=== PATIENT | female | born 1950 | race Caucasian/White ===

== ENCOUNTER 2023-12-14 12:51 | Inpatient (IN) | payer MEDICARE, SELFPAY ==
[2023-12-14] VITALS (15 sets, daily range): BP systolic 122–181; BP diastolic 54–99
[2023-12-14 08:58] LABS: Glucose - Point of Care 313 mg/dl (70-99)
--- NOTE | 2023-12-14 08:59 | ED.CVA ---
History of Present Illness
General
Chief Complaint: CVA/TIA Symptoms
Source: patient and other (Partner)
Time Seen by Provider: 12/14/23 08:49
Onset of Stroke Symptoms
Onset of symptoms known: No
Time pt last seen normal is known: Yes
Date last time pt seen normal: 12/13/23
Travel History
Have you had any contact with someone who has COVID-19?: No
Do you have any symptoms of coronavirus? Fever > 100 degrees, chills, cough, shortness of breath, sore throat, loss of taste or smell, muscle aches, or headache?: No
History of Present Illness
History of Present Illness:
73-year-old female with history of diabetes who presents with flaccid right upper extremity and right lower extremity. She does report difficulty with her speech. Patient went to bed around 10 PM and felt normal. She did get up in the middle
night a few times to go to the bathroom. Partner and patient states that she was able to go to the bathroom at 4 AM and walked okay. When she got up at 7 AM to go to the bathroom she did not. Partner admits that she does not really see medical
care. She has not seen a doctor in many years. She has been taking metformin but has not checked her sugars and does not get lab work. He is unaware of any other medical conditions but admits she has not had other preventive care. No chest pain.
No headache.
Past History
Past History
ED Past Medical History: NIDDM
Phy Exam
Physical Exam
Physical Exam:
CONSTITUTIONAL Patient alert and oriented to person, place and time. Vital signs reviewed.
HEAD atraumatic, normocephalic.
EYES eyelids normal to inspection, Pupils equally round and reactive to light, Extraocular muscles intact, Conjunctiva normal, Sclera normal.
NECK normal range of motion, Trachea midline, no jugular venous distention.
RESPIRATORY CHEST No respiratory distress noted, Chest expansion equal, Bilateral breath sounds clear.
CARDIOVASCULAR regular rate and rhythm, Heart sounds normal.
UPPER EXTREMITY no cyanosis, no edema.
LOWER EXTREMITY l, no cyanosis, no edema.
NEURO slurred speech, flaccid right upper extremity, flaccid right lower extremity, right facial droop.
SKIN skin warm, dry, and normal in color.
PSYCHIATRIC patient oriented to person place and time, Normal affect.
Course
Orders/Labs/Results
Orders:
Orders
12/14/23 08:48
Electrocardiogram (*1) Urgent
Reason for Study: Chest Pain
Cardiac Monitoring- Treatment ONCE
EKG- Treatment ONCE
IV Insert/Care/Rem.- Treatment PRN
12/14/23 08:58
CT Head/Neck Ang STROKE ALERT Urgent
Comment:
Reason For Exam: R sided paralysis
12/14/23 08:59
CT Head W/o Cont STROKE ALERT Urgent
Comment:
Reason For Exam: R side paralysis
12/14/23 09:21
Comprehensive Metabolic Panel Urgent
Prothrombin Time Urgent
12/14/23 09:23
Complete Blood Count/With Diff Urgent
Glycohemoglobin (HgbA1c) Urgent
Troponin I Urgent
12/14/23 09:34
MR Brain Without Contrast Urgent
Comment:
Reason For Exam: Right hemiplegia, ? left pontine or subcort vs MCA
Recent pill cam endoscopy?: No
12/14/23 09:35
Aspirin 300 mg RECTAL NOW STA
12/14/23 09:45
Aspirin 300 mg .ROUTE .STK-MED ONE
12/14/23 09:50
Speech Therapy Eval & Treat Urgent
12/14/23 Lunch
IDDSI 4 - Pureed
At Your Request: Limited, Event Planning Intern Required
Does patient need a safe tray?: No
Reason for opting out of Delivery Driver order writing: Provider Decision
12/14/23 10:23
Occupational Therapy Consult [Ot Eval And Treat] Routine
Physical Therapy Consult [Pt Eval And Treat] Routine
Activity Level: Out of Bed- Chair
12/14/23 10:24
NIH Stroke Scale As Directed
Directions: Per protocol
Comment: Please until order to stop
Neurological Checks As Directed
Frequency: Per unit guidelines
12/14/23 12:29
Admit/Transfer Patient As Directed
Co-Sign Provider:
Level of Care: Inpatient admission
Assign to:: IMU- Intermediate Care
Physician / Group: Stanislaw
Diagnosis: Acute stroke
Reason for Hospitalization: see progress note
Expected length of stay greater than two midnights?: Yes
ELOS- Estimated Length of Stay in days: 4
I certify the patient meets the requirements for IP care: Yes
12/14/23 12:30
Code Status As Directed
Resuscitation Status: Full Code
12/14/23 14:01
Acetaminophen [Tylenol/Feverall] 650 mg RECTAL Q4HPRN PRN
Acetaminophen [Tylenol] 650 mg PO Q4HPRN PRN
Dextrose 50%-Water [Dextrose 50% Syringe] 12.5 grams IV [id number] PRN
Glucagon [GlucaGen] 1 mg IM PRN PRN
12/14/23 14:01
Case Management Consult ONCE
Case Management Consult: Discharge Planning
Comment: stroke/tia
DIETARY CONSULT Routine
Reason for Consult: stroke/TIA
NEUROLOGY CONSULT Urgent
Consulting Provider: Daniel Riley
Was physician already notified: Yes
Reason for consult: stroke
Pharmacist Urgent
Activity As Directed
Activity Level: With Assistance
As Tolerated
Bedside Glucose Monitoring As Directed
Frequency: AC&HS
Comment: Change to q6h if pt on TPN, tube feeding or not eating
NIH Stroke Scale As Directed
Directions: Per protocol
Comment: every shift and with any change in condition or mental status
Neurological Checks As Directed
Frequency: q4h
Additional Instructions:: q4h x 24h upon admission to the floor, then qshift & with any change in condition
and mental status
Patient Education As Directed
Type: Stroke education packet
Comment: provide to patient and family
Pneumatic Compression Sleeves As Directed
Type: Knee high
Vital Signs As Directed
Frequency: Per unit guidelines
DX Deep Vein Thrombosis Video Routine
12/14/23 16:30
Insulin Aspart Corrective Mod [Novolog Flexpen-Moderate Resistance] See Protocol SC AC
12/15/23
Echo 2D MMode Color/Doppler Routine
Reason for Study: Thrombotic source for stroke-like sxs
12/15/23 05:43
Cardiovascular Evaluation IN AM
12/15/23 08:00
Aspirin 300 mg RECTAL DAILY
Aspirin Low Dose EC [Aspir Low (Enteric Coated)] 81 mg PO DAILY
12/15/23 18:00
Atorvastatin [Lipitor] 40 mg PO QPM
Abnormal Lab Results
12/14/23 12/14/23 12/14/23
08:47 09:21 09:23
MCV 72.7 L fL
(81.0-99.0)
MCH 23.1 L pg
(27.0-31.0)
MCHC 31.8 L g/dL
(33.0-37.0)
RDW 14.6 H %
(11.5-14.5)
Plt Count 521 H 10^3/uL
(130-400)
MPV 10.5 H fL
(7.4-10.4)
Absolute Monos (auto) 0.8 H 10^3/uL
(0.1-0.6)
Sodium 134 L mmol/L
(135-145)
Creatinine 0.4 L mg/dL
(0.6-1.0)
Glucose 321 H mg/dl
(70-99)
Hemoglobin A1c 12.9 H %
(4.0-5.6)
POC Glucose 313 H mg/dl
(70-99)
12/14/23 09:23
12/14/23 09:21
Vital Signs
Initial and Last Documented VS:
Initial Vital Signs
BP
181/88
12/14/23 08:46
Last Documented Vital Signs
Temp Pulse Resp BP Pulse Ox
99.9 F 95 23 120/99 96
12/15/23 15:13 12/15/23 14:00 12/15/23 14:00 12/15/23 12:00 12/15/23 14:00
MDM/Problems Addressed
MDM/Problems Addressed:
Acute CVA, hyperglycemia, uncontrolled hypertension
Acute Exacerbation and/or Progression of Chronic Illness: DM
*Radiology
Radiology exam reviewed: radiology read reviewed
*Pulse Oximetry
Patient hypoxic: no
*EKG
Interpreted by ED Provider?: Yes
Interpretation: abnormal
Rate: normal
Rhythm: sinus
[place]: normal axis
QRS Pattern: right bundle branch block
Ischemia: no ischemia
*Homeworker Interpretation
Rate: normal
Interpretation: normal
Rhythm: sinus
*Critical Care Note
Total Time (30-74mins, 75-104mins- exclusive of procedures): 40 minutes
Data Reviewed
Prescriptions/Medications Considered But Not Given:
Consider tPA but outside window for tPA
Patient Management
Discussion with other providers: Hospitalist and Fourdrinier Machine Operator (Case discussed with neurology. Patient was seen by neurology. tPA not recommended admit)
ED Attending Note
-
Portions of this chart may have been created with voice recognition software.� Occasional wrong word or��sound alike� substitutions may have occurred due to the inherent limitations of voice recognition software.
Discharge Plan
Departure
Patient Disposition: Admit
Date of Disposition: 12/14/23
Time of Disposition: 10:00
Admit to: Telemetry
Presentation/result/management discussed w/ accepting MD/DO: Hospitalist
Discharge Problem:
Acute cerebrovascular accident (CVA), Acute hyperglycemia, Uncontrolled hypertension
Interventions
Interventions:
*Risk Screen - Suicide Last Done: 12/14/23 09:17
*General Assessment Last Done: 12/14/23 09:16
*Neglect/Abuse Screening Last Done: 12/14/23 09:17
ED- Fall Risk Assessment Last Done: 12/14/23 09:17
*ED COVID-19 Vaccine History Last Done: 12/14/23 09:16
*Nursing Disposition Last Done: 12/14/23 14:00
ED- Pulmonary Assessment Last Done: 12/14/23 09:28
ED- Neurological Assessment Last Done: 12/14/23 12:58
ED- Cardiac Assessment Last Done: 12/14/23 09:24
ED Swallowing Screen Last Done: 12/14/23 09:49
Discharge Date and Time
Discharge Date/Time: 12/14/23 14:00
--- NOTE | 2023-12-14 09:00 | CON.NEURO4 ---
Addendum entered and electronically signed by Daniel Riley MD 12/15/23 07:24:
NIH stroke scale of 14 on admission
Original Note:
Consultation - Neurology 4
-
CONSULTING PHYSICIAN: Edvin Riley
REFERRING PHYSICIAN: ER
DICTATED BY: Edvin Riley
DATE/TIME OF REQUEST: 12/14/23
DATE/TIME OF CONSULTATION: 12/14/23
Reason for Consultation: Stroke alert, right sided weakness
History of Present Illness:
Patient is a 73 year old right handed woman with history of diabetes mellitus presenting to hospital as stroke alert due to right sided face, arm, and leg hemiplegia. Her last known well was at approximately 4 AM when she got up and walked
normally to urinate. She went to bed last night normal. No recent illnesses or head or neck trauma, takes Metformin for diabetes mellitus, no history of stroke or TIA previously, not on chronic antiplatelets or anticoagulation. No headache
currently.
Past Medical History: Diabetes mellitus
Surgical History: None
Family History: Reviewed and non-contributory
Social History: Lives with her partner, 2 children, retired, no tobacco or cigarettes
Allergies: No known drug allergies
Home Medications: Metformin
Review of Symptoms:
Patient denies any fever, headache, chest pain, shortness of breath, GI or symptoms.
Physical Exam:
Elderly woman, no signs of head or neck trauma, eyes clear, oropharnyx dry, no neck masses, no meningismus, heart rate regular no murmur appreciated, breathing unlabored, abdomen soft non tender, no lower extremity edema seen, no rash or joint
deformity
Neurologic Examination:
Mental Status: Awake and alert, obeys commands consistently, naming, repetition of complex phrases is intact with no evidence for aphasia, no overt hemineglect,
CN: Significant dysarthria present, significant right facial droop present, pupils 3mm equal round and reactive to light bilaterally, visual ac intact to confrontation bilaterally, resting gaze is midine with no gaze preference seen, extra
ocular movements are full
Motor: Right arm and leg flaccid with no movement/hemiplegia 0/5 movement, drops to the table when held in the air, left arm and leg with no drift
Sensory: Decreased to sensation on the right arm and leg
Reflexes: Absent on the right side, 1+ left biceps tricepa patella and achilles
Coordination: No ataxia on left arm and leg, limited due to weakness on the right arm and leg
Gait: Unable to assess
Neuro Imaging:
CT head non contrast with mild hypoattenuation at left insular ribbon, ASPECTS of 9, no chronic infarcts seen, no hemorrhage, no masses or edema, no ventriculomegaly
CTA head and neck no large vessel occlusion seen in territories bilaterally, no carotid stenosis or dissection seen, vertebral arteries and basilar artery patent, no aneurysms seen
Impressions
1. Most likely a left-sided subcortical ischemic stroke in the lucy, thalamus, or basal ganglia producing right side motor/sensory lacunar syndrome with right sided facial weakness, dysarthria/dysphagia and right arm and leg hemiplegia. Most
likely due to small vessel disease with diabetes, possibly undiagnosed hypertension and hyperlipidemia
2. Hyperglycemia
3. Diabetes mellitus type 2, not on on insulin
Patient has the following risk factors for their symptoms:Diabetes, age
IV Tenecteplase/IAT candidacy: Patient with last known normal at 4 AM this morning she woke up to urinate and was able to walk normally for this, greater than 4.5 hours since last known well so is not candidate for thrombolytics/TNK, no large
vessel occlusion on CTA head and neck not an IAT candidate
Recommendations:
1. Permissive hypertension goal less than 220/120 until tomorrow morning at 8 AM, then goal normotension
2. Neurologic checks and NIH scales
3. Goal normoglycemia treat significant hyperglycemia present on admission
4. Cardiac telemetry and check TTE
5. Check MRI of the brain without contrast
6. Aspirin 300 mg daily rectally for now, depending on infarct size on MRI may add clopidogrel
7. Start Atorvastatin 40 mg daily if able to take PO
8. Speech, physical, occupational therapies
9. Stroke education materials
10. Aspiration precautions
11. DVT prophylaxis with IPC's and subcutaneous heparin is appropriate
Total time = 90 minutes
Will follow
Discussed patient care with: Patient and her spouse, ER
--- NOTE | 2023-12-14 09:23 | EDRN ---
Dr. Riley w/ pt at 8:[address] scan and now w/ pt again.
[2023-12-14 09:26] LABS: % Basophils 0.5 % (0-2); % Eosinophils 1.4 % (0-6); % Immature Granulocytes 0.3 % (0-0.5); % Lymphocytes 26.3 % (20.5-51.1); % Monocytes 8.5 % (1.7-9.3); Absolute Basophils 0.1 10^3/uL (0-0.2); Absolute Eosinophils 0.1 10^3/uL (0-0.7); Absolute Lymphocytes 2.4 10^3/uL (1.2-3.4); Absolute Monocytes 0.8 10^3/uL (0.1-0.6); Absolute Neutrophils 5.8 10^3/uL (1.4-6.5); Hematocrit 38.7 % (37.0-47.0); Hemoglobin 12.3 g/dL (12.0-16.0); Mean Corp Hgb Conc. 31.8 g/dL (33.0-37.0); Mean Corpuscular Hgb 23.1 pg (27.0-31.0); Mean Corpuscular Volume 72.7 fL (81.0-99.0); Mean Platelet Volume 10.5 fL (7.4-10.4); Nucleated Red Blood Cells % 0 %; Platelet Count 521 10^3/uL (130-400); Red Blood Cell Count 5.32 10^6/uL (4.20-5.40); Red Cell Dist. Width 14.6 % (11.5-14.5); White Blood Cell Count 9.3 10^3/uL (4.8-10.8)
[2023-12-14 09:38] LABS: INR 1.02; PT 13.2 Sec (11.4-14.6)
--- NOTE | 2023-12-14 09:42 | EDRN ---
Dr. Riley speaking w/ pt and life partner. Explaining MRI to pt and partner.
[2023-12-14] MEDS: ASPIRIN 300 MG RECTAL (09:46)
[2023-12-14 09:52] LABS: ALT (SGPT) 22 U/L (0-35); AST (SGOT) 21 U/L (14-36); Albumin 4.6 g/dl (3.5-5.0); Alkaline Phosphatase 85 U/L (38-126); Blood Urea Nitrogen 11 mg/dl (7-17); Carbon Dioxide 22 mmol/L (22-30); Chloride 100 mmol/L (98-107); Estimated Creatinine Clearance 91 ml/min; Glucose 321 mg/dl (70-99); Potassium 4.3 mmol/L (3.5-5.1); Sodium 134 mmol/L (135-145); Total Bilirubin 0.8 mg/dl (0.2-1.3); Total Protein 7.4 g/dl (6.3-8.2); eGFR > 60.00
[2023-12-14 09:55] LABS: Troponin I < 0.012 ng/ml
--- NOTE | 2023-12-14 10:25 | EDRN ---
Speech therapist in to see pt. Speech therapist stated pt needs stage 5 pureed foods r/t pocketing food in R cheek though does well w/ small sips through a straw.
--- NOTE | 2023-12-14 10:50 | PTOTSP ---
Speech Therapy
Presentation: Patient's expressive output was limited (less than 1 utterance at a time) likley related to possible expressive aphasia and dysarthria (imprecise consonant production, low volume/ tone) during informal conversation with UNIONMELT OPERATOR and
significant other. Right sided weakness/ droop noted.
Swallowing Function: UNIONMELT OPERATOR trialed thins via straw (small, single), puree, softened solids, and regular consistency solids in which patient did not exhibit any overt clinical s/sx of aspiration. Patient did demonstrate right sided oral weakness which
was evidenced by droop, minimal anterior leakage of thin liquids x1, and pocketing of softer solids and regular consistency solids. Given the above information, presentation, and stroke workup, recommend trial of IDDSI level 4 (puree) solids and
thin liquids (via straw, small single sips) with full assistance and supervision and consideration of VSE to r/o silent aspiration.
Recommendations:
1) Trial of IDDSI level 4 (puree) solids and thin liquids (SMALL, SINGLE) sips
2) Strict aspiration precautions
3) Medications as tolerated
4) FULL assistance and supervision with PO
Plan: UNIONMELT OPERATOR will continue to follow; pending hospitalization.
--- NOTE | 2023-12-14 12:06 | PHANOTE ---
Addendum entered by Garett Fontenot 12/14/23 13:17:
12/14/2023, med rec tech, life partner brought pt.'s meds. to hospital allowing me to confirm them.
Original Note:
12/14/2023, med rec tech, spoke to pt.'s life partner to obtain pt.'s med. history; pt. gets her meds. filled in [place]; life partner states that he will bring pt.'s meds. to ; could not confirm with pharmacy fill data or ECW.
--- NOTE | 2023-12-14 12:08 | EDRN ---
Pt's spouse went home to get blister packs of medications.
--- NOTE | 2023-12-14 12:31 | EDRN ---
Dr. Dover in room w/ pt.
--- NOTE | 2023-12-14 13:01 | HPS.HSE ---
Family Physician
-
Family Physician: Bryan Beverly
Chief Complaint
-
Right sided weakness
History of Present Illness
Patient with a history of diabetes on oral hypoglycemic agents and most of her care is in [facility]. She has been here in for 30 years but she goes back and forth and she has doctors there and medical care there. She has not seen a physician here
lately. Has not seen any specialist.She gets her medications from [facility] as well.
She lives with her life partner of 30 years.
No prior history of stroke. She apparently went to bed around 10 PM and felt okay. He got up in the middle of the night to go to the bathroom that was around 4 AM. She got up at 7 AM to go to the bathroom and she can go.
She noted to have right-sided facial droop, right arm and right leg weakness.
Stroke alert was called. Was seen by neurology felt not a candidate for tPA. CT head angiogram showed no evidence of large vessel occlusion.
Denies any headache.
Because of facial weakness she has got some slurred speech but does not seems to be aphasic.
Son arrived at bedside who was able to help me with the past medical history.
Medical History
Past Medical History
Past Medical History: Reports NIDDM; Denies Asthma, CAD, CVA, HTN or Hypercholesterolemia
Past Surgical History: Reports None
Social History
Tobacco: Non-smoker
Alcohol: None
Drug: None
Living: With Family
Employment: Retired
Family History
Family History: Not pertinent
Allergies / Home Medications
Allergies reflects when Allergies were last updated in [facility].
Home Medications with original date entered in [facility]
Allergy/Medication List:
Allergies
Allergy/AdvReac Type Severity Reaction Status Date / Time
No Known Allergies Allergy Unverified 12/14/23 08:47
Home Medications
Lercan 10 mg PO DAILY 12/14/23
esomeprazole magnesium 40 mg capsule,delayed release 40 mg PO DAILY 12/14/23
melatonin 1 gummy PO HSPRN PRN sleep 12/14/23
sitagliptin phosphate 50 mg-metformin 1,000 mg tablet 1 tab PO BID 12/14/23
Review of Systems
-
Unable to obtain full review of systems at this time due to: Other (Difficult because of his slurring of speech because of right facial weakness.)
Physical Exam
Vital Signs
Vital Signs
Temp Pulse Resp BP Pulse Ox
98.3 F 74 19 167/80 94
12/14/23 08:49 12/14/23 12:00 12/14/23 12:00 12/14/23 12:00 12/14/23 12:00
Physical Exam
General: No Apparent Distress
HEENT: Moist mucous membranes
Respiratory: Clear
Cardiac: S1/S2 and Regular Rhythm; No Murmur
GI: Soft, Non Tender, Non Distended and Normal Bowel Sounds
Musculoskeletal: No Edema
Neuro: AO x 3, Slurred Speech and Facial Droop (Right side); No No Motor Deficits (Dense right hemiplegia-strength 1 out of 5 currently both upper and lower extremity. Right facial palsy as well noted.) or Tremors
Psych: Calm
Laboratory Results
-
12/14/23 09:23
12/14/23 09:21
Laboratory Results
PT 13.2 Sec (11.4-14.6) 12/14/23 09:21
INR 1.02 12/14/23 09:21
Total Bilirubin 0.8 mg/dl (0.2-1.3) 12/14/23 09:21
AST 21 U/L (14-36) 12/14/23 09:21
ALT 22 U/L (0-35) 12/14/23 09:21
Alkaline Phosphatase 85 U/L (38-126) 12/14/23 09:21
Troponin I < 0.012 ng/ml 12/14/23 09:23
Data Reviewed
-
CT Scan: Report Reviewed by me (CT angiogram of the head and neck)
MRI: Report Reviewed by me (MRI of the brain)
Lab Data: Labs Reviewed by me
Impression/Plan
-
Acute stroke-patient presented with right face, arm and leg weakness. Out of tPA window. No large vessel occlusion noted. MRI of the brain confirms 3 cm nonhemorrhagic subacute infarct involving the posterior aspect of the lentiform nucleus,
posterior limb of the internal capsule, posterior body of the caudate and tail of the caudate on the left.
Admit to IMU to closely monitor hemodynamics.
Follow stroke protocol.
Permissive hypertension for 24 hours treat only more than 220/120.
Hold antihypertensives.
Aspirin daily. Plavix per neurology.
Follow on telemetry.
Check an echocardiogram.
check lipid panel but initiate on statins for now.
PT OT and speech eval
Diabetes mellitus-check hemoglobin A1c. Start on sliding scale insulin. Hold oral hypoglycemic agents.
Full code
--- NOTE | 2023-12-14 15:04 | PTCARENOTE ---
Rec'd pt from ED, S/P CVA with right side flaccid, right side facial droop. Pt NIHSS 14, unchanged from Ed. Pt with some returning sensation to right side. Family at bedside. Pt with red, large excoriated area to left groin, present on admission.
reports feeling fatigued but no pain. no appetite at this time. Inc of urine. vital sgns stable. Pt and family oriented to unit protocols and procedures.
[2023-12-14 17:20] LABS: Glucose - Point of Care 215 mg/dl (70-99)
[2023-12-14] MEDS: NOVOLOG FLEXPEN-MODERATE RESISTANCE 3 UNITS SC (17:42)
[2023-12-14 21:28] LABS: Glucose - Point of Care 244 mg/dl (70-99)
[2023-12-14] MEDS: MELATONIN 3 MG PO (23:42)
[2023-12-15] VITALS (14 sets, daily range): BP systolic 120–184; BP diastolic 76–128; PULSE 86; O2SAT 95
--- NOTE | 2023-12-15 06:08 | PTCARENOTE ---
no acute events overnight- NIH remains 13- right arm and leg flaccid- decreased sensation to both but patient reports it is getting better. vitals stable, q2t. family at bedside, staying the night. neuro checks completed [id number] per protocol. PW
intact- full bed bath given. pt given PRN melatonin for sleep with positive results. care ongoing.
[2023-12-15 06:27] LABS: HDL Cholesterol 39 mg/dl; LDL Cholesterol, Calculated 146 mg/dl; Total Cholesterol 239 mg/dl (50-199); Triglyceride 274 mg/dl (10-149); Very Low Density Lipoprotein 54 mg/dl (0-30)
--- NOTE | 2023-12-15 07:21 | W.PN.NEURO.1 ---
Today's Communication / Plan
-
-Goal normotension
-Goal normoglycemia, HbA1c pending
-Speech therapy input appreciated, modified diet, aspiration precautions
-Aspirin 81 mg monotherapy, no DAPT given high NIH scale and no intracranial atherosclerosis
-Discussed stroke prognosis and expectations for recovery, secondary stroke prevention, importance of medications and control of diabetes
-Atorvastatin 40 mg daily
-Transthoracic echocardiogram and cardiac telemetry
-PT/OT evaluations
-Eventual PM&R evaluation
Will follow
Neuro Assessment/Plan
Assessment
73 year old woman with diabetes, GERD, obesity presenting to hospital with acute onset of right face, arm and leg severe weakness and hyperglycemia.
Was not candidate for TNK/thrombolytics with outside the 4.5 hour window
No large vessel occlusion on CTA of the head and neck
MRI shows moderate sized ischemic infarction on the right basal ganglia, internal capsule, right sided white matter/palm radiata, no hemorhrages, no other areas of infarction
LDL 146
Blood glucose 313 on admission, HbA1c pending
CTA head and neck with no significant intracranial or cervical artey stenosis
Highest suspicion for etiology is small vessel disease given diabetes, hyperlipidemia, obesity and subcortical infarction with lacunar syndrome.
Cardioembolic mechanism still possible but felt less likely
Subjective/Objective
Subjective Data
Date of Service: December 15, 2023
No acute events, seen by speech therapy, had brain MRI, she is showing a little bit of wiggling the foot and toes on the right, denies any headache
Objective Data
Vital Signs
Temp Pulse Resp BP Pulse Ox
98.3 F 71 17 149/76 94
12/15/23 03:10 12/15/23 06:00 12/15/23 06:00 12/15/23 06:00 12/15/23 06:00
Lab Results
12/14/23 09:23
12/14/23 09:21
PT 13.2 Sec (11.4-14.6) 12/14/23 09:21
INR 1.02 12/14/23 09:21
Sodium 134 mmol/L (135-145) L 12/14/23 09:21
Potassium 4.3 mmol/L (3.5-5.1) 12/14/23 09:21
BUN 11 mg/dl (7-17) 12/14/23 09:21
Glucose 321 mg/dl (70-99) H 12/14/23 09:21
Calcium 10.0 mg/dl (8.4-10.2) 12/14/23 09:21
LDL Cholesterol, Calc 146 mg/dl 12/15/23 05:43
Patient Allergies
No Known Allergies Allergy (Unverified 12/14/23 08:47)
LDL Level: >70, statin ordered
Review of Systems
-
History Source: Patient
All other systems: Reviewed and negative
Constitutional: No Symptoms
EENT: No Symptoms Reported
Respiratory: No Symptoms
Cardiac: No Symptoms
Abdomen/GI: No Symptoms
Genitourinary: No Symptoms
Musculoskeletal: No Symptoms
Skin: No Symptoms
Neuro: Weakness; Negative Headache
Endocrine: No Symptoms
Hematologic / Lymphatic: No Symptoms
Allergy / Immunology: No Symptoms
Physical Exam
-
General: No Apparent Distress and Obese
Eyes: No Ptosis
HEENT: Atraumatic and Moist Mucous Membranes
Neck: Full Range of Motion
Respiratory: No Dyspnea; Negative Wheezes or Rales
Cardiac: No Murmur and S1/S2
GI: Soft and Non-tender
Skin: Warm and Dry
Extremities: No Cyanosis and No Edema
Psych: Negative Agitated
Extended Neurological Exam
Attention Span & Concentration: Awake, Alert, Interactive and Other (Awake, conversational, some psychomotor slowing)
Memory: Able to Recall
Tremor: Hand Tremor Absent
Involuntary Movement: None
Speech: Dysarthric and Other (Naming repetition comprehension intact); Negative Expressive Aphasia or Receptive Aphasia
Cranial Nerve II: Left Eye: Pupillary Reactivity Unremarkable, Pupillary Size Unremarkable and Visual Rosen Intact
Cranial Nerve II: Right Eye: Pupillary Reactivity Unremarkable, Pupillary Size Unremarkable and Visual Rosen Intact
Cranial Nerves III, IV, : Extraocular Movement: Extraocular Movement Full in all Directions
Cranial Nerve VII: Facial Symmetry: Other (Right facial weakness)
Muscle Strength, Overall: Other (Hypotonic right arm which is 0/5, hypotonic right leg which shows 1/5 movements of right toes, left arm and leg full strength)
Touch Sensation: Other (Intact to light touch on arms and legs bilaterally today)
Babinski Sign: Present on Right
Gait & Station: Unable to Assess
Data Reviewed
-
CT-A: Report Reviewed and Image Reviewed
CT Head: Report Reviewed and Image Reviewed
MRI Head: Report Reviewed and Image Reviewed
Echocardiogram: Ordered and Pending
Labs: Report Reviewed
Lipid Profile: Report Reviewed
HgbA1C: Pending
[2023-12-15 07:44] LABS: Glucose - Point of Care 258 mg/dl (70-99)
[2023-12-15] MEDS: NOVOLOG FLEXPEN-MODERATE RESISTANCE 5 UNITS SC ×2 (08:10→12:45)
[2023-12-15] MEDS: NON-FORMULARY ITEM 10 MG PO (08:11)
[2023-12-15] MEDS: PROTONIX 40 MG PO (08:11)
[2023-12-15] MEDS: ASPIR LOW (ENTERIC COATED) 81 MG PO (08:11)
--- NOTE | 2023-12-15 09:41 | W.PN.HOSP.TC ---
Today's Communication/Plan
-
Continue with current treatments
Continue PT OT eval
Consult cattle tester
Follow blood pressure readings and consider transfer out of IMU
Assessment / Plan
Assessment / Plan
Acute stroke-patient presented with right face, arm and leg weakness. Out of tPA window. No large vessel occlusion noted. MRI of the brain confirms 3 cm nonhemorrhagic subacute infarct involving the posterior aspect of the lentiform nucleus,
posterior limb of the internal capsule, posterior body of the caudate and tail of the caudate on the left.
ASA tx ;no Plavix indicated per neuro
Statins initiated.
Continue antihypertensive Friday optimize blood pressure as needed
Await hemoglobin A1c.
Follow on telemetry.
Check an echocardiogram.
Lipid panel noted.
PT OT and speech eval
Consult cattle tester.
Diabetes mellitus-check hemoglobin A1c. Continue on sliding scale insulin. Hold oral hypoglycemic agents.
Full code
Transfer to telemetry later today depending on blood pressure readings
Anticipated Discharge: > 48 hours
Subjective/Interval History
-
Date of Service: December 15, 2023
Remains weak on the right side. Not much improvement yet. No headache.
Objective Data
-
Vital Signs:
Vital Signs
Temp Pulse Resp BP Pulse Ox
97.8 F 80 16 162/95 95
12/15/23 07:13 12/15/23 08:00 12/15/23 08:00 12/15/23 08:00 12/15/23 08:22
I&O
12/14/23 12/15/23 12/16/23
06:59 06:59 06:59
Output Total 450 / 450
Balance -450 / -450
Review of Systems
-
Respiratory: Denies Trouble Breathing
Cardiac: Denies Chest Pain or Palpitations
Abdomen/GI: Denies Nausea or Vomiting
Neuro: Denies Dizzy
Physical Exam
-
General: No Apparent Distress
HEENT: Moist Mucous Membranes
Respiratory: Clear to Auscultation
Cardiac: Regular Rhythm and S1/S2
GI: Soft
Neuro: AO x 3 and Facial Droop (rt facial droop); Negative No Motor Deficits (rt hemiplegia as yesterday), Tremors or Slurred Speech
Psych: Calm
Data Reviewed
-
Labs: Labs Reviewed by me
[2023-12-15 09:52] LABS: Glycohemoglobin (HgbA1c) 12.9 % (4.0-5.6)
[2023-12-15 12:42] LABS: Glucose - Point of Care 297 mg/dl (70-99)
--- NOTE | 2023-12-15 13:12 | CM ---
Addendum entered by Miladys Li RN 12/15/23 13:37:
Clarification: the patient resides with her SO Marissa.
Original Note:
Patient with Dx Acute stroke. Room air. Dysphagia diet. PT & OT recommend acute rehab. Physiatry Consult pending.
Met with patient, SO Marissa & son Eduar;
the patient resides in a 2 story house with 5 ESDRAS, patient was using bedroom/bathroom with bathtub on second floor.
There is a bedroom/bathroom with standing shower on first floor.
The patient was independent in ADLs and ambulation without using an assistive device.
She was active and driving.
The patient has no DME, prior VN or SNF.
PCP - Bryan Beverly
Pharmacy - [facility]
Discussed acute rehab - Marissa & Eduar may be interested in [facility] or [facility] in [place]. They were made aware that refrigerator mover will see her.
Spoke with [facility] Liaison; Dr Lloyd will see the patient. She currently does not have an available bed.
Referrals placed in [facility] for [place] & [place].
Plan follow up after seen by physiatry.
--- NOTE | 2023-12-15 13:48 | PTCARENOTE ---
Pt presents as assessed. Aox3, occasional slurred speech. NIH of 15- see neuro flowsheet. Neuro checks done Q4 hours per orders. NSR on tele monitor. Pt tearful at times, emotional support provided. Family at bedside; updated and educated on plan of
care. Ringing appropriately, call alonso within reach.
--- NOTE | 2023-12-15 14:28 | PTOTSP ---
Dysphagia Therapy
Patient presents with signs concerning for at least mild oral dysphagia. No significant overt signs or complaints of pharyngeal dysphagia and no overt s/s of aspiration observed at this time.
Recommend:
1. IDDSI Level 6 (soft and bite sized), IDDSI Level 0 (thin liquids)
2. Strategies: upright to 90 degrees, small single sips/bites, slow rate, alternate solids and liquids to assist with oral clearance, check for pocketing
3. Continued dysphagia therapy at the acute care level and/after D/C. Video swallow study would be required to r/o unilateral pharyngeal weakness and/or silent aspiration s/p stroke.
4. Continued speech/language therapy at the acute care level and after D/C.
[2023-12-15 18:10] LABS: Glucose - Point of Care 242 mg/dl (70-99)
[2023-12-15] MEDS: NOVOLOG FLEXPEN-MODERATE RESISTANCE 3 UNITS SC (18:43)
[2023-12-15] MEDS: LIPITOR 40 MG PO (18:44)
[2023-12-15 22:00] LABS: Glucose - Point of Care 299 mg/dl (70-99)
[2023-12-16] VITALS (12 sets, daily range): BP systolic 103–154; BP diastolic 83–105; PULSE 99; O2SAT 93
--- NOTE | 2023-12-16 06:41 | PTCARENOTE ---
no acute events overnight, family remains at bedside throughout the night. pt reports sensation to right side is back to normal.
--- NOTE | 2023-12-16 07:24 | W.PN.NEURO.1 ---
Today's Communication / Plan
-
-Goal normotension
-Goal normoglycemia high HbA1c
-Speech therapy input appreciated, modified diet, aspiration precautions
-Aspirin 81 mg monotherapy, no DAPT given high NIH scale and no intracranial atherosclerosis
-Atorvastatin 40 mg daily
-PT/OT evaluations
-Eventual PM&R evaluation
Neuro Assessment/Plan
Assessment
73 year old woman with diabetes, GERD, obesity presenting to hospital with acute onset of right face, arm and leg severe weakness and hyperglycemia.
Was not candidate for TNK/thrombolytics with outside the 4.5 hour window
No large vessel occlusion on CTA of the head and neck
MRI shows moderate sized ischemic infarction on the right basal ganglia, internal capsule, right sided white matter/palm radiata, no hemorhrages, no other areas of infarction
LDL 146
Blood glucose 313 on admission, HbA1c pending
CTA head and neck with no significant intracranial or cervical artey stenosis
Highest suspicion for etiology is small vessel disease given diabetes, hyperlipidemia, obesity and subcortical infarction with lacunar syndrome.
Cardioembolic mechanism still possible but felt less likely
Plan
-Goal normotension
-Goal normoglycemia high HbA1c
-Speech therapy input appreciated, modified diet, aspiration precautions
-Aspirin 81 mg monotherapy, no DAPT given high NIH scale and no intracranial atherosclerosis
-Atorvastatin 40 mg daily
-PT/OT evaluations
-Eventual PM&R evaluation
Subjective/Objective
Subjective Data
Date of Service: December 16, 2023
Objective Data
Vital Signs
Temp Pulse Resp BP Pulse Ox
37.1 C 87 20 146/93 94
12/16/23 03:11 12/16/23 06:00 12/16/23 06:00 12/16/23 06:00 12/16/23 06:00
Lab Results
12/14/23 09:23
12/14/23 09:21
PT 13.2 Sec (11.4-14.6) 12/14/23 09:21
INR 1.02 12/14/23 09:21
Sodium 134 mmol/L (135-145) L 12/14/23 09:21
Potassium 4.3 mmol/L (3.5-5.1) 12/14/23 09:21
BUN 11 mg/dl (7-17) 12/14/23 09:21
Glucose 321 mg/dl (70-99) H 12/14/23 09:21
Calcium 10.0 mg/dl (8.4-10.2) 12/14/23 09:21
LDL Cholesterol, Calc 146 mg/dl 12/15/23 05:43
Patient Allergies
No Known Allergies Allergy (Unverified 12/14/23 08:47)
Data Reviewed
-
MRI Head: Report Reviewed
Labs: Report Reviewed
Lipid Profile: Report Reviewed
HgbA1C: Report Reviewed
Reviewed with: Physician
Old Records: Summarized
Past History
Past History
ED Past Medical History: CVA () and NIDDM
Family History
Family History: Other (reviewed and non-contributory)
Medications
-
Medications:
Generic Name Dose Route Start Last Admin
Trade Name Freq PRN Reason Stop Dose Admin
Acetaminophen 650 mg 12/14/23 14:01
Acetaminophen 650 Mg Rectal Suppository RECTAL 01/11/24 14:00
Q4HPRN PRN
DRISCOLL, mild pain, or temp >100.4F
Acetaminophen 650 mg 12/14/23 14:01
Acetaminophen 325 Mg Tablet PO 01/11/24 14:00
Q4HPRN PRN
DRISCOLL, mild pain, or temp >100.4F
Aspirin 81 mg 12/15/23 08:00 12/15/23 08:11
Aspirin 81 Mg (Enteric Coated) Tablet PO 01/12/24 07:59 81 mg
DAILY TRINY Administration
Atorvastatin Calcium 40 mg 12/15/23 18:00 12/15/23 18:44
Atorvastatin (Lipitor) 20 Mg Tablet PO 01/12/24 17:59 40 mg
QPM TRINY Administration
Dextrose 12.5 grams 12/14/23 14:01
Dextrose 50% (0.5 Grams/Ml) 50 Ml Syringe IV 01/11/24 14:00
[id number] PRN
hypoglycemia
Protocol
Glucagon 1 mg 12/14/23 14:01
Glucagon 1 Mg Vial IM 01/11/24 14:00
PRN PRN
hypoglycemia
Protocol
Insulin Aspart 0 units 12/14/23 16:30 12/15/23 18:43
Insulin Aspart Moderate Resistance 300 Units/3 Ml Pen.Injctr SC 01/11/24 16:29 3 units
AC TRINY Administration
Protocol
Melatonin 3 mg 12/14/23 17:06 12/14/23 23:42
Melatonin 3 Mg Tablet PO 01/11/24 17:05 3 mg
HSPRN PRN Administration
sleep
Lercanidipine [ 0 mg 12/15/23 08:00 12/15/23 08:11
Lercan] 10 Mg, 1 PO 01/12/24 07:59 10 mg
Tablet Po Daily DAILY TRINY Administration
Pantoprazole Sodium 40 mg 12/15/23 08:00 12/15/23 08:11
Pantoprazole 40 Mg Delayed Release Tablet PO 01/12/24 07:59 40 mg
DAILY TRINY Administration
[2023-12-16] MEDS: ASPIR LOW (ENTERIC COATED) 81 MG PO (08:45)
[2023-12-16] MEDS: PROTONIX 40 MG PO (08:45)
[2023-12-16] MEDS: NON-FORMULARY ITEM 1 MG PO (08:46)
--- NOTE | 2023-12-16 09:19 | CON.MD ---
Consultation - Medical
-
Referring Provider: Dr. Josemanuel Dover
Chief Complaint: Stroke
History of Present Illness: 73-year-old right-handed female with PMH (as below) presented to [facility] on 12/14/[facility]23 with right sided weakness when she awoke. CT head with mild hypoattenuation in the left insular ribbon, CT a head of neck
with no large vessel occlusion. Echocardiogram with EF 55-60%. No PFO. MRI noting right basal ganglia, internal capsule, and right-sided white matter/palm radiata infarction. Per neuro felt to be small vessel disease with diabetes, HLD,
obesity, and subcortical infarct with lacunar syndrome, although cardioembolic source cannot be ruled out. Started on aspirin and statin with blood pressure and diabetes control. Noted with at least oral dysphagia and placed on a soft and
bite-size diet with thin liquids per speech.
Past Medical History: Diabetes mellitus, GERD, obesity
Procedure History: None
Family History: Reviewed and noncontributory
Social History:
Functional Level Premorbidly: Independent with all activities
Functional Level Currently:�� Dependent for bed mobility. Min assist eating, mod assist grooming, dependent for toileting and lower extremity self-care.
Tobacco: Denies
Alcohol: Denies
Drug use: Denies
Lives with: Partner of 30 years Felix
24-hour assistance available: Yes
Number of floors: 2
# steps to enter: 5
# steps to second floor: Full flight
Potential First floor set up: Yes, bedroom with standing shower on first floor.
Driving: Yes
Occupation: Retired
Allergies:
Allergy/AdvReac Type Severity Reaction Status Date / Time
No Known Allergies Allergy Unverified 12/14/23 08:47
Review of Systems:
Constitutional: (x) abNormal _fatigue
Eye: (x) Normal _
Ear/Nose/Throat: (x) Normal _
Respiratory: (x) Normal _
Cardiovascular: (x) Normal _
Gastrointestinal: (x) Normal _
Genitourinary: (x) Normal _
Musculoskeletal: (x) Normal _
Integumentary: (x) Normal _
Neurologic: (x) abNormal _stroke with right-sided weakness and difficulty speaking/swallowing
Psychiatric: (x) Normal _
Endocrine: (x) Normal _
Hematologic/Lymphatic: (x) Normal _
Allergic/Immunologic: (x) Normal _
Medications:
Active Current Visit Medication List
Category Date Time Status
Acetaminophen [Tylenol/Feverall] Med 12/14/23 14:01 Active
650 mg RECTAL Q4HPRN PRN
Acetaminophen [Tylenol] Med 12/14/23 14:01 Active
650 mg PO Q4HPRN PRN
Aspirin Low Dose EC [Aspir Low (Enteric Coated)] Med 12/15/23 08:00 Active
81 mg PO DAILY
Atorvastatin [Lipitor] Med 12/15/23 18:00 Active
40 mg PO QPM
Dextrose 50%-Water [Dextrose 50% Syringe] Med 12/14/23 14:01 Active
12.5 grams IV [id number] PRN
Glucagon [GlucaGen] Med 12/14/23 14:01 Active
1 mg IM PRN PRN
Insulin Aspart Corrective Mod [Novolog Flexpen-Moderate Med 12/14/23 16:30 Active
Resistance]
See Protocol SC AC
Lercan Med 12/15/23 08:00 Active
See Dose Instructions PO DAILY
Melatonin Med 12/14/23 17:06 Active
3 mg PO HSPRN PRN
Pantoprazole [Protonix] Med 12/15/23 08:00 Active
40 mg PO DAILY
Vitals:
Temp Pulse Resp BP Pulse Ox
98.8 F 87 20 146/93 94
12/16/23 07:17 12/16/23 06:00 12/16/23 06:00 12/16/23 06:00 12/16/23 06:00
Height 5 ft 5 in
Actual Weight 82.2 kg
Body Mass Index (BMI) 0.0
Physical Exam:
General Appearance/Observation: Well-developed, well-nourished female in no apparent distress.
Pain/Comfort Assessment: Denies
Mood/Affect: Appropriate
Integumentary/Operative Site:
�� Pressure Ulcer Evaluation: absent over heels.
Eyes: Conjunctiva/Lids: normal ��� Pupils: pupils equal round and reactive to light and Accommodation
Ears/Nose/Throat: oral mucosa moist,� throat clear.������������ Lips/Teeth/Gums: normal
Neck: No muscle spasm or tenderness
Cardiovascular: Heart: regular, no murmur
Pulses: dorsalis pedis 2+ bilaterally
Respiratory: Respiratory Effort/Chest Expansion: normal ������ Auscultation: Clear to auscultation bilaterally
Gastrointestinal: abdomen not tender, no distension, normal abdominal bowel sounds
Genitourinary: No Turcios
Extremities: Edema: None Cyanosis: None Trophic changes: None
Neurology Exam:
Orientation: Alert, Oriented to self, Time using information board, Place
Memory: Intact for recent medical concerns
Repetition: Impaired with aphasia
Comprehension: Intact
Two step command: Intact
Naming: Impaired with aphasia
Cranial Nerves:
�� CNII: Pupillary light reflex: Intact��� Visual Field: Intact
�� CN III, IV, : Extraocular muscles: Intact
�� CN V: Facial Sensation at Forehead: Intact, Maxilla: Intact, Mandible: Intact
�� CN VII: Facial movement: Right facial weakness
�� CN VIII: Hearing: Normal
�� CN IX/X: Speech & swallow: Dysphagia, aphasia, dysarthria, Position of Uvula: Midline
�� CN XI: Shoulder shrug: Decreased on right
�� CN XII: Tongue protrusion: Midline
Sensory:
�� Light touch: Intact in bilateral upper and lower extremities, no extinction to double simultaneous stimulation
�
Reflexes:
�� Biceps: 2+ bilaterally
�� Brachioradialis: 2+ bilaterally
�� Triceps: 2+ bilaterally
�� Patellar: 2+ bilaterally
�� Achilles: 2+ bilaterally
�� Babinski: Down going left, upgoing right
�� Clonus: None
�� Je: Negative bilaterally
Cerebellar: Dysmetria/Ataxia: None on left, right too weak to test
Musculoskeletal:Motor: (Manual muscle scale 0-5)
Muscle SA EF WE EE FF FA HF KE DF EHL PF
Right� 0 0 0 0 0 0 0 0 1 1 1
Left 5 5 5 5 5 5 4 5 5 5 5
Tone: Normal in all extremities
Range of Motion: Passively within normal limits in all extremities
Lab Results
Laboratory Data
12/14/23 09:23
12/14/23 09:21
PT 13.2 Sec (11.4-14.6) 12/14/23 09:21
INR 1.02 12/14/23 09:21
Total Bilirubin 0.8 mg/dl (0.2-1.3) 12/14/23 09:21
AST 21 U/L (14-36) 12/14/23 09:21
ALT 22 U/L (0-35) 12/14/23 09:21
Alkaline Phosphatase 85 U/L (38-126) 12/14/23 09:21
Total Protein 7.4 g/dl (6.3-8.2) 12/14/23 09:21
Albumin 4.6 g/dl (3.5-5.0) 12/14/23 09:21
Diagnostic Results: as per HPI
Assessment
73 y/o R-handed F PMH (Diabetes mellitus, GERD, obesity) with 12/14/2023 right dominant hemiparesis, aphasia, dysarthria, aphasia from right basal ganglia, internal capsule, and right-sided white matter/palm radiata infarction with ADL, ambulatory,
speech, and swallow dysfunction.
Plan
PM&R PT/OT to increase independence with ADLs, improve balance, coordination, endurance, strength, mobility, community reintegration, decreased burden of care on others and family education.
CVA: Secondary prophylaxis with aspirin, statin, and blood pressure control (SBP less than 180 and diastolic less than 100 to participate with therapy for ischemic stroke). Continue to monitor neurologic status.
Right dominant hemiparesis: High risk for falls and sliding out of chair/bed. Safety reinforced.
- Avoid using affected arm to help lift or pull patient as this will cause trauma to the shoulder.
- Suggest right multi Podus boot to protect heel and prevent plantarflexion contracture.
Dysphagia: speech, oral care protocol, aspiration precautions.� Advance to soft and bite sized with thin liquid diet as tolerated.
Dysarthria: speech
Aphasia: speech
HTN: Lercanidipine
HLD: Statin
Uncontrolled DM II: Accu-Cheks, insulin sliding scale, metformin, aspart, lantus.
FEN: See dysphagia
Psych: Psychology consult.� Monitor mood, adjust medications as needed.
Skin: monitor for pressure sores/rashes/lesions.
Pain: acetaminophen as needed.
Bowel: Colace and Senna, PRN bisacodyl.
Bladder: Time void, PVRs, PRN straight cath.
GERD: Pantoprazole
DVT Prophylaxis: Mechanical and Lovenox with significant right hemiparesis.
Pulmonary: Incentive spirometry
Obesity: Continue to ip counsel patient about diet adjustments to control obesity. Body habitus and increased force to move body and extremities causes further difficulty with functional tasks.
Safety: Continue to reinforce assistance with all transfers.
Code Status:� Full code
Dispo (date/plan/equipment needs): Home with family care.
Functional and Medical Goals: Modified Independent with ADL�s, ambulation, transfers
Discharge Destination: Acute inpatient rehabilitation
A total of 65 minutes were spent with the patient preparing for the evaluation, obtaining history, performing examination and evaluation, counseling, data review, case management, care coordination, psychiatric orderly, and EMR documentation.
Summary of recommendations:
Discharge Destination: Acute inpatient rehabilitation
Right dominant hemiparesis: High risk for falls and sliding out of chair/bed. Safety reinforced.
- Avoid using affected arm to help lift or pull patient as this will cause trauma to the shoulder.
- Suggest right multi Podus boot to protect heel and prevent plantarflexion contracture.
Dysphagia: speech, oral care protocol, aspiration precautions.� Advance to soft and bite sized with thin liquid diet as tolerated.
Dysarthria: speech
Aphasia: speech
DVT Prophylaxis: Mechanical and Lovenox with significant right hemiparesis.
Thank you for allowing me to care for your patient. Please contact me with any questions or concerns.
--- NOTE | 2023-12-16 09:31 | W.PN.HOSP.TC ---
Today's Communication/Plan
-
Diabetic nurse educator for insulin management
Await electronics hardware design engineer input
DC planning
Assessment / Plan
Assessment / Plan
Acute stroke-patient presented with right face, arm and leg weakness. Out of tPA window. No large vessel occlusion noted. MRI of the brain confirms 3 cm nonhemorrhagic subacute infarct involving the posterior aspect of the lentiform nucleus,
posterior limb of the internal capsule, posterior body of the caudate and tail of the caudate on the left.
ASA tx ;no Plavix indicated per neuro
Statins initiated.
Continue antihypertensive Friday optimize blood pressure as needed
Optimize glycemic control. Elevated hemoglobin A1c noted.
Follow on telemetry.
Transthoracic echocardiogram with normal LV function and no significant valve abnormalities. No evidence of cardiac emboli
Lipid panel noted. Continue with statins
Continue PT OT and speech eval
Consulted electronics hardware design engineer.
Diabetes mellitus- hemoglobin A1c 12.9. Patient would need to go once Lantus and nutritional insulin. This was discussed with patient and the family who are in agreement. Consult diabetes nurse practitioner for insulin management.. Continue on
sliding scale insulin. Hold oral hypoglycemic agents.
Full code
Transfer to telemetry later today depending on blood pressure readings
Patient since admission had a deficit of right-sided motor weakness and facial weakness. Speech was a bit slurred from right facial weakness but no aphasia.
She is alert and oriented. No confusions noted. No delirium noted. No encephalopathy.
Patient seems to have an understanding that she had a stroke and she needs to modify her risk factors.
She also has understanding that she needs to go to rehab to get better.
I feel that she is in sound mind to make her medical decisions and also her personal decisions. In ED she told me that his son Eduar who was at bedside in ED and also her partner Marissa to be jointly making the decisions for her and no one else.
She again today said same thing while her son Eduar and her partner Marissa are present at bedside.
Anticipated Discharge: 24 - 48 hours
Subjective/Interval History
-
Date of Service: December 16, 2023
Remains weak on the right side.
No overnight new symptoms or issues.
Objective Data
-
Vital Signs:
Vital Signs
Temp Pulse Resp BP Pulse Ox
98.8 F 87 20 146/93 94
12/16/23 07:17 12/16/23 06:00 12/16/23 06:00 12/16/23 06:00 12/16/23 06:00
I&O
12/15/23 12/16/23 12/17/23
06:59 06:59 06:59
Output Total 450 / 450 950 / 950
Balance -450 / -450 -950 / -950
Review of Systems
-
Respiratory: Denies Trouble Breathing
Cardiac: Denies Chest Pain
Abdomen/GI: Denies Nausea or Vomiting
Neuro: Denies Dizzy or Headache
Physical Exam
-
General: No Apparent Distress
HEENT: Moist Mucous Membranes
Respiratory: Clear to Auscultation
Cardiac: Regular Rhythm (No events on the color television console monitor so far pertaining to arrhythmias) and S1/S2
GI: Soft
Neuro: Awake, Alert, AO x 3 and Facial Droop (Right side); Negative No Motor Deficits (Right hemiparesis as before) or Slurred Speech
Psych: Calm; Negative Confused or Agitated
Data Reviewed
-
Labs: Labs Reviewed by me
[2023-12-16 09:54] LABS: Glucose - Point of Care 259 mg/dl (70-99)
[2023-12-16] MEDS: NOVOLOG FLEXPEN-MODERATE RESISTANCE 5 UNITS SC (09:57)
--- NOTE | 2023-12-16 11:28 | PN.DE.MGMTRT ---
Insulin Management
- -
12/16/2023 Diabetes Management Consult
Patient admitted with R sided weakness, acute stroke. She has not seen a doctor in 6 years. Her A1C is 12.9%, cr .4, eGFR >60. Prior to admission was taking sitagliptin/metformin BID but not with meals. She was in [facility] 6 years ago and
had extremely high glucose and her brother and etffgi-bj-txy, who are physicians started the metformin, Januvia and since then she has received the medications from [facility]. She never followed up with a doctor here in the [place].
Has a glucose monitor from [facility].
Patient is alert and awake but son and SO have asked most of the questions and are participating in the conversation regarding diabetes management.
Will start lantus 15 units @ HS tonight, check 3AM glucose. Will start ac novolog 4 units and change moderate corrective to low corrective with Januvia 100 mg daily and metformin 1000 BID.
Due to lack of insurance discussed [employer] [facility] glucose monitor and insulin. Will assess daily for needed insulin changes.
Diabetes History
- -
Type of Diabetes: 2 requiring insulin
Pre-Admission Diabetes Regimen
Lab Results
Hemoglobin A1c Cancelled 12/15/23 06:00
Insulin Pump Settings
IP Diabetes Regimen
12/15/23 12/15/23 12/15/23
12:18 17:57 21:48
POC Glucose 297 H 242 H 299 H
12/16/23
09:43
POC Glucose 259 H
Patient Education
[2023-12-16 12:04] LABS: Glucose - Point of Care 347 mg/dl (70-99)
[2023-12-16] MEDS: JANUVIA 100 MG PO (12:17)
[2023-12-16] MEDS: NOVOLOG FLEXPEN 4 UNITS SC ×2 (12:18→16:59)
[2023-12-16] MEDS: NOVOLOG FLEXPEN-MODERATE RESISTANCE SC (12:19)
[2023-12-16] MEDS: NOVOLOG FLEXPEN-LOW RESISTANCE 5 UNITS SC (12:20)
--- NOTE | 2023-12-16 13:06 | CM ---
Patient with Dx Acute stroke. Room air. Dysphagia diet. PT & OT recommend acute rehab. Physiatry Consult pending. Patient transferred from IMU today to .
Spoke with [facility]; they are unable to accept the patient as the patient only has Medicare Part A.
Met with patient, SO Geff & son Eduar with [facility] present; [facility] can accept the patient tomorrow and patient/family agrees. Patient/family aware that [facility] has declined her.
Extensive conversations with son Eduar in an effort to be helpful regarding her insurance. Son made aware that patient would need Medicare Part B to pay for outpatient services, and Medicare Part D for medications, and guided him to Medicare web
site for further information or to sign up for additional benefits. Son discovered on the web site that patient would be penalized with an additional fee for late enrollment in Medicare Part B. Informed him that alternative options to straight
Medicare would be calling a managed care insurance to enroll, calling [facility] or an life insurance actuary. Son asked if he added Medicare B & D if benefits could be made retroactive and told him it could not.
Spoke with [facility] (ph [phone]); they are able to accept the patient tomorrow. She is aware that the patient has Medicare A only at this time - she will meet with the son again on to help him re; insurance questions and
concerns. The phone for report [phone], fax [phone].
Plan [facility] tomorrow by ambulance.
--- NOTE | 2023-12-16 14:16 | PTCARENOTE ---
Rcvd pt from IMU via transport. The pt is here with an acute CVA. Pt is a+ox3 and in no distress. Pt is on tele (nsr) purewick that came with pt was removed due to skin breakdown. Cream applied and verbal order for Desenex placed. Assessment done
of this pt. [facility] is (12) for me. Q2 turns. Aspiration precautions, sign at [facility], pt has attends on and open to air. pt is laying in POC in her hospital bed.
[2023-12-16 16:33] LABS: Glucose - Point of Care 267 mg/dl (70-99)
[2023-12-16] MEDS: NOVOLOG FLEXPEN-LOW RESISTANCE 3 UNITS SC (17:00)
--- NOTE | 2023-12-16 17:00 | PTCARENOTE ---
patient was received in bed - awake, alert and verbally responsive. patient can understand when being spoken too and can make her needs known. patient did not have any behavioral/verbal indicators of discomfort or pain. patient's neurological score
is 12. patient continues to have facial droop, right sided weakness to upper/lower extremities and slurred speech. aspiration precautions maintained and family was reminded of the importance. patient had a good appetite for dinner requiring
assistance. fluids encouraged throughout this nurse's shift. patient remains was kept clean, dry and comfortable during this shift. patient's significant remained at bedside. patient's bed is in the lowest position possible with call alonso, telephone
and television remote within reach
[2023-12-16] MEDS: GLUCOPHAGE 1000 MG PO (17:01)
[2023-12-16] MEDS: LIPITOR 40 MG PO (17:02)
[2023-12-16 21:26] LABS: Glucose - Point of Care 291 mg/dl (70-99)
[2023-12-16] MEDS: LANTUS 0.149999999999999994 UNITS SC (21:27)
[2023-12-17 00:22] VITALS: BP 147/89
[2023-12-17 03:55] VITALS: BP 147/77
--- NOTE | 2023-12-17 05:13 | DOWNTIME ---
There was a [employer] Client Mathematical Engineering Technician Downtime on 12/17/2023 from 0100 to 12/17/2023 at 0439. Downtime documentation of patient's care, including medication administrations, has been reconciled in the electronic record per guidelines. Refer to the
patient's paper chart under the miscellaneous tab to see printed paper medication records and downtime forms.
[2023-12-17 07:00] VITALS: BP 155/84
[2023-12-17 07:02] LABS: Glucose - Point of Care 286 mg/dl (70-99)
--- NOTE | 2023-12-17 08:10 | PN.DE.MGMTRT ---
Insulin Management
- -
12/17/2023 Diabetes Management Consult
Patient admitted with R sided weakness, acute stroke. She has not seen a doctor in 6 years. Her A1C is 12.9%, cr .4, eGFR >60. Prior to admission was taking sitagliptin/metformin BID but not with meals. She was in [facility] 6 years ago and
had extremely high glucose and her brother and estujd-kq-bxq, who are physicians started the metformin, Januvia and since then she has received the medications from [facility]. She never followed up with a doctor [place] in the [place].
Has a glucose monitor from [facility].
Patient is awake and alert, speech slurred, s/o at bedside. Receptive to discussion regarding increased insulin doses.
Lantus 15 units @ HS started last night, 3AM glucose not recorded. Fasting glucose this AM 286. Will increase lantus to 22 units @ hs. AC novolog 4units started with lunch yesterday, pre meal glucose remains > 200 requiring up to 5 additional
units of corrective insulin. Will increase AC novolog to 8 units with low corrective, Januvia 100 mg daily and metformin 1000 BID.
Family in the process of applying for insurance, due to lack of insurance discussed [employer] [facility] glucose monitor and insulin. Patient for transfer to [facility].
Diabetes History
- -
Type of Diabetes: 2 requiring insulin
Pre-Admission Diabetes Regimen
Lab Results
Hemoglobin A1c Cancelled 12/15/23 06:00
Insulin Pump Settings
IP Diabetes Regimen
12/16/23 12/16/23 12/16/23
09:43 11:54 16:31
POC Glucose 259 H 347 H 267 H
12/16/23 12/17/23
21:25 07:01
POC Glucose 291 H 286 H
Meal type: Lunch
Amount consumed: 100%
Patient Education
[2023-12-17] MEDS: NOVOLOG FLEXPEN-LOW RESISTANCE 3 UNITS SC (08:46)
[2023-12-17] MEDS: JANUVIA 100 MG PO (08:47)
[2023-12-17] MEDS: GLUCOPHAGE 1000 MG PO (08:47)
[2023-12-17] MEDS: PROTONIX 40 MG PO (08:47)
[2023-12-17] MEDS: ASPIR LOW (ENTERIC COATED) 81 MG PO (08:47)
[2023-12-17] MEDS: NON-FORMULARY ITEM 10 MG PO (08:49)
[2023-12-17] MEDS: NOVOLOG FLEXPEN 4 UNITS SC (08:55)
--- NOTE | 2023-12-17 10:27 | W.PN.HOSP.TC ---
Today's Communication/Plan
-
dc
Assessment / Plan
Assessment / Plan
Acute stroke-patient presented with right face, arm and leg weakness. Out of tPA window. No large vessel occlusion noted. MRI of the brain confirms 3 cm nonhemorrhagic subacute infarct involving the posterior aspect of the lentiform nucleus,
posterior limb of the internal capsule, posterior body of the caudate and tail of the caudate on the left.
ASA tx ;no Plavix indicated per neuro
Statins initiated.
Continue antihypertensive Friday optimize blood pressure as needed - add low dose lisinopril
Optimize glycemic control. Elevated hemoglobin A1c noted.
Follow on telemetry.
Transthoracic echocardiogram with normal LV function and no significant valve abnormalities. No evidence of cardiac emboli
Lipid panel noted. Continue with statins
Continue PT OT and speech eval
Diabetes mellitus- hemoglobin A1c 12.9.
#Lantus and nutritional insulin. Also initiated back on oral hypoglycemic agents. Increase the dose of insulin today and continue to optimize dose as needed.
Patient agreeable to continue with insulin going forward.
Hypertension-patient on calcium channel vani. Add low-dose lisinopril
Medically stable for discharge to acute rehab
More than 30 minutes spent in discharge including
Final examination of the patient
Summarizing hospital stay
Instructions for continuing care to all relevant caregivers
Preparation of discharge records, prescriptions, and referral forms
Total time spent (in minutes): 35
DW CM
Full code
Anticipated Discharge: Today
Subjective/Interval History
-
Date of Service: December 17, 2023
No new symptoms
Remains weak in right side
Speech is ok but at times word finding difficutly per her partner at bedside
Objective Data
-
Vital Signs:
Vital Signs
Temp Pulse Resp BP Pulse Ox
98.2 F 90 18 155/84 94
12/17/23 07:00 12/17/23 07:00 12/17/23 07:00 12/17/23 07:00 12/17/23 07:00
I&O
12/16/23 12/17/23 12/18/23
06:59 06:59 06:59
Intake Total 240 / 240
Output Total 950 / 950
Balance -950 / -950 240 / 240
Review of Systems
-
Respiratory: Denies Trouble Breathing
Cardiac: Denies Chest Pain
Abdomen/GI: Denies Nausea or Vomiting
Neuro: Denies Headache
Physical Exam
-
General: No Apparent Distress
HEENT: Moist Mucous Membranes
Respiratory: Clear to Auscultation
Cardiac: Regular Rhythm and S1/S2
GI: Soft
Neuro: AO x 3 and Slurred Speech; Negative No Motor Deficits (right hemiplegia as before ) or Facial Droop
Psych: Calm
--- NOTE | 2023-12-17 10:35 | W.DS.TRANS ---
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
-
Discharge Instructions:
Discharge Diagnosis/Procedures Acute stroke
Diet Low Cholesterol
Activity As tolerated
Driving Restrictions No driving
Bathing Restrictions None
Other Services PT,OT
Instructions:
Stand-Alone Forms:
Changes to Home Medications: Yes
Discharge Medications:
DC Medications w/original date entered in [facility]
Lercan 10 mg PO DAILY Blood Pressure 12/14/23
esomeprazole magnesium 40 mg capsule,delayed release 40 mg PO DAILY Gastrointestinal Issue 12/14/23
melatonin 1 gummy PO HSPRN PRN sleep 12/14/23
sitagliptin phosphate 50 mg-metformin 1,000 mg tablet 1 tab PO BID Diabetes 12/14/23
Insulin Glargine Lantus [Lantus] 22 units As Directed mls/hr SC HS 12/17/23
aspirin 81 mg tablet,delayed release 81 mg PO DAILY #1 tab 12/17/23
atorvastatin 20 mg tablet 40 mg (2 x 20 mg) PO QPM #1 tab 12/17/23
insulin aspart U-100 100 unit/mL (3 mL) subcutaneous pen 8 unit (0.08 mL) SC AC #15 mL 12/17/23
lisinopril 5 mg tablet 5 mg PO DAILY #1 tab 12/17/23
Home Medication Changes
New medication-lisinopril, Lipitor, aspirin, Lantus, NovoLog with meals
Pending Results: No
[2023-12-17 11:00] VITALS: BP 148/84
[2023-12-17 11:17] LABS: Glucose - Point of Care 323 mg/dl (70-99)
[2023-12-17] MEDS: ZESTRIL 5 MG PO (11:24)
[2023-12-17] MEDS: NOVOLOG FLEXPEN 8 UNITS SC (11:26)
[2023-12-17] MEDS: NOVOLOG FLEXPEN-LOW RESISTANCE 4 UNITS SC (11:27)
--- NOTE | 2023-12-17 12:28 | CM ---
met with patient and her intermediate card tender partner scar who is poa.call from [facility].bed available today.checked with attending who confirmed patient ready for dc to rehab.scar singed medicare letter.asked nurse judith gay to call report to
[phone].fax number is [phone].also faxed requested clinicals to [facility].asked for transport to be set up between 1 and 2 pm if possible.Plan:discharge to [facility].
== END 2023-12-17 13:52 | DRG 65 ==
LOC: 4 EAST ACU 12:51
PROVIDERS: ADMITTING PHYSICIAN Internal Medicine; CONSULT PHYSICIAN Physical Medicine & Rehabilitation; CONSULT PHYSICIAN Student in an Organized Health Care Education/Training Program; EMERGENCY PHYSICIAN Emergency Medicine; FAMILY PHYSICIAN Family Medicine
DX: I63.9 Cerebral infarction, unspecified (principal); G81.91 Hemiplegia, unspecified affecting right dominant side; Z79.82 Long term (current) use of aspirin; E11.65 Type 2 diabetes mellitus with hyperglycemia; G46.7 Other lacunar syndromes; I10 Essential (primary) hypertension; E66.9 Obesity, unspecified; Z68.30 Body mass index [BMI] 30.0-30.9, adult
CPT/HCPCS: 51798; 70450; 70496; 70498; 70551; 80053; 80061; 82962; 83036; 84484; 85025; 85610; 92523; 92526; 93005; 93306; 97110; 97112; 97163; 97167; 97530; 99291; Q9967

== ENCOUNTER → 2024-01-12 11:38 | Outpatient (REF) | payer OTHER, MEDICARE, SELFPAY ==
[2024-01-12 12:25] LABS: % Basophils 0.8 % (0-2); % Eosinophils 6.2 % (0-6); % Immature Granulocytes 0.4 % (0-0.5); % Lymphocytes 21.2 % (20.5-51.1); % Monocytes 6.2 % (1.7-9.3); % Neutrophils 65.2 % (42.2-75.2); Absolute Basophils 0.1 10^3/uL (0-0.2); Absolute Eosinophils 0.6 10^3/uL (0-0.7); Absolute Lymphocytes 2.2 10^3/uL (1.2-3.4); Absolute Monocytes 0.6 10^3/uL (0.1-0.6); Absolute Neutrophils 6.8 10^3/uL (1.4-6.5); Hemoglobin 9.8 g/dL (12.0-16.0); Mean Corp Hgb Conc. 29.7 g/dL (33.0-37.0); Mean Corpuscular Hgb 23.1 pg (27.0-31.0); Mean Corpuscular Volume 77.8 fL (81.0-99.0); Mean Platelet Volume 10.9 fL (7.4-10.4); Nucleated Red Blood Cells % 0 %; Platelet Count 365 10^3/uL (130-400); Red Blood Cell Count 4.24 10^6/uL (4.20-5.40); Red Cell Dist. Width 18.1 % (11.5-14.5); White Blood Cell Count 10.4 10^3/uL (4.8-10.8)
[2024-01-12 12:49] LABS: ALT (SGPT) 18 U/L (0-35); AST (SGOT) 23 U/L (14-36); Albumin 3.4 g/dl (3.5-5.0); Alkaline Phosphatase 63 U/L (38-126); Blood Urea Nitrogen 22 mg/dl (7-17); Calcium 9.5 mg/dl (8.4-10.2); Carbon Dioxide 20 mmol/L (22-30); Chloride 107 mmol/L (98-107); Glucose 142 mg/dl (70-99); HDL Cholesterol 39 mg/dl; LDL Cholesterol, Calculated 7 mg/dl; Potassium 4.2 mmol/L (3.5-5.1); Sodium 139 mmol/L (135-145); Total Bilirubin 0.3 mg/dl (0.2-1.3); Total Cholesterol 80 mg/dl (50-199); Total Protein 5.8 g/dl (6.3-8.2); Triglyceride 173 mg/dl (10-149); Very Low Density Lipoprotein 34 mg/dl (0-30); eGFR > 60.00
[2024-01-12 13:24] LABS: Free T4 1.04 ng/dl (0.78-2.19)
[2024-01-12 13:38] LABS: TSH 3.77 uIU/ml (0.47-4.68)
[2024-01-12 13:57] LABS: Vitamin B12 250 pg/ml (239-931)
== END ==
LOC: OLABN 11:38
PROVIDERS: ATTENDING PHYSICIAN Student in an Organized Health Care Education/Training Program
DX: R53.83 Other fatigue (principal); E11.40 Type 2 diabetes mellitus with diabetic neuropathy, unspecified; I10 Essential (primary) hypertension; Z79.899 Other long term (current) drug therapy
CPT/HCPCS: 36415; 80053; 80061; 82607; 84439; 84443; 85025

== ENCOUNTER 2024-02-04 13:13 | Emergency (ER) | payer MEDICARE, SELFPAY ==
[2024-02-04 13:17] VITALS: BP 123/76
[2024-02-04 13:36] LABS: % Basophils 0.3 % (0-2); % Immature Granulocytes 0.7 % (0-0.5); % Lymphocytes 18.6 % (20.5-51.1); % Monocytes 6.4 % (1.7-9.3); Absolute Eosinophils 0.2 10^3/uL (0-0.7); Absolute Immature Granulocytes 0.1 10^3/uL (0-0.05); Absolute Lymphocytes 1.4 10^3/uL (1.2-3.4); Absolute Monocytes 0.5 10^3/uL (0.1-0.6); Absolute Neutrophils 5.5 10^3/uL (1.4-6.5); Hematocrit 27.7 % (37.0-47.0); Hemoglobin 8.8 g/dL (12.0-16.0); Mean Corp Hgb Conc. 31.8 g/dL (33.0-37.0); Mean Corpuscular Hgb 23.3 pg (27.0-31.0); Mean Corpuscular Volume 73.5 fL (81.0-99.0); Mean Platelet Volume 9.6 fL (7.4-10.4); Nucleated Red Blood Cells % 0 %; Platelet Count 485 10^3/uL (130-400); Red Blood Cell Count 3.77 10^6/uL (4.20-5.40); Red Cell Dist. Width 17.9 % (11.5-14.5); White Blood Cell Count 7.7 10^3/uL (4.8-10.8)
--- NOTE | 2024-02-04 14:01 | ED.GENMED ---
History of Present Illness
General
Chief Complaint: Breathing Problem
Source: patient
Exam Limitations: none
Time Seen by Provider: 02/04/24 13:36
Nursing documentation reviewed up to this point in time: agreed with
Travel History
Have you had any contact with someone who has COVID-19?: No
Do you have any symptoms of coronavirus? Fever > 100 degrees, chills, cough, shortness of breath, sore throat, loss of taste or smell, muscle aches, or headache?: Yes
Symptoms:: cough
History of Present Illness
History of Present Illness:
Patient with history of recent CVA with speech impairment and residual right-sided deficit, and recently treated for pneumonia, presents to ED from [facility] secondary to witnessed syncopal episode after showering this afternoon. Per patient and
son, patient who currently requires oxygen secondary to recently treated pneumonia, had been taken off oxygen when she went to shower. When she returned from shower, back in her room, that is when she was noted to 'pass out' for brief period with
low pulse ox. Patient was placed back on oxygen and 911 was called. At the time of evaluation ED, patient is alert, awake, and oriented, and is without any complaints. Per son, patient has had '2 best days' since recent CVA and pneumonia.
Patient has been feeling weak with decreased appetite since CVA. Denies chest pain. Denies chest palpitations. Denies nausea, vomiting, or diarrhea. Denies headache. Denies dizziness.
Past History
Past History
ED Past Medical History: CVA () and NIDDM
Family History
Family History: Other (reviewed and non-contributory)
Review of Systems
Review of Systems
Allergies reviewed?: Yes
All Other Systems: ROS reviewed and negative except as documented in HPI and ROS
Constitutional: Reports no symptoms
EENT: Reports no symptoms
Respiratory: Reports no symptoms
Cardiac: Reports syncope
ABD/GI: Reports no symptoms
: Reports no symptoms
Musculoskeletal: Reports no symptoms
Skin: Reports no symptoms
Neurological: Reports no symptoms
Phy Exam
Physical Exam
Physical Exam:
Physical Exam
General: no apparent distress, not acutely ill. afebrile
Head: nc/at. eomi
Neck: supple. no meningeal signs.
Heart: s1/s2 regular rate and rhythm, no murmur. equal radial pulses.
Lungs: no acute respiratory distress. clear bilaterally
Abdomen: normal bowel sounds. not tender.
Neuro: alert and oriented. mildly slurred speech. RUE-flaccid, RLE: 2/5 motor strength.
Skin: no rash
Psychiatric: well kept. interactive and cooperative
Extremities: no edema. no calf tenderness.
Scores
Heart Failure Risk
Heart Failure Risk Score: Not Applicable
Course
Orders/Labs/Results
Orders:
Orders
02/04/24 13:24
Electrocardiogram (*1) Urgent
Reason for Study: Shortness of Breath
02/04/24 13:25
EKG- Treatment ONCE
02/04/24 13:29
BNP [NT-proBNP] Urgent
Basic Metabolic Panel Urgent
Complete Blood Count/With Diff Urgent
Troponin I Urgent
02/04/24 13:38
CR Chest - 2 Views Urgent
Comment:
Reason For Exam: sob/hypoxia
02/04/24 14:05
Potassium Chloride [KCl] 20 meq PO NOW STA
02/04/24 14:06
0.9% Sodium Chloride 250 ml [Nss] 250 ml IV BOLUS
02/04/24 14:32
D-Dimer Urgent
Abnormal Lab Results
02/04/24 02/04/24
13:29 14:32
RBC 3.77 L 10^6/uL
(4.20-5.40)
Hgb 8.8 L g/dL
(12.0-16.0)
Hct 27.7 L %
(37.0-47.0)
MCV 73.5 L fL
(81.0-99.0)
MCH 23.3 L pg
(27.0-31.0)
MCHC 31.8 L g/dL
(33.0-37.0)
RDW 17.9 H %
(11.5-14.5)
Plt Count 485 H 10^3/uL
(130-400)
Abs Immat Gran (auto) 0.1 H 10^3/uL
(0-0.05)
Immature Gran % 0.7 H %
(0-0.5)
Lymphocytes % 18.6 L %
(20.5-51.1)
D-Dimer 0.67 H ug/mlFEU
(0.00-0.50)
Potassium 3.0 L mmol/L
(3.5-5.1)
Creatinine 0.4 L mg/dL
(0.6-1.0)
Glucose 133 H mg/dl
(70-99)
02/04/24 13:29
02/04/24 13:29
Vital Signs
Initial and Last Documented VS:
Initial Vital Signs
Temp Pulse Resp BP Pulse Ox
98.3 F 100 25 123/76 90
02/04/24 13:17 02/04/24 13:17 02/04/24 13:17 02/04/24 13:17 02/04/24 13:17
Last Documented Vital Signs
Temp Pulse Resp BP Pulse Ox
98.1 F 89 19 109/68 94
02/04/24 16:29 02/04/24 16:29 02/04/24 16:29 02/04/24 16:29 02/04/24 16:29
MDM/Problems Addressed
MDM/Problems Addressed:
Patient with an unremarkable workup in ED, including blood work, chest x-ray, as well as D-dimer. Patient remains hemodynamically stable and requiring baseline 2 L of oxygen via nasal cannula. Patient's presenting symptoms and noted hypoxia
prehospital, likely secondary to patient having taken off oxygen for the purpose of taking shower. Brief syncopal episode, without any confusion, likely multifactorial, include deconditioning as well as likely vagal episode. Otherwise, patient is
able to be discharged back to [facility] for continual care.
*Critical Care Note
Total Time (30-74mins, 75-104mins- exclusive of procedures): Not Applicable
ED Attending Note
-
Portions of this chart may have been created with voice recognition software.� Occasional wrong word or��sound alike� substitutions may have occurred due to the inherent limitations of voice recognition software.
Discharge Plan
Departure
Patient Disposition: Detention/SNF
Date of Disposition: 02/04/24
Time of Disposition: 16:11
Discharge Problem:
Syncope, Hypoxia
Instructions: Fainting, Adult ED
Prescriptions:
No Action
Lercan
10 mg PO DAILY
esomeprazole magnesium 40 mg Capsule,Delayed Release(Dr/Ec)
40 mg PO DAILY
sitagliptin phos-metformin 50-1,000 mg Tablet
1 tab PO BID
melatonin
1 gummy PO HSPRN PRN (Reason: sleep)
lisinopril 5 mg Tablet
5 mg PO DAILY Qty: 1 0RF
insulin aspart U-100 100 unit/mL (3 mL) Insulin Pen
8 unit SC AC Qty: 15 0RF
atorvastatin 20 mg Tablet
40 mg PO QPM Qty: 1 0RF
aspirin 81 mg Tablet,Delayed Release (Dr/Ec)
81 mg PO DAILY Qty: 1 0RF
Insulin Glargine Lantus [Lantus] 22 UNITS
Subcutaneous Insulin Syringe [Syringe-Insulin] 0 UNIT
As Directed mls/hr SC HS
Ordered By: Josemanuel Dover MD
Last Taken: Unknown
Referrals:
Dylan Quinn DO [Family Provider] -
Activity Restrictions/Additional Instructions:
As discussed, you are being discharged back to [facility] for continual care.
Interventions
Interventions:
*Risk Screen - Suicide Last Done: 02/04/24 13:17
*General Assessment Last Done: 02/04/24 13:17
*Neglect/Abuse Screening Last Done: 02/04/24 13:17
*Nursing Disposition Last Done: 02/04/24 19:12
ED- Cardiac Assessment Last Done: 02/04/24 15:27
ED- Pulmonary Assessment Last Done: 02/04/24 15:27
Discharge Date and Time
Print Language: JAPANESE
[2024-02-04 14:02] LABS: Blood Urea Nitrogen 15 mg/dl (7-17); Calcium 8.6 mg/dl (8.4-10.2); Carbon Dioxide 23 mmol/L (22-30); Chloride 103 mmol/L (98-107); Glucose 133 mg/dl (70-99); Sodium 139 mmol/L (135-145); eGFR > 60.00
[2024-02-04 14:06] LABS: NT-proBNP 118 pg/ml; Troponin I < 0.012 ng/ml
[2024-02-04] MEDS: KCL 20 MEQ PO (14:39)
[2024-02-04] MEDS: NSS 250 IV (14:40)
[2024-02-04 15:35] LABS: D-Dimer 0.67 ug/mlFEU (0.00-0.50)
[2024-02-04 16:29] VITALS: BP 109/68
== END 2024-02-04 19:30 ==
LOC: EMR 13:13
PROVIDERS: Student in an Organized Health Care Education/Training Program; EMERGENCY PHYSICIAN Emergency Medicine; FAMILY PHYSICIAN Student in an Organized Health Care Education/Training Program
DX: R55 Syncope and collapse (principal); R09.02 Hypoxemia; I69.328 Other speech and language deficits following cerebral infarction; I69.351 Hemiplegia and hemiparesis following cerebral infarction affecting right dominant side; E11.9 Type 2 diabetes mellitus without complications; Z99.81 Dependence on supplemental oxygen; Z87.01 Personal history of pneumonia (recurrent); Z79.82 Long term (current) use of aspirin; Z79.84 Long term (current) use of oral hypoglycemic drugs
CPT/HCPCS: 99284; 96360; 71046; 80048; 83880; 84484; 85025; 85379; 93005

== ENCOUNTER → 2024-02-17 10:14 | Outpatient (REF) | payer OTHER, SELFPAY ==
[2024-02-17 11:54] LABS: Glycohemoglobin (HgbA1c) 7.6 % (4.0-5.6)
== END ==
LOC: OLABN 10:14
PROVIDERS: ATTENDING PHYSICIAN Student in an Organized Health Care Education/Training Program
DX: E11.65 Type 2 diabetes mellitus with hyperglycemia (principal)
CPT/HCPCS: 36415; 83036

== ENCOUNTER → 2024-03-26 09:18 | Outpatient (REF) | payer OTHER, SELFPAY ==
[2024-03-26 10:21] LABS: ALT (SGPT) 12 U/L (0-35); AST (SGOT) 17 U/L (14-36); Albumin 3.5 g/dl (3.5-5.0); Alkaline Phosphatase 63 U/L (38-126); Blood Urea Nitrogen 16 mg/dl (7-17); Calcium 9.1 mg/dl (8.4-10.2); Carbon Dioxide 24 mmol/L (22-30); Chloride 106 mmol/L (98-107); Glucose 108 mg/dl (70-99); Magnesium 2.1 mg/dl (1.6-2.3); Potassium 4.1 mmol/L (3.5-5.1); Sodium 140 mmol/L (135-145); Total Bilirubin 0.3 mg/dl (0.2-1.3); Total Protein 5.7 g/dl (6.3-8.2); eGFR > 60.00
[2024-03-26 10:31] LABS: % Basophils 0.7 % (0-2); % Eosinophils 2.9 % (0-6); % Immature Granulocytes 0.4 % (0-0.5); % Lymphocytes 22.3 % (20.5-51.1); % Monocytes 7.4 % (1.7-9.3); % Neutrophils 66.1 % (42.2-75.2); Absolute Basophils 0.1 10^3/uL (0-0.2); Absolute Eosinophils 0.3 10^3/uL (0-0.7); Absolute Lymphocytes 2.1 10^3/uL (1.2-3.4); Absolute Monocytes 0.7 10^3/uL (0.1-0.6); Absolute Neutrophils 5.9 10^3/uL (1.4-6.5); Hematocrit 22.5 % (37.0-47.0); Hemoglobin 6.8 g/dL (12.0-16.0); Mean Corp Hgb Conc. 30.2 g/dL (33.0-37.0); Mean Corpuscular Hgb 21.8 pg (27.0-31.0); Mean Corpuscular Volume 72.1 fL (81.0-99.0); Nucleated Red Blood Cells % 0 %; Platelet Count 534 10^3/uL (130-400); Red Blood Cell Count 3.12 10^6/uL (4.20-5.40); Red Cell Dist. Width 16.2 % (11.5-14.5); White Blood Cell Count 8.8 10^3/uL (4.8-10.8)
[2024-03-26 13:25] LABS: Vitamin B12 247 pg/ml (239-931)
== END ==
LOC: OLABN 09:18
PROVIDERS: ATTENDING PHYSICIAN Student in an Organized Health Care Education/Training Program
DX: I10 Essential (primary) hypertension (principal); G47.10 Hypersomnia, unspecified; E53.8 Deficiency of other specified B group vitamins
CPT/HCPCS: 80053; 82607; 83735; 85025

== ENCOUNTER 2024-03-26 11:41 | Emergency (ER) | payer MEDICARE, SELFPAY ==
[2024-03-26] VITALS (15 sets, daily range): BP systolic 116–134; BP diastolic 58–82; BMI 28.8
[2024-03-26 12:25] LABS: ALT (SGPT) 13 U/L (0-35); AST (SGOT) 23 U/L (14-36); Alkaline Phosphatase 68 U/L (38-126); Blood Urea Nitrogen 15 mg/dl (7-17); Calcium 9.3 mg/dl (8.4-10.2); Carbon Dioxide 26 mmol/L (22-30); Chloride 105 mmol/L (98-107); Estimated Creatinine Clearance 86 ml/min; Glucose 98 mg/dl (70-99); Potassium 4.2 mmol/L (3.5-5.1); Sodium 139 mmol/L (135-145); Total Bilirubin 0.5 mg/dl (0.2-1.3); Total Protein 6.3 g/dl (6.3-8.2); eGFR > 60.00
[2024-03-26 12:41] LABS: Troponin I < 0.012 ng/ml
--- NOTE | 2024-03-26 12:49 | ED.GENMED ---
History of Present Illness
General
Chief Complaint: Fainting/Passed Out
Time Seen by Provider: 03/26/24 12:03
History of Present Illness
History of Present Illness:
73-year-old female with history of hyperlipidemia, hypertension, diabetes, recent CVA with right-sided weakness presenting to the emergency department with concern of anemia. Patient had recent hospital admission for stroke with subsequent
right-sided upper and lower extremity weakness. She is currently in rehab for her weakness. She has been having physical therapy. Yesterday at physical therapy, at the end of her treatment she became diaphoretic and felt like she was going to
pass out. She had laboratory analysis checked and was called today that her hemoglobin was 6.8. She denies any history of blood transfusions in the past. She denies seeing any blood in her stool. She reports that she presently feels okay without
any chest pain or difficulty breathing. She denies any fever or recent illness. Patient's partner at bedside notes that few months ago she was having some episodes of coffee-ground emesis. Denies any present dizziness or lightheadedness. Denies
additional acute medical complaints.
Past History
Past History
ED Past Medical History: CVA () and NIDDM
Family History
Family History: Other (reviewed and non-contributory)
Phy Exam
Physical Exam
Physical Exam:
General: Well-appearing, no clinical signs of dehydration, nontoxic and in no acute distress
HEENT: protecting airway
Neck: appears supple
CV: Normal heart rate, regular rhythm, no evidence of cyanosis
Resp: No accessory muscle use, no increased work of breathing, lungs clear to auscultation bilaterally
Abd: Soft and non-distended, no tenderness to palpation, normal bowel sounds
Extremities: No deformities, no swelling, no erythema, pulses and sensation intact
Neuro: Paralysis of right upper extremity, no movement against gravity of the right lower extremity, reported as chronic
: deferred
Rectal: Hemoccult positive brown stool
Psych: Normal affect
Skin: Intact
Course
Orders/Labs/Results
Orders:
Orders
03/26/24 11:43
EKG [Electrocardiogram (*1)] Urgent
Reason for Study: Syncope
03/26/24 11:44
EKG- Treatment ONCE
03/26/24 11:56
Type+Screen Urgent
Comprehensive Metabolic Panel Urgent
Troponin I Urgent
03/26/24 12:40
Complete Blood Count/With Diff Routine
03/26/24 14:48
* Blood Bank Products Urgent
Blood Bank Products: *Packed RBC Leuko(PRBC's)
Quantity: 1
Transfuse Today: Yes
Reason: Anemia
Abnormal Lab Results
03/26/24 03/26/24
11:56 12:40
RBC 3.26 L 10^6/uL
(4.20-5.40)
Hgb 7.3 L g/dL
(12.0-16.0)
Hct 23.6 L %
(37.0-47.0)
MCV 72.4 L fL
(81.0-99.0)
MCH 22.4 L pg
(27.0-31.0)
MCHC 30.9 L g/dL
(33.0-37.0)
RDW 16.2 H %
(11.5-14.5)
Plt Count 514 H 10^3/uL
(130-400)
Absolute Monos (auto) 0.8 H 10^3/uL
(0.1-0.6)
Creatinine 0.5 L mg/dL
(0.6-1.0)
Crossmatch IS Only See Detail
03/26/24 12:40
03/26/24 11:56
Vital Signs
Initial and Last Documented VS:
Initial Vital Signs
Temp Pulse Resp BP Pulse Ox
98.3 F 76 19 118/82 95
03/26/24 11:45 03/26/24 11:45 03/26/24 11:45 03/26/24 11:45 03/26/24 11:45
Last Documented Vital Signs
Temp Pulse Resp BP Pulse Ox
98.3 F 88 21 118/58 92
03/26/24 11:45 03/26/24 15:00 03/26/24 15:00 03/26/24 15:00 03/26/24 15:00
MDM/Problems Addressed
MDM/Problems Addressed:
73-year-old female with history of recent CVA, hyperlipidemia, hypertension, diabetes presenting for near syncopal episode and concern of anemia. Vital signs on arrival are normal.
On physical exam, patient resting comfortably, no acute distress or discomfort. Concern for symptomatic anemia, patient reportedly had her hemoglobin checked today, 6.8. Notes that yesterday she became diaphoretic during physical therapy, felt
like she was going to pass out. Likely from volume depletion. Benign cardiac and pulmonary exam. However on rectal exam, Hemoccult positive brown stool. Concern for GI bleed. Patient however is hemodynamically stable. Will repeat laboratory
analysis to assess transfusion needs. EKG obtained, nonischemic without change from prior.
15:00 -patient hemoglobin is 7.3. Continue suspect component of symptomatic anemia. Extensive conversation had with patient and family at bedside, recommending transfusion and observation admission for GI consultation given Hemoccult positive and
near syncopal episode yesterday. Patient adamantly refusing transfusion and admission. Explained that patient's blood counts will likely continue to drop and symptoms will persist, or worsen, resulting in a syncopal episode or emergent need for
transfusion. After family had discussion with patient, patient would now like to proceed with transfusion, however again does not want to stay in the hospital. Will transfuse and observe with plan for discharge back to rehab facility with
outpatient GI follow-up. Family aware of plan. Patient consented
*EKG
Interpreted by ED Provider?: Yes
EKG Intrepretation Date: 03/26/24
EKG Intrepretation Time: 12:56
Interpretation: normal
Comparison EKG: no changes (02/04/24)
Heart Rate: 77
Rate: normal
[place]: normal axis
Interval: normal interval
QRS Pattern: right bundle branch block
Ischemia: no ischemia
*Critical Care Note
Total Time (30-74mins, 75-104mins- exclusive of procedures): Not Applicable
ED Attending Note
-
Portions of this chart may have been created with voice recognition software.� Occasional wrong word or��sound alike� substitutions may have occurred due to the inherent limitations of voice recognition software.
Discharge Plan
Departure
Prescriptions:
No Action
Lercan
10 mg PO DAILY
esomeprazole magnesium 40 mg Capsule,Delayed Release(Dr/Ec)
40 mg PO DAILY
sitagliptin phos-metformin 50-1,000 mg Tablet
1 tab PO BID
melatonin
1 gummy PO HSPRN PRN (Reason: sleep)
lisinopril 5 mg Tablet
5 mg PO DAILY Qty: 1 0RF
insulin aspart U-100 100 unit/mL (3 mL) Insulin Pen
8 unit SC AC Qty: 15 0RF
atorvastatin 20 mg Tablet
40 mg PO QPM Qty: 1 0RF
aspirin 81 mg Tablet,Delayed Release (Dr/Ec)
81 mg PO DAILY Qty: 1 0RF
Insulin Glargine Lantus [Lantus] 22 UNITS
Subcutaneous Insulin Syringe [Syringe-Insulin] 0 UNIT
As Directed mls/hr SC HS
Ordered By: Josemanuel Dover MD
Last Taken: Unknown
Referrals:
Bryan Beverly MD [Family Provider] -
Interventions
Interventions:
*Risk Screen - Suicide Last Done: 03/26/24 11:45
*General Assessment Last Done: 03/26/24 11:45
*Neglect/Abuse Screening Last Done: 03/26/24 11:45
ED- Fall Risk Assessment Last Done: 03/26/24 11:45
*ED COVID-19 Vaccine History Last Done: 03/26/24 11:45
ED- Cardiac Assessment Last Done: 03/26/24 11:45
ED- Neurological Assessment Last Done: 03/26/24 11:45
Discharge Date and Time
Print Language: [place]
[2024-03-26 12:55] LABS: % Basophils 0.7 % (0-2); % Eosinophils 3.4 % (0-6); % Immature Granulocytes 0.3 % (0-0.5); % Lymphocytes 23.5 % (20.5-51.1); % Monocytes 8.6 % (1.7-9.3); % Neutrophils 63.5 % (42.2-75.2); Absolute Basophils 0.1 10^3/uL (0-0.2); Absolute Eosinophils 0.3 10^3/uL (0-0.7); Absolute Lymphocytes 2.2 10^3/uL (1.2-3.4); Absolute Monocytes 0.8 10^3/uL (0.1-0.6); Absolute Neutrophils 5.9 10^3/uL (1.4-6.5); Hematocrit 23.6 % (37.0-47.0); Hemoglobin 7.3 g/dL (12.0-16.0); Mean Corp Hgb Conc. 30.9 g/dL (33.0-37.0); Mean Corpuscular Hgb 22.4 pg (27.0-31.0); Mean Corpuscular Volume 72.4 fL (81.0-99.0); Mean Platelet Volume 9.5 fL (7.4-10.4); Nucleated Red Blood Cells % 0 %; Platelet Count 514 10^3/uL (130-400); Red Blood Cell Count 3.26 10^6/uL (4.20-5.40); Red Cell Dist. Width 16.2 % (11.5-14.5); White Blood Cell Count 9.2 10^3/uL (4.8-10.8)
== END 2024-03-26 19:04 | disposition home or self-care (01) ==
LOC: EMR 11:41
PROVIDERS: EMERGENCY PHYSICIAN Student in an Organized Health Care Education/Training Program; FAMILY PHYSICIAN Family Medicine
DX: D64.9 Anemia, unspecified (principal); K92.2 Gastrointestinal hemorrhage, unspecified; E78.5 Hyperlipidemia, unspecified; I10 Essential (primary) hypertension; E11.9 Type 2 diabetes mellitus without complications
CPT/HCPCS: 99285; 36430; 80053; 84484; 85025; 86850; 86900; 86901; 86920; 93005; P9016

== ENCOUNTER → 2024-04-02 13:11 | Outpatient (REF) | payer OTHER, MEDICARE, SELFPAY ==
[2024-04-02 13:37] LABS: Hematocrit 25.6 % (37.0-47.0); Hemoglobin 8.2 g/dL (12.0-16.0); Mean Corpuscular Hgb 24.1 pg (27.0-31.0); Mean Corpuscular Volume 75.3 fL (81.0-99.0); Mean Platelet Volume 10.6 fL (7.4-10.4); Platelet Count 472 10^3/uL (130-400); Red Cell Dist. Width 17.9 % (11.5-14.5)
[2024-04-02 14:08] LABS: Blood Urea Nitrogen 11 mg/dl (7-17); Carbon Dioxide 25 mmol/L (22-30); Chloride 106 mmol/L (98-107); Glucose 113 mg/dl (70-99); Potassium 3.2 mmol/L (3.5-5.1); Sodium 138 mmol/L (135-145); eGFR > 60.00
== END ==
LOC: OLABN 13:11
PROVIDERS: ATTENDING PHYSICIAN Student in an Organized Health Care Education/Training Program
DX: D64.9 Anemia, unspecified (principal)
CPT/HCPCS: 36415; 80048; 85027

== ENCOUNTER 2024-04-04 23:04 | Inpatient (IN) | payer MEDICARE, SELFPAY ==
[2024-04-04 20:36] VITALS: BP 141/86
[2024-04-04] MEDS: ZOFRAN 4 MG IV (21:08)
[2024-04-04] MEDS: PROTONIX IV 40 MG IV (21:08)
[2024-04-04 21:10] LABS: % Basophils 0.2 % (0-2); % Eosinophils 0.7 % (0-6); % Immature Granulocytes 0.3 % (0-0.5); % Lymphocytes 9.4 % (20.5-51.1); % Monocytes 5.8 % (1.7-9.3); % Neutrophils 83.6 % (42.2-75.2); Absolute Eosinophils 0.1 10^3/uL (0-0.7); Absolute Immature Granulocytes 0.1 10^3/uL (0-0.05); Absolute Lymphocytes 1.5 10^3/uL (1.2-3.4); Absolute Monocytes 0.9 10^3/uL (0.1-0.6); Absolute Neutrophils 13.5 10^3/uL (1.4-6.5); Hematocrit 28.7 % (37.0-47.0); Mean Corp Hgb Conc. 31.4 g/dL (33.0-37.0); Mean Corpuscular Hgb 23.6 pg (27.0-31.0); Mean Corpuscular Volume 75.1 fL (81.0-99.0); Mean Platelet Volume 9.8 fL (7.4-10.4); Nucleated Red Blood Cells % 0 %; Platelet Count 554 10^3/uL (130-400); Red Blood Cell Count 3.82 10^6/uL (4.20-5.40); Red Cell Dist. Width 18.3 % (11.5-14.5); White Blood Cell Count 16.1 10^3/uL (4.8-10.8)
--- NOTE | 2024-04-04 21:18 | ED.GENMED ---
History of Present Illness
General
Chief Complaint: Vomiting Blood
Source: patient, records and family
Exam Limitations: none
Time Seen by Provider: 04/04/24 20:39
Nursing documentation reviewed up to this point in time: agreed with
History of Present Illness
History of Present Illness:
73-year-old female from [facility] presents with coffee-ground emesis started this afternoon seen in the ER recently with anemia recommended admission she preferred to go home was treated with a blood transfusion discharged home she is on
aspirin she had a stroke with right-sided weakness denies any NSAID use, no anticoagulant use apparently she is diabetic, never had an ulcer or an upper endoscopy by report patient also tells me she has had low back pain since she had her stroke
again not using any NSAIDs for the
Past History
Past History
ED Past Medical History: CVA () and NIDDM
Social History
Tobacco: Non-smoker
Alcohol: None
Drug: None
Personal:
Living: intermediate
Employment: Not employed
Family History
Family History: Other (reviewed and non-contributory)
Review of Systems
Review of Systems
All Other Systems: Not applicable
Constitutional: Reports fatigue; Denies fever
EENT: Reports no symptoms
Respiratory: Reports no symptoms
Cardiac: Denies chest pain
ABD/GI: Reports nausea and vomiting (Black material); Denies abdominal pain or diarrhea
: Reports no symptoms
Musculoskeletal: Reports back pain (Which she has had since the stroke)
Neurological: Reports dizzy and weakness
Phy Exam
Physical Exam
Physical Exam:
Physical Exam
General: Pale ill-appearing female
Neck: Dry black vomitus around her mouth and short
Heart: Tachycardic
Lungs: No wheezing
Abdomen: Nontender
Neuro: alert and oriented. Right-sided weakness
Skin: no rash
Psychiatric: cooperative
Extremities: no edema
Course
Orders/Labs/Results
Orders:
Orders
04/04/24 20:58
Cardiac Monitoring- Treatment ONCE
IV Insert/Care/Rem.- Treatment PRN
O2 Therapy [RESP] Urgent
Titrate/Wean O2 to maintain O2 sat greater than (%): 93
Special Instructions: MAINTAIN CONTINOUS O2 SATS > OR = 93%
Pulse Ox/spot Check [RESP] Urgent
Quantity: 1
Special Instructions: ON ROOM AIR
04/04/24 21:01
Ondansetron Injectable [Zofran] 4 mg .ROUTE .STK-MED ONE
Pantoprazole [Protonix IV] 40 mg .ROUTE .STK-MED ONE
04/04/24 21:06
Type+Screen Urgent
Complete Blood Count/With Diff Urgent
Comprehensive Metabolic Panel Urgent
PTT Urgent
Prothrombin Time Urgent
04/04/24 21:07
Ondansetron Injectable [Zofran] 4 mg IV NOW STA
04/04/24 21:08
Pantoprazole [Protonix IV] 40 mg IV NOW STA
04/04/24 21:10
0.9% Sodium Chloride 1000 ml [Nss] 1,000 ml IV BOLUS
04/04/24 21:11
Electrocardiogram (*1) Urgent
Reason for Study: Abdominal Pain
EKG- Treatment ONCE
CR Chest Portable - 1 View Urgent
Comment:
Reason For Exam: gi
Reason Study Needs to be Portable: Patient Unstable
04/04/24 21:15
Pantoprazole 80 mg/100 ml Nss [Protonix] 80 mg in 100 ml IV Q10H
Abnormal Lab Results
04/04/24
21:06
WBC 16.1 H 10^3/uL
(4.8-10.8)
RBC 3.82 L 10^6/uL
(4.20-5.40)
Hgb 9.0 L g/dL
(12.0-16.0)
Hct 28.7 L %
(37.0-47.0)
MCV 75.1 L fL
(81.0-99.0)
MCH 23.6 L pg
(27.0-31.0)
MCHC 31.4 L g/dL
(33.0-37.0)
RDW 18.3 H %
(11.5-14.5)
Plt Count 554 H 10^3/uL
(130-400)
Abs Immat Gran (auto) 0.1 H 10^3/uL
(0-0.05)
Absolute Neuts (auto) 13.5 H 10^3/uL
(1.4-6.5)
Absolute Monos (auto) 0.9 H 10^3/uL
(0.1-0.6)
Neutrophils % 83.6 H %
(42.2-75.2)
Lymphocytes % 9.4 L %
(20.5-51.1)
Creatinine 0.4 L mg/dL
(0.6-1.0)
Glucose 128 H mg/dl
(70-99)
Total Protein 6.1 L g/dl
(6.3-8.2)
04/04/24 21:06
04/04/24 21:06
Vital Signs
Initial and Last Documented VS:
Initial Vital Signs
Temp Pulse Resp BP Pulse Ox
97.9 F 104 20 141/86 92
04/04/24 20:36 04/04/24 20:36 04/04/24 20:36 04/04/24 20:36 04/04/24 20:36
Last Documented Vital Signs
Temp Pulse Resp BP Pulse Ox
97.9 F 104 20 135/89 93
04/04/24 20:36 04/04/24 21:42 04/04/24 21:42 04/04/24 21:42 04/04/24 21:42
MDM/Problems Addressed
Differential Diagnosis Includes:
Gastritis duodenitis anemia electrolyte abnormality
MDM/Problems Addressed:
Cough urinalysis
Chronic conditions affecting care: Neurological disorder
Acute Exacerbation and/or Progression of Chronic Illness: Neurological disorder
*Radiology
Radiology exam reviewed: preliminary read by ED provider
*Pulse Oximetry
Patient hypoxic: no
*EKG
Interpreted by ED Provider?: Yes
Interpretation: abnormal
Comparison EKG: no comparison EKG present
Heart Rate: 114
Rate: tachycardiac
Rhythm: sinus
Ischemia: non-specific ST changes
*Contracts Advisor Interpretation
Rate: tachycardiac
Interpretation: abnormal
Heart Rate: 115
Rhythm: sinus
*Critical Care Note
Total Time (30-74mins, 75-104mins- exclusive of procedures): 30
Update Note
Update Note:
Update labs are noted although she did get a unit of blood recently, will start on saline PPI Arnold keep n.p.o. chest x-ray positive consent for transfusion on the chart patient and sons updated she will stay in the hospital today
ED Attending Note
-
Portions of this chart may have been created with voice recognition software.� Occasional wrong word or��sound alike� substitutions may have occurred due to the inherent limitations of voice recognition software.
Discharge Plan
Departure
Patient Disposition: Admit
Date of Disposition: 04/04/24
Time of Disposition: 21:51
Admit to: IMU
Presentation/result/management discussed w/ accepting MD/DO: Hospitalist
Patient with high blood pressure during this ER visit?: No
Condition: Fair
Discharge Problem:
Coffee ground vomiting
Prescriptions:
No Action
melatonin 3 mg Tablet
3 mg PO HS Qty: 0
lisinopril 5 mg Tablet
5 mg PO DAILY Qty: 1 0RF
atorvastatin 20 mg Tablet
40 mg PO QPM Qty: 1 0RF
amantadine HCl 100 mg Tablet
100 mg PO DAILY
methocarbamol 500 mg Tablet
500 mg PO Q8H
metformin 500 mg Tablet
1,000 mg PO BID
acetaminophen [Tylenol] 325 mg Tablet
975 mg PO TID
acetaminophen [Tylenol] 325 mg Tablet
650 mg PO Q4HPRN PRN (Reason: MILD PAIN)
lidocaine 4 % Adhesive Patch,Medicated
1 patch TOPICAL DAILY
sucralfate [Carafate] 1 gram Tablet
1 g PO TID
dextromethorphan-guaifenesin [Tussin DM] 10-100 mg/5 mL Liquid
10 ml PO Q6HPRN PRN (Reason: COUGH)
ondansetron HCl [Zofran] 4 mg Tablet
4 mg PO Q6HPRN PRN (Reason: NAUSEA)
aspirin 81 mg Tablet,Delayed Release (Dr/Ec)
81 mg PO DAILY
tramadol 50 mg Tablet
50 mg PO Q6HPRN PRN (Reason: MODERATE PAIN)
magnesium hydroxide [Milk of Magnesia] 400 mg/5 mL Suspension
2,400 mg PO HSPRN PRN (Reason: CONSTIPATION)
amlodipine [Norvasc] 10 mg Tablet
10 mg PO DAILY
bisacodyl [Dulcolax (bisacodyl)] 10 mg Suppository
10 mg ID [id number] PRN (Reason: IF NO BM AFTR MOM)
pantoprazole [Protonix] 40 mg Tablet,Delayed Release (Dr/Ec)
40 mg PO DAILY
calcium carbonate [Tums] 200 mg calcium (500 mg) Tablet,Chewable
400 mg PO Q8HPRN PRN (Reason: GERD)
mirtazapine 15 mg Tablet
15 mg PO HS
Chloraseptic Lozenge
1 jeny MUCOUS MEMBRANE Q6HPRN PRN (Reason: DRY THROAT)
saxagliptin [Onglyza] 5 mg Tablet
5 mg PO DAILY
magnesium oxide 400 mg magnesium Tablet
400 mg PO TID
Referrals:
UNKNOWN - PT DOES,NOT KNOW [Family Provider] -
Discharge Date and Time
Print Language: [place]
[2024-04-04 21:22] LABS: INR 1.06; PT 13.6 Sec (11.4-14.6)
[2024-04-04 21:23] LABS: APTT 25.2 Sec (23.4-35.0)
[2024-04-04 21:31] LABS: ALT (SGPT) 14 U/L (0-35); AST (SGOT) 19 U/L (14-36); Albumin 3.7 g/dl (3.5-5.0); Alkaline Phosphatase 86 U/L (38-126); Blood Urea Nitrogen 17 mg/dl (7-17); Calcium 9.9 mg/dl (8.4-10.2); Carbon Dioxide 28 mmol/L (22-30); Chloride 101 mmol/L (98-107); Glucose 128 mg/dl (70-99); Sodium 138 mmol/L (135-145); Total Bilirubin 0.4 mg/dl (0.2-1.3); Total Protein 6.1 g/dl (6.3-8.2); eGFR > 60.00
[2024-04-04 21:42] VITALS: BP 135/89
[2024-04-04] MEDS: NSS 1000 IV (22:09)
[2024-04-04] MEDS: PROTONIX 100 IV (22:10)
[2024-04-04 22:21] VITALS: BP 117/73
--- NOTE | 2024-04-04 22:53 | HPS.HSE ---
Addendum entered and electronically signed by Isabella Chawla DO 04/04/24 23:32:
The patient is seen and examined, and I have reviewed the patient with Debby. I agree with her history and physical, assessment and plan of care as per below. Additions include that the patient has had low back pain since recent stroke, family is
pursuing work-up for low back pain (CT spine has been obtained OP per family), and we discussed OP f/u with ortho spine possibly. She takes daily aspirin, last dose yesterday
VSS/AF at this time, pt is hemodynamically stable
PE- CV RRR no m/r/g, Lung CTA b/l, Abd soft, nt/nd
#Likely Upper GI bleed, plan as per below
Original Note:
Family Physician
-
Family Physician: NOT KNOW UNKNOWN - PT DOES
Chief Complaint
-
Coffee-Ground Emesis
History of Present Illness
Patient is a 73 y/o female past medical history of stroke in December 2023 with residual right hemiparesis, hypertension, hyperlipidemia and diabetes mellitus who presents with coffee-ground emesis. Patient was seen here at [facility]
Emergency Department of March 26 for low hemoglobin. History revealed patient had experienced some coffee ground emesis, and she was found to have heme-positive stool. Patient did receive a blood transfusion, but refused admission to the hospital
at that time. Today patient had several episodes of coffee-ground emesis and she returned to the emergency department for evaluation. Patient is maintained on low dose aspirin following her stroke in November, but denies any anticoagulants or NSAIDs.
She denies prior history of peptic ulcer disease. She reports prior endoscopy (unclear if upper or lower) about 30 years ago.
Medical History
Past Medical History
Past Medical History: Reports Other
Additional Past Medical History:
Ischemic Stroke with residual Right Hemiparesis
Essential Hypertension
Hyperlipidemia
Diabetes Mellitus, Type II
Depression
Past Surgical History: Reports None
Social History
Tobacco: Non-smoker
Living: Residential
Family History
Family History: Not pertinent
Allergies / Home Medications
Allergies reflects when Allergies were last updated in [employer].
Home Medications with original date entered in [employer]
Allergy/Medication List:
Allergies
Allergy/AdvReac Type Severity Reaction Status Date / Time
cortisone Allergy Unknown Verified 04/04/24 20:34
Home Medications
melatonin 3 mg tablet 3 mg PO HS ##0 12/14/23
atorvastatin 20 mg tablet 40 mg (2 x 20 mg) PO QPM #1 tab 12/17/23
lisinopril 5 mg tablet 5 mg PO DAILY #1 tab 12/17/23
acetaminophen 325 mg tablet (Tylenol) 650 mg PO Q4HPRN PRN MILD PAIN/FEVER 03/26/24
acetaminophen 325 mg tablet (Tylenol) 975 mg PO TID 03/26/24
amantadine HCl 100 mg tablet 100 mg PO DAILY 03/26/24
amlodipine 10 mg tablet (Norvasc) 10 mg PO DAILY 03/26/24
aspirin 81 mg tablet,delayed release 81 mg PO DAILY 03/26/24
bisacodyl 10 mg rectal suppository (Dulcolax (bisacodyl)) 10 mg WA [id number] PRN IF NO BM AFTR MOM 03/26/24
calcium carbonate (Tums) 400 mg PO Q8HPRN PRN GERD 03/26/24
dextromethorphan-guaifenesin 10 mg-100 mg/5 mL oral liquid (Tussin DM) 10 ml PO Q6HPRN PRN COUGH 03/26/24
lidocaine 4 % topical patch 1 patch topical DAILY RIGHT SHOULDER 03/26/24
magnesium hydroxide 400 mg/5 mL oral suspension (Milk of Magnesia) 2,400 mg PO HSPRN PRN CONSTIPATION 03/26/24
magnesium oxide 400 mg PO TID 03/26/24
metformin 500 mg tablet 1,000 mg PO BID 03/26/24
methocarbamol 500 mg tablet 500 mg PO Q8H 03/26/24
mirtazapine 15 mg tablet 15 mg PO HS 03/26/24
ondansetron HCl 4 mg tablet 4 mg PO Q6HPRN PRN NAUSEA 03/26/24
pantoprazole 40 mg tablet,delayed release (Protonix) 40 mg PO DAILY 03/26/24
phenol-phenolate sodium lozenges 1 jeny mucous membrane Q6HPRN PRN DRY THROAT 03/26/24
saxagliptin 5 mg tablet (Onglyza) 5 mg PO DAILY 03/26/24
sucralfate 1 gram tablet (Carafate) 1 g PO TID 03/26/24
tramadol 50 mg tablet 50 mg PO Q6HPRN PRN MODERATE PAIN 03/26/24
ascorbic acid (vitamin C) 500 mg tablet (Vitamin C) 500 mg PO BID 04/04/24
ferrous sulfate 325 mg (65 mg iron) tablet 325 mg PO BID 04/04/24
lidocaine 4 % topical patch 1 patch topical DAILY 04/04/24
Review of Systems
-
A 12 point ROS was completed and negative except as noted: Yes
Constitutional: Denies Fever or Chills
Respiratory: Denies Cough or Trouble Breathing
Cardiac: Denies Chest Pain or Palpitations
Abdomen/GI: Denies Abdominal Pain
Physical Exam
Vital Signs
Vital Signs
Temp Pulse Resp BP Pulse Ox
97.9 F 98 20 117/73 94
04/04/24 20:36 04/04/24 22:21 04/04/24 22:21 04/04/24 22:21 04/04/24 22:21
Physical Exam
General: Comfortable, Conversant and Other (Appears quite pale)
HEENT: Anicteric and Moist mucous membranes
Respiratory: Clear and Non Labored Respirations
Cardiac: S1/S2 and Regular Rhythm
GI: Soft, Non Tender and Non Distended
Musculoskeletal: No Clubbing, No Cyanosis, No Edema and Other (Right Upper Ext in Sling)
Skin: Warm and Dry
Neuro: Awake, Alert and Other (Chronic Right Hemiparesis)
Psych: Calm
Laboratory Results
-
04/04/24 21:06
04/04/24 21:06
Laboratory Results
PT 13.6 Sec (11.4-14.6) 04/04/24 21:06
INR 1.06 04/04/24 21:06
APTT 25.2 Sec (23.4-35.0) 04/04/24 21:06
Total Bilirubin 0.4 mg/dl (0.2-1.3) 04/04/24 21:06
AST 19 U/L (14-36) 04/04/24 21:06
ALT 14 U/L (0-35) 04/04/24 21:06
Alkaline Phosphatase 86 U/L (38-126) 04/04/24 21:06
Data Reviewed
-
Lab Data: Labs Reviewed by me
Old Records: Reviewed
Impression/Plan
-
GI Bleed, likely upper in nature
-Consult GI
-Continue Protonix Drip
-Allow clears then NPO after midnight for possible EGD in AM
-Hold aspirin
Acute Blood Loss Anemia
-Blood consent obtained in ED and scanned into chart
-Continue to trend hemoglobin
-Transfuse for Hgb less than 7
Ischemia Stroke with residual Right Hemiparesis
-Hold aspirin
-Continue amantadine and methocarbamol
Essential Hypertension
-Continue amlodipine and lisinopril with hold parameters
Hyperlipidemia
-Continue atorvastatin
Diabetes Mellitus, Type II
-Hold oral meds
-Monitor sugars and continue coverage insulin
Depression
-Continue mirtazapine
DVT proph: SCDs
Code Status: DNR
[2024-04-05] VITALS (7 sets, daily range): BP systolic 115–134; BP diastolic 64–75; BMI 27.6; BMI 27.5
[2024-04-05 00:22] LABS: Ferritin 6.8 ng/ml (11.1-264.0)
[2024-04-05 00:43] LABS: Glucose - Point of Care 118 mg/dl (70-99)
[2024-04-05] MEDS: ROBITUSSIN 100 MG PO (00:51)
[2024-04-05 00:54] LABS: Folate 16.7 ng/ml (2.76-20); Vitamin B12 285 pg/ml (239-931)
[2024-04-05 01:15] LABS: Iron 173 ug/dl (37-170)
[2024-04-05 01:24] LABS: Percent Saturation 45 % (20-50); Total Iron Binding Capacity 378 ug/dl (265-497)
[2024-04-05] MEDS: NSS 1000 IV ×2 (02:20→16:25)
[2024-04-05 04:18] LABS: Hematocrit 24.6 % (37.0-47.0); Hemoglobin 7.7 g/dL (12.0-16.0); Mean Corp Hgb Conc. 31.3 g/dL (33.0-37.0); Mean Corpuscular Hgb 23.4 pg (27.0-31.0); Mean Corpuscular Volume 74.8 fL (81.0-99.0); Mean Platelet Volume 9.7 fL (7.4-10.4); Platelet Count 461 10^3/uL (130-400); Red Blood Cell Count 3.29 10^6/uL (4.20-5.40); Red Cell Dist. Width 18.3 % (11.5-14.5); White Blood Cell Count 11.1 10^3/uL (4.8-10.8)
[2024-04-05 04:46] LABS: Blood Urea Nitrogen 16 mg/dl (7-17); Carbon Dioxide 30 mmol/L (22-30); Chloride 104 mmol/L (98-107); Estimated Creatinine Clearance 84 ml/min; Glucose 101 mg/dl (70-99); Potassium 4.2 mmol/L (3.5-5.1); Sodium 139 mmol/L (135-145); eGFR > 60.00
[2024-04-05 07:34] LABS: Hematocrit 27.3 % (37.0-47.0); Hemoglobin 8.7 g/dL (12.0-16.0)
[2024-04-05] MEDS: LIDOCAINE 4% PATCH 1 PATCH TOPICAL ×2 (08:04→08:05)
[2024-04-05] MEDS: NORVASC 10 MG PO (08:05)
[2024-04-05] MEDS: ZESTRIL 5 MG PO (08:05)
[2024-04-05] MEDS: SYMMETREL 100 MG PO (08:05)
[2024-04-05 08:12] LABS: Glucose - Point of Care 119 mg/dl (70-99)
--- NOTE | 2024-04-05 08:17 | CON.GI ---
Addendum entered and electronically signed by Manasa Sage MD 04/05/24 15:59:
I saw and examined the patient.
The STOVE FITTER or PA's note was reviewed and I agree with the note.
Comment: This is a 73-year-old female past medical history of stroke in December 2023 only on aspirin 81, other medical history as below presenting with anemia and coffee-ground emesis. She states she has had episodes of coffee-ground about 3 times.
She also has some alternating diarrhea and constipation which is her baseline. She does not even remember when her last bowel movement was. She does not know the color of her stool as she typically has her bowel movement in her diaper. She also
has chronic lower abdominal pain. Her is at the bedside with her.
Genet has seen the patient and ordered a obstructive series which showed some dilated loops of bowel. Her hemoglobin was as low as 7.7 yesterday although on repeat it went up to 8.7 without any blood products. Iron studies show ferritin of 6.8,
iron 173.
With the dilated loops of bowel and constipation and lower abdominal pain, I have low suspicion but will get a CT scan to ensure no obstruction. Sometimes this can cause a coffee-ground emesis picture as well. Pending CT scan, we will plan for
endoscopy most likely tomorrow. Risk, alternatives, benefits of endoscopy discussed with patient and at the bedside. Risks including but not limited to bleeding, infection, perforation. In the interim, she is currently on a Protonix drip
which she will continue, clear liquid diet and n.p.o. after midnight. If the endoscopy is negative, with her iron deficiency anemia she most likely would benefit from a colonoscopy.
Original Note:
Consultation
-
Date/Time Consultation Requested: 04/04/24 @ 23:45
Date/Time Consultation Performed: 04/05/24 @ 08:30
Requesting Provider: Debby Ibarra PA-C
Performing Provider: JOSEFINA Maharaj; Dr. Elana Sage
Reason for Consultation: GI Bleed
Medical History
Chief Complaint / HPI
Chief Complaint: coffee-ground emesis
History of Present Illness:
The patient is a 73-year-old female originally from [facility], with a past medical history significant for recent CVA in December 2023 with right-sided hemiparesis on aspirin, hypertension, hyperlipidemia, type 2 diabetes, depression, who presented to the
emergency room with complaints of coffee-ground emesis. We are being asked to evaluate for possible upper GI bleed. Upon review of prior records, the patient had been admitted here to [facility] in November where she was diagnosed with a
stroke, with MRI confirming a 3 cm nonhemorrhagic subacute infarct to the posterior aspect of the lentiform nucleus, posterior limb of the internal capsule, posterior body of the caudate and tail of the caudate on the left. She was deemed to not be
a tPA candidate at that time and was placed on aspirin. She was also found to have severely uncontrolled diabetes and was evaluated by the nurses educator for initiation of insulin. She was seen in the ER on 03/26 after having a near syncopal
episode at her nursing facility doing physical therapy. She had outpatient blood work done that showed a hemoglobin of 6.8 and she was sent to the emergency room for further evaluation. It was reported at that time she had been having some
intermittent episodes of coffee-ground emesis. Her stool was brown but heme positive. The patient ultimately declined admission to the hospital. Her hemoglobin was 7.3. She did agree to a blood transfusion and was discharged back to her rehab
facility from there. Today she reports she has been having intermittent episodes of vomiting with coffee-ground emesis over the past few months. She does admit to a reduced appetite and some weight loss although is not able to quantify how much.
She notes intermittent nausea that comes and goes sometimes without vomiting. She denies any other signs of bleeding such as melena or hematochezia. She denies any chest pain, shortness of breath, lightheadedness, dizziness, fevers, or chills.
She does have some intermittent gas pains in the lower abdomen but notes she has been more constipated intermittently given she has not been eating as much and therefore is not moving her bowels as frequently. She denies any dysphagia or
odynophagia. She denies any history of peptic ulcer disease. She denies use of NSAIDs or blood thinners aside from 81 mg of aspirin. She has never had an EGD. She notes having a colonoscopy about 30 years ago, but did not have polyps removed at
that time. She denies any family history of colon cancer or other GI cancers or disorders.
Routine labs in the ER showed a WBC 16.1, hemoglobin 9.0, MCV 75.1, platelets 554,000, INR 1.06, sodium 138, potassium 4.0, BUN 17, creatinine 0.4, serum iron 173, TIBC 378, iron saturation 45, ferritin 6.8, total bilirubin 0.4, AST 19, ALT 14, alk
phos 86, vitamin B12 285, folate 16.7. She was made n.p.o., placed on PPI gtt, and admitted for further evaluation by GI
Past Medical History
Past Medical History: CVA (Right-sided hemiparesis), HTN, Hypercholesterolemia, IDDM and Psychiatric (Depression)
Past Surgical History: None
Social History
Tobacco: Non-Smoker
Alcohol: None
Drug: None
Personal: Partner
Living: [facility] (Short-term rehab)
Family History
Family History: Reviewed & Not Pertinent
Allergies / Home Medications
Allergy/AdvReac Type Severity Reaction Status Date / Time
cortisone Allergy Unknown Verified 04/04/24 20:34
�Medication �Instructions �Recorded
melatonin 3 mg tablet 3 mg PO HS Sleep ##0 12/14/23
atorvastatin 20 mg tablet 40 mg (2 x 20 mg) PO QPM #1 tab 12/17/23
lisinopril 5 mg tablet 5 mg PO DAILY #1 tab 12/17/23
acetaminophen 325 mg tablet 650 mg PO Q4HPRN PRN MILD 03/26/24
(Tylenol) PAIN/FEVER
acetaminophen 325 mg tablet 975 mg PO TID Pain 03/26/24
(Tylenol)
amantadine HCl 100 mg tablet 100 mg PO DAILY Mental 03/26/24
Health/Anxiety
amlodipine 10 mg tablet (Norvasc) 10 mg PO DAILY Blood Pressure 03/26/24
aspirin 81 mg tablet,delayed 81 mg PO DAILY Blood Clot 03/26/24
release Prevention/Tx
bisacodyl 10 mg rectal suppository 10 mg AL [id number] PRN IF NO BM AFTR 03/26/24
(Dulcolax (bisacodyl)) MOM
calcium carbonate (Tums) 400 mg PO Q8HPRN PRN GERD 03/26/24
dextromethorphan-guaifenesin 10 10 ml PO Q6HPRN PRN COUGH 03/26/24
mg-100 mg/5 mL oral liquid (Tussin
DM)
lidocaine 4 % topical patch 1 patch topical DAILY RIGHT 03/26/24
SHOULDER
magnesium hydroxide 400 mg/5 mL 2,400 mg PO HSPRN PRN CONSTIPATION 03/26/24
oral suspension (Milk of Magnesia)
magnesium oxide 400 mg PO TID Electrolyte Repletion 03/26/24
metformin 500 mg tablet 1,000 mg PO BID Diabetes 03/26/24
methocarbamol 500 mg tablet 500 mg PO Q8H Muscle Spasms 03/26/24
mirtazapine 15 mg tablet 15 mg PO HS Mental Health/Anxiety 03/26/24
ondansetron HCl 4 mg tablet 4 mg PO Q6HPRN PRN NAUSEA 03/26/24
pantoprazole 40 mg tablet,delayed 40 mg PO DAILY Gastrointestinal 03/26/24
release (Protonix) Issue
phenol-phenolate sodium lozenges 1 jeny mucous membrane Q6HPRN PRN 03/26/24
DRY THROAT
saxagliptin 5 mg tablet (Onglyza) 5 mg PO DAILY Diabetes 03/26/24
sucralfate 1 gram tablet (Carafate) 1 g PO TID Gastrointestinal Issue 03/26/24
tramadol 50 mg tablet 50 mg PO Q6HPRN PRN MODERATE PAIN 03/26/24
ascorbic acid (vitamin C) 500 mg 500 mg PO BID Supplement 04/04/24
tablet (Vitamin C)
ferrous sulfate 325 mg (65 mg 325 mg PO BID Supplement 04/04/24
iron) tablet
lidocaine 4 % topical patch 1 patch topical DAILY Pain 04/04/24
Review of Systems
-
History Source: Patient
Constitutional: Reports Weight Loss
EENT: Reports No Symptoms
Respiratory: Reports No Symptoms
Cardiac: Reports Other (near syncope )
Abdomen/GI: Reports Nausea, Vomiting and Other (coffee ground emesis)
: Reports No Symptoms
Musculoskeletal: Reports Other (right sided paralysis/weakness)
Skin: Reports No Symptoms
Neurological: Reports No Symptoms
Endocrine: Reports No Symptoms
Vital Signs
Temp Pulse Resp BP Pulse Ox
98.4 F 82 18 134/73 96
04/05/24 07:00 04/05/24 07:00 04/05/24 07:00 04/05/24 07:00 04/05/24 07:00
Physical Exam
Exam
General: No Apparent Distress, Comfortable and Other (elderly, pale appearing female)
HEENT: Normocephalic, Anicteric and Atraumatic
Respiratory: Clear
Cardiac: S1/S2 and Regular Rhythm
Breast: Deferred by me
GI: Soft, Non Tender, Non Distended and Normal Bowel Sounds
Rectal: Deferred by Provider and Other (Brown Heme + per ER)
Musculoskeletal: No Edema
Skin: Warm and Dry
Neuro: Awake, Alert, Oriented and Other (right sided hemiparesis)
Psych: Calm
Results
WBC 11.1 10^3/uL (4.8-10.8) H 04/05/24 03:49
Hgb 8.7 g/dL (12.0-16.0) L 04/05/24 07:06
Hct 27.3 % (37.0-47.0) L 04/05/24 07:06
MCV 74.8 fL (81.0-99.0) L 04/05/24 03:49
Plt Count 461 10^3/uL (130-400) H 04/05/24 03:49
Absolute Neuts (auto) 13.5 10^3/uL (1.4-6.5) H 04/04/24 21:06
PT 13.6 Sec (11.4-14.6) 04/04/24 21:06
INR 1.06 04/04/24 21:06
APTT 25.2 Sec (23.4-35.0) 04/04/24 21:06
Sodium 139 mmol/L (135-145) 04/05/24 03:49
Potassium 4.2 mmol/L (3.5-5.1) 04/05/24 03:49
Chloride 104 mmol/L (98-107) 04/05/24 03:49
Carbon Dioxide 30 mmol/L (22-30) 04/05/24 03:49
BUN 16 mg/dl (7-17) 04/05/24 03:49
Creatinine 0.4 mg/dL (0.6-1.0) L 04/05/24 03:49
Calcium 9.0 mg/dl (8.4-10.2) 04/05/24 03:49
Total Bilirubin 0.4 mg/dl (0.2-1.3) 04/04/24 21:06
AST 19 U/L (14-36) 04/04/24 21:06
ALT 14 U/L (0-35) 04/04/24 21:06
Alkaline Phosphatase 86 U/L (38-126) 04/04/24 21:06
Diagnostic Image Results:
04/04/24 CXR: IMPRESSION: Pulmonary vascularity at least top normal.
Prior GI Procedures:
EGD: none
Colonoscopy: 30 years ago, no polyps per pt
Assessment / Plan
-
The patient is a 73-year-old female with a past medical history significant for recent CVA in December 2023 with right-sided hemiparesis on aspirin, hypertension, hyperlipidemia, type 2 diabetes, depression, who presented to the emergency room with
complaints of coffee-ground emesis, found to have acute on chronic microcytic anemia with a hemoglobin of 9.0 dropped to 7.7. Her anemia appears new since December but no baseline prior to this. She has had intermittent symptoms over the past several
months, with no prior w/u. She denies NSAID use or use of blood thinners. She has had loss of appetite and weight loss (she cannot quantify). She has never had an EGD in the past.
Problem list:
-coffee ground emesis
-acute on chronic microcytic anemia
-heme + brown stool
-loss of appetite/weight loss
-recent CVA December 2023 on aspirin with right hemiparesis
-DM2 on insulin, hgb A1c 7.6
-constipation
Other pertinent medical hx:
-HTN
-HLD
-depression
Recommendations:
-Etiology of coffee ground emesis possibly 2/2 UGI bleed (PUD v AVM) v erosive gastritis v gastroparesis v constipation v other
-It seems her symptoms are intermittent although her anemia is new as of December this year. Her last colonoscopy was 30 years ago. She has never had an EGD. She also had a elevated hgb A1c 12 now 7.6 in January. Iron studies are mixed with low ferritin but
high/normal serum iron and iron sat.
-Plan for EGD tomorrow for further evaluation
-Continue PPI gtt for now
-OK for CLD today (no reds)
-Will check an obstruction series given her reported constipation and intermittent lower abdominal pain. Given her recent stroke she may be constipation contributing to some of her nausea/vomiting.
-Trend H/H and transfuse to keep hgb >7
-Check hgb A1c, gastroparesis could also be a consideration
-Large bore IV's
-OK for aspirin 81mg daily from GI standpoint with recent CVA but would avoid other NSAID's
-Consider eventual colonoscopy if EGD is unrevealing given her anemia.
-Further management pending clinical course
-
-
Thank you for consultation and allowing me to participate in the patient's care. Please call the carton waxing machine operator GI physician during the after hours with any questions or concerns.
[2024-04-05] MEDS: NOVOLOG FLEXPEN-MODERATE RESISTANCE SC ×2 (10:55→18:43)
[2024-04-05] MEDS: PROTONIX 100 IV ×2 (10:55→21:17)
[2024-04-05 12:16] LABS: Glucose - Point of Care 207 mg/dl (70-99)
[2024-04-05] MEDS: NOVOLOG FLEXPEN-MODERATE RESISTANCE 3 UNITS SC (12:19)
--- NOTE | 2024-04-05 13:01 | W.PN.HOSP.TC ---
Today's Communication/Plan
-
Resume aspirin
Monitor hemoglobin
N.p.o. after midnight
Assessment / Plan
Assessment / Plan
Gen-AAOx3, NAD
HEENT-NC, AT, anicteric, clear oral mm
Neck-supple
CV-reg, no M, +S1/S2
Lungs-clear B/L
Abd-soft, NT, ND
Ext-no edema
Musculoskeletal-no cyanosis, clubbing
Skin-warm and dry
Neuro-grossly non-focal
Psych-calm, cooperative
Subacute GI bleed -upper versus lower etiology. Hemodynamically stable. Monitor hemoglobin. Plan for EGD tomorrow as per gastroenterology. Clear liquid diet today, n.p.o. after midnight.
Significant other at the bedside, he mentioned that he did see melena last week.
Acute blood loss anemia -due to GI bleed. Hemoglobin relatively stable, 8.7 today. Last transfused on March 26 for hemoglobin of 7.3.
History of stroke with right hemiparesis -resume aspirin.
Essential hypertension -stable.
Hyperlipidemia -on atorvastatin.
DM2 with hyperglycemia -check hemoglobin A1c. She is on saxagliptin, metformin at home. Hold oral agents. Currently on aspart moderate resistance scale.
Depression
DNR
Anticipated Discharge: 24 - 48 hours
Subjective/Interval History
-
Date of Service: April 05, 2024
Patient seen and examined. Complaining of feeling hungry.
Objective Data
-
Labs:
Laboratory Results
04/05/24 04/05/24 04/05/24
03:49 03:49 03:49
WBC 11.1 H
Hgb Cancelled 7.7 L
Hct Cancelled 24.6 L
Plt Count 461 H
Sodium 139
Potassium 4.2
Chloride 104
Carbon Dioxide 30
BUN 16
Creatinine 0.4 L
Glucose 101 H
Calcium 9.0
04/05/24
07:06
WBC
Hgb 8.7 L
Hct 27.3 L
Plt Count
Sodium
Potassium
Chloride
Carbon Dioxide
BUN
Creatinine
Glucose
Calcium
Vital Signs:
Vital Signs
Temp Pulse Resp BP Pulse Ox
97.7 F 94 18 128/64 95
04/05/24 11:00 04/05/24 11:00 04/05/24 11:00 04/05/24 11:00 04/05/24 11:00
Review of Systems
-
History Source: Patient
All other systems: Reviewed and negative
[2024-04-05] MEDS: ASPIR LOW (ENTERIC COATED) 81 MG PO (14:22)
--- NOTE | 2024-04-05 15:29 | CM ---
CM met with pt and SO/Felix
Pt typically resides with her SO of 32 years in a 2[facility] and is independent at baseline
Pt is a ST rehab resident at [facility] where she has been for the past few months
Pt is a bed-hold and plans to return on dc
Call with [facility]- accepted back for re-admission
Pt has no Part B plan for admissions but is well resourced financially
Return SNF referral sent via [facility]
Discharge Disposition- return to [facility] for ST rehab
[2024-04-05] MEDS: LIPITOR 40 MG PO (17:31)
[2024-04-05 18:18] LABS: Glucose - Point of Care 129 mg/dl (70-99)
[2024-04-05 21:41] LABS: Glucose - Point of Care 133 mg/dl (70-99)
[2024-04-05] MEDS: REMERON 15 MG PO (22:04)
[2024-04-05] MEDS: MELATONIN 3 MG PO (22:04)
[2024-04-06] VITALS (10 sets, daily range): BP systolic 124–152; BP diastolic 69–83; BMI 27.4
[2024-04-06] MEDS: NSS 1000 IV ×2 (04:59→21:36)
[2024-04-06] MEDS: OMNIPAQUE 50 ML PO (06:03)
[2024-04-06 06:17] LABS: Glucose - Point of Care 130 mg/dl (70-99)
[2024-04-06] MEDS: PROTONIX IV (06:21)
[2024-04-06 07:20] LABS: % Basophils 0.5 % (0-2); % Eosinophils 3.2 % (0-6); % Immature Granulocytes 0.5 % (0-0.5); % Lymphocytes 13.2 % (20.5-51.1); % Monocytes 6.9 % (1.7-9.3); % Neutrophils 75.7 % (42.2-75.2); Absolute Basophils 0.1 10^3/uL (0-0.2); Absolute Eosinophils 0.3 10^3/uL (0-0.7); Absolute Immature Granulocytes 0.1 10^3/uL (0-0.05); Absolute Lymphocytes 1.4 10^3/uL (1.2-3.4); Absolute Monocytes 0.7 10^3/uL (0.1-0.6); Absolute Neutrophils 8.2 10^3/uL (1.4-6.5); Hematocrit 24.9 % (37.0-47.0); Hemoglobin 8.1 g/dL (12.0-16.0); Mean Corp Hgb Conc. 32.5 g/dL (33.0-37.0); Mean Corpuscular Hgb 23.3 pg (27.0-31.0); Mean Corpuscular Volume 71.6 fL (81.0-99.0); Mean Platelet Volume 9.7 fL (7.4-10.4); Nucleated Red Blood Cells % 0 %; Platelet Count 509 10^3/uL (130-400); Red Blood Cell Count 3.48 10^6/uL (4.20-5.40); Red Cell Dist. Width 18.5 % (11.5-14.5); White Blood Cell Count 10.8 10^3/uL (4.8-10.8)
[2024-04-06] MEDS: ZESTRIL 5 MG PO (09:12)
[2024-04-06] MEDS: ASPIR LOW (ENTERIC COATED) 81 MG PO (09:12)
[2024-04-06] MEDS: VITAMIN B-12 1000 MCG PO (09:12)
[2024-04-06] MEDS: NORVASC 10 MG PO (09:12)
[2024-04-06] MEDS: PROTONIX 100 IV (09:12)
[2024-04-06] MEDS: LIDOCAINE 4% PATCH 1 PATCH TOPICAL ×2 (09:12)
[2024-04-06] MEDS: SYMMETREL PO (09:47)
[2024-04-06 12:01] LABS: Glucose - Point of Care 117 mg/dl (70-99)
--- NOTE | 2024-04-06 12:23 | W.PN.HOSP.TC ---
Today's Communication/Plan
-
Await EGD
Assessment / Plan
Assessment / Plan
Gen-AAOx3, NAD
HEENT-NC, AT, anicteric, clear oral mm
Neck-supple
CV-reg, no M, +S1/S2
Lungs-clear B/L
Abd-soft, NT, ND
Ext-no edema
Musculoskeletal-no cyanosis, clubbing
Skin-warm and dry
Neuro-grossly non-focal
Psych-calm, cooperative
Subacute GI bleed -upper versus lower etiology. Hemodynamically stable. Monitor hemoglobin. Await EGD today.
CT of abdomen/pelvis completed today, negative for obstruction. Air-fluid levels throughout the normal caliber small bowel loops noted suggesting either ileus or enteritis. Increased posterior bladder wall thickening also noted on CT. Will need
further evaluation when time permits. Uterine enlargement but likely related to fibroids.
Acute blood loss anemia -due to GI bleed. Last transfused on March 26 for hemoglobin of 7.3. Hemoglobin 9.0 on admission, 8.1 today. Monitor for now. She had a large green and soft bowel movement today.
Baseline chronic microcytic anemia noted. Ferritin low, 6.8. Serum iron elevated, percentage saturation 45. Low normal B12 noted. Folic acid normal. Oral B12 started.
History of stroke with right hemiparesis -continue aspirin.
Essential hypertension -stable.
Hyperlipidemia -on atorvastatin.
DM2 with hyperglycemia -hemoglobin A1c was 7.6% in January. She is on saxagliptin, metformin at home. Hold oral agents. Currently on aspart moderate resistance scale. Glucose 130 this morning.
Depression
DNR
Updated at the bedside.
Anticipated Discharge: Within 24 hours
Subjective/Interval History
-
Date of Service: April 06, 2024
Patient seen and examined. No complaints.
Objective Data
-
Labs:
Laboratory Results
04/06/24
06:29
WBC 10.8
Hgb 8.1 L
Hct 24.9 L
Plt Count 509 H
Vital Signs:
Vital Signs
Temp Pulse Resp BP Pulse Ox
98.4 F 84 17 144/78 97
04/06/24 07:00 04/06/24 07:00 04/06/24 07:00 04/06/24 07:00 04/06/24 07:00
I&O
04/05/24 04/06/24 04/07/24
06:59 06:59 06:59
Intake Total 480 / 480 180 / 180
Output Total 1150 / 1150 1450 / 1450
Balance -670 / -670 -1270 / -1270
Review of Systems
-
History Source: Patient
All other systems: Reviewed and negative
[2024-04-06 14:22] LABS: Glucose - Point of Care 116 mg/dl (70-99)
--- NOTE | 2024-04-06 15:20 | CM ---
CM reviewed chart and ADC tomorrow
IMM verbally completed with pt and SO
Copy provided
Discharge Disposition- return to [facility]/bed-hold
[2024-04-06] MEDS: TYLENOL 650 MG PO (16:21)
[2024-04-06] MEDS: GAVILAX 238 GM PO (17:32)
[2024-04-06] MEDS: LIPITOR 40 MG PO (17:32)
[2024-04-06 18:23] LABS: Glucose - Point of Care 139 mg/dl (70-99)
[2024-04-06 21:14] LABS: Glucose - Point of Care 137 mg/dl (70-99)
[2024-04-06] MEDS: PROTONIX 40 MG PO (21:45)
[2024-04-06] MEDS: MELATONIN 3 MG PO (21:45)
[2024-04-06] MEDS: REMERON 15 MG PO (21:45)
[2024-04-07] VITALS (9 sets, daily range): BP systolic 109–137; BP diastolic 63–74; BMI 26.7
[2024-04-07] MEDS: TYLENOL 650 MG PO (06:16)
[2024-04-07 06:20] LABS: Glucose - Point of Care 129 mg/dl (70-99)
[2024-04-07 07:28] LABS: % Basophils 0.5 % (0-2); % Eosinophils 3.5 % (0-6); % Immature Granulocytes 0.4 % (0-0.5); % Lymphocytes 14.1 % (20.5-51.1); % Monocytes 9.2 % (1.7-9.3); % Neutrophils 72.3 % (42.2-75.2); Absolute Basophils 0.1 10^3/uL (0-0.2); Absolute Eosinophils 0.3 10^3/uL (0-0.7); Absolute Lymphocytes 1.3 10^3/uL (1.2-3.4); Absolute Monocytes 0.9 10^3/uL (0.1-0.6); Absolute Neutrophils 6.8 10^3/uL (1.4-6.5); Hematocrit 26.9 % (37.0-47.0); Hemoglobin 8.7 g/dL (12.0-16.0); Mean Corp Hgb Conc. 32.3 g/dL (33.0-37.0); Mean Corpuscular Hgb 23.9 pg (27.0-31.0); Mean Corpuscular Volume 73.9 fL (81.0-99.0); Mean Platelet Volume 9.8 fL (7.4-10.4); Nucleated Red Blood Cells % 0 %; Platelet Count 510 10^3/uL (130-400); Red Blood Cell Count 3.64 10^6/uL (4.20-5.40); Red Cell Dist. Width 18.8 % (11.5-14.5); White Blood Cell Count 9.4 10^3/uL (4.8-10.8)
[2024-04-07] MEDS: LIDOCAINE 4% PATCH 1 PATCH TOPICAL ×2 (08:37→08:38)
[2024-04-07] MEDS: ZESTRIL 5 MG PO (08:38)
[2024-04-07] MEDS: VITAMIN B-12 1000 MCG PO (08:38)
[2024-04-07] MEDS: SYMMETREL 100 MG PO (08:38)
[2024-04-07] MEDS: PROTONIX 40 MG PO ×2 (08:38→21:05)
[2024-04-07] MEDS: ASPIR LOW (ENTERIC COATED) 81 MG PO (08:38)
[2024-04-07] MEDS: NORVASC 10 MG PO (08:39)
[2024-04-07] MEDS: NSS 1000 IV (09:57)
--- NOTE | 2024-04-07 11:17 | W.PN.HOSP.TC ---
Today's Communication/Plan
-
Await colonoscopy
Assessment / Plan
Assessment / Plan
Gen-AAOx3, NAD
HEENT-NC, AT, anicteric, clear oral mm
Neck-supple
CV-reg, no M, +S1/S2
Lungs-clear B/L
Abd-soft, NT, ND
Ext-no edema
Musculoskeletal-no cyanosis, clubbing
Skin-warm and dry
Neuro-grossly non-focal
Psych-calm, cooperative
Subacute GI bleed -upper versus lower etiology. Hemodynamically stable. Monitor hemoglobin. EGD done on 04/06 shows LA grade B esophagitis, 9 cm hiatal hernia, multiple gastric polyps. Awaiting colonoscopy today.
CT of abdomen/pelvis negative for obstruction. Air-fluid levels throughout the normal caliber small bowel loops noted suggesting either ileus or enteritis. Increased posterior bladder wall thickening also noted on CT. Will need further evaluation
when time permits. Uterine enlargement but likely related to fibroids.
Acute blood loss anemia -due to GI bleed. Last transfused on March 26 for hemoglobin of 7.3. Hemoglobin 9.0 on admission, 8.7 today. Monitor for now.
Baseline chronic microcytic anemia noted. Ferritin low, 6.8. Serum iron elevated, percentage saturation 45. Low normal B12 noted. Folic acid normal. Oral B12 started.
History of stroke with right hemiparesis -continue aspirin.
Essential hypertension -stable.
Hyperlipidemia -on atorvastatin.
DM2 with hyperglycemia -hemoglobin A1c was 7.6% in January. She is on saxagliptin, metformin at home. Hold oral agents. Currently on aspart moderate resistance scale. Glucose 129 this morning.
Depression
DNR
Updated at the bedside.
Anticipated Discharge: Within 24 hours
Subjective/Interval History
-
Date of Service: April 07, 2024
Patient seen and examined. Complaining of hunger.
Objective Data
-
Labs:
Laboratory Results
04/07/24
06:28
WBC 9.4
Hgb 8.7 L
Hct 26.9 L
Plt Count 510 H
Vital Signs:
Vital Signs
Temp Pulse Resp BP Pulse Ox
98.9 F 88 16 131/64 93
04/07/24 07:00 04/07/24 07:00 04/07/24 07:00 04/07/24 07:00 04/07/24 07:00
I&O
04/06/24 04/07/24 04/08/24
06:59 06:59 06:59
Intake Total 480 / 480 2220 / 2220
Output Total 1150 / 1150 2950 / 2950
Balance -670 / -670 -730 / -730
Review of Systems
-
History Source: Patient
All other systems: Reviewed and negative
[2024-04-07 12:52] LABS: Glucose - Point of Care 119 mg/dl (70-99)
--- NOTE | 2024-04-07 14:16 | CON.CRS ---
Consultation
-
Reason for Consultation: Rectal polyp
Medical History
-
Chief Complaint: Rectal polyp
History of Present Illness:
Patient is a 73-year-old hemiparetic (due to recent CVA) female who was admitted with anemia and coffee-ground emesis. Since admission the patient has been seen by gastroenterology due to concern for upper GI source. Lined up for EGD and
colonoscopy in sequence. Dr. Mcgarry performed both. EGD yesterday revealed LA grade B esophagitis, 9 cm hiatal hernia, multiple gastric polyps. Colonoscopy was just performed recently. There was a poor prep, however Dr. Mcgarry did see a 2-2.5
centimeter benign-appearing sessile distal rectal polyp. This was apparently in the distal rectum and felt to be 3 to 5 cm from the anal verge. This was biopsied. Results are pending. She did call me into the room and I was able to get a bedside
digital rectal examination after the patient woke up. On GUIDO I felt soft possible polyp in the right posterior position. Given the patient's hemiparesis/poor mobility status and the fact that she is an inpatient, the question was whether a
transanal excision could be performed on this patient during this admission. It is also important to note that plain abdominal films showed some air-fluid levels and the patient had some vague abdominal complaints apparently. CT scan of the
abdomen and pelvis was performed yesterday which the images and report available for review. There is no evidence for obstruction or ileus. There are some air-fluid levels in the small bowel the small bowel is of normal caliber. There is no
evidence of inflammation. No evidence for intestinal or rectal mass. Patient's last colonoscopy was apparently 30 years ago. Results unknown.
Discussion with patient, she admits to both urinary and fecal incontinence. Denies rectal bleeding.
Past Medical History
Past Medical History: CVA (With resultant right hemiparesis), HTN, Hypercholesterolemia, IDDM and Other (Depression)
Past Surgical History: None
Social History
Tobacco: Non-Smoker
Alcohol: None
Living: Other (Rehab)
Employment: Retired
Family History
Family History: Unable to Obtain
Allergies / Home Medications
Allergy/AdvReac Type Severity Reaction Status Date / Time
cortisone Allergy Unknown Verified 04/04/24 20:34
�Medication �Instructions �Recorded �Confirmed �Type
melatonin 3 mg tablet 3 mg PO HS Sleep ##0 12/14/23 04/04/24 History
atorvastatin 20 mg tablet 40 mg (2 x 20 mg) PO QPM #1 tab 12/17/23 04/04/24 Rx
lisinopril 5 mg tablet 5 mg PO DAILY #1 tab 12/17/23 04/04/24 Rx
acetaminophen 325 mg tablet 650 mg PO Q4HPRN PRN MILD 03/26/24 04/04/24 History
(Tylenol) PAIN/FEVER
acetaminophen 325 mg tablet 975 mg PO TID Pain 03/26/24 04/04/24 History
(Tylenol)
amantadine HCl 100 mg tablet 100 mg PO DAILY Mental 03/26/24 04/04/24 History
Health/Anxiety
amlodipine 10 mg tablet (Norvasc) 10 mg PO DAILY Blood Pressure 03/26/24 04/04/24 History
aspirin 81 mg tablet,delayed 81 mg PO DAILY Blood Clot 03/26/24 04/04/24 History
release Prevention/Tx
bisacodyl 10 mg rectal suppository 10 mg AK [id number] PRN IF NO BM AFTR 03/26/24 04/04/24 History
(Dulcolax (bisacodyl)) MOM
calcium carbonate (Tums) 400 mg PO Q8HPRN PRN GERD 03/26/24 04/04/24 History
dextromethorphan-guaifenesin 10 10 ml PO Q6HPRN PRN COUGH 03/26/24 04/04/24 History
mg-100 mg/5 mL oral liquid (Tussin
DM)
lidocaine 4 % topical patch 1 patch topical DAILY RIGHT 03/26/24 04/04/24 History
SHOULDER
magnesium hydroxide 400 mg/5 mL 2,400 mg PO HSPRN PRN CONSTIPATION 03/26/24 04/04/24 History
oral suspension (Milk of Magnesia)
magnesium oxide 400 mg PO TID Electrolyte Repletion 03/26/24 04/04/24 History
metformin 500 mg tablet 1,000 mg PO BID Diabetes 03/26/24 04/04/24 History
methocarbamol 500 mg tablet 500 mg PO Q8H Muscle Spasms 03/26/24 04/04/24 History
mirtazapine 15 mg tablet 15 mg PO HS Mental Health/Anxiety 03/26/24 04/04/24 History
ondansetron HCl 4 mg tablet 4 mg PO Q6HPRN PRN NAUSEA 03/26/24 04/04/24 History
pantoprazole 40 mg tablet,delayed 40 mg PO DAILY Gastrointestinal 03/26/24 04/04/24 History
release (Protonix) Issue
phenol-phenolate sodium lozenges 1 jeny mucous membrane Q6HPRN PRN 03/26/24 04/04/24 History
DRY THROAT
saxagliptin 5 mg tablet (Onglyza) 5 mg PO DAILY Diabetes 03/26/24 04/04/24 History
sucralfate 1 gram tablet (Carafate) 1 g PO TID Gastrointestinal Issue 03/26/24 04/04/24 History
tramadol 50 mg tablet 50 mg PO Q6HPRN PRN MODERATE PAIN 03/26/24 04/04/24 History
ascorbic acid (vitamin C) 500 mg 500 mg PO BID Supplement 04/04/24 04/04/24 History
tablet (Vitamin C)
ferrous sulfate 325 mg (65 mg 325 mg PO BID Supplement 04/04/24 04/04/24 History
iron) tablet
lidocaine 4 % topical patch 1 patch topical DAILY Pain 04/04/24 04/04/24 History
Review of Systems
-
A 10 point review of systems was completed, and was negative except as per HPI.
Physical Exam
Vital Signs
Temp 98.4 F 04/07/24 14:04
Pulse 88 04/07/24 07:00
Resp Rate 14 04/07/24 14:06
Blood pressure 109/72 04/07/24 14:06
SaO2 93 04/07/24 14:06
04/06/24 04/07/24 04/08/24
06:59 06:59 06:59
Actual Weight 72.32 kg 70.562 kg
Body Mass Index (BMI) 26.7
Lab Results / Allergies
04/07/24 06:28
04/05/24 03:49
WBC 9.4 10^3/uL (4.8-10.8) 04/07/24 06:28
Hgb 8.7 g/dL (12.0-16.0) L 04/07/24 06:28
Hct 26.9 % (37.0-47.0) L 04/07/24 06:28
Plt Count 510 10^3/uL (130-400) H 04/07/24 06:28
Abs Immat Gran (auto) 0.0 10^3/uL (0-0.05) 04/07/24 06:28
Neutrophils % 72.3 % (42.2-75.2) 04/07/24 06:28
Allergy/AdvReac Type Severity Reaction Status Date / Time
cortisone Allergy Unknown Verified 04/04/24 20:34
Physical Exam
General: Other (Elderly female; appears older than her age)
HEENT: Normocephalic
Respiratory: Clear
Cardiac: Regular Rhythm
GI: Soft, Non Tender and Non Distended
Rectal: Other (Questionable palpable soft rectal polyp right posterior position. Distance from anorectal ring unclear.)
Neuro: Other (Right-sided weakness)
Psych: Calm
Data Reviewed
-
CT Scan: Image Personally Visualized and interpreted and Report Reviewed by me
Labs: Labs Reviewed by me
Total Time Spent with Patient (in minutes): 60 minutes for total evaluation
Assessment / Plan
-
73-year-old hemiparetic female with anemia and coffee-ground emesis potentially from multiple sources. She does have upper GI findings on EGD which may well be the source of the anemia. She also however appears to have a distal rectal polyp with a
benign appearance and feel. Biopsy result is pending. I agree with Dr. Mcgarry, given her relative immobility and the fact that she is not inpatient and already prepped, consideration can be given for transanal excision of this lesion. EMR by
Martin Singh will be an option, however he is off this week, and the distal location of it may make it challenging to remove endoscopically. After thinking through, I would recommend a trip to the OR tomorrow for this transanal excision of the rectal
polyp. Will have the flexible sigmoidoscope available to better evaluate. The pelvis discussed with the patient and her family at the bedside. Risks and benefits discussed. Risks discussed include but are not limited to bleeding, infection,
change in bowel control, worsening fecal incontinence, rectal stricture formation, recurrence of the polyp, rectovaginal fistula, inability to perform the procedure, and anesthetic risk. Alternatives touched on including not pursuing surgery but
considering EMR later date. The patient wishes to proceed proceed with the procedure as described.
Deferred tomorrow afternoon. All questions answered. She will be n.p.o. after midnight
[2024-04-07 14:19] LABS: Glucose - Point of Care 108 mg/dl (70-99)
[2024-04-07 16:44] LABS: Glucose - Point of Care 119 mg/dl (70-99)
[2024-04-07] MEDS: LIPITOR 40 MG PO (17:14)
[2024-04-07] MEDS: REMERON 15 MG PO (21:05)
[2024-04-07] MEDS: MELATONIN 3 MG PO (21:05)
[2024-04-07 21:14] LABS: Glucose - Point of Care 110 mg/dl (70-99)
[2024-04-08] VITALS (14 sets, daily range): BP systolic 109–147; BP diastolic 43–75; BMI 26.4
[2024-04-08 00:07] LABS: IgA 214 mg/dl (70-400)
[2024-04-08 05:49] LABS: Glucose - Point of Care 121 mg/dl (70-99)
--- NOTE | 2024-04-08 07:30 | CM ---
met with patient and at bedside.patient with gi bleed,hgb 8.7,egd showed esophagitis/hh,colonoscopy with lesion found in distal rectum ,for or today for possible transanal resection.cont b12/remeron.plan return to [facility] when stable
for dc.
[2024-04-08] MEDS: NORVASC PO (07:42)
[2024-04-08] MEDS: VITAMIN B-12 PO (07:42)
[2024-04-08] MEDS: SYMMETREL PO (07:42)
[2024-04-08] MEDS: ASPIR LOW (ENTERIC COATED) PO (07:42)
[2024-04-08] MEDS: PROTONIX PO (07:42)
[2024-04-08] MEDS: LIDOCAINE 4% PATCH 1 PATCH TOPICAL ×2 (07:43→07:44)
[2024-04-08] MEDS: ZESTRIL PO (07:43)
[2024-04-08 08:35] LABS: % Basophils 0.5 % (0-2); % Eosinophils 3.3 % (0-6); % Immature Granulocytes 0.3 % (0-0.5); % Lymphocytes 15.2 % (20.5-51.1); % Monocytes 7.7 % (1.7-9.3); Absolute Basophils 0.1 10^3/uL (0-0.2); Absolute Eosinophils 0.3 10^3/uL (0-0.7); Absolute Lymphocytes 1.4 10^3/uL (1.2-3.4); Absolute Monocytes 0.7 10^3/uL (0.1-0.6); Absolute Neutrophils 6.8 10^3/uL (1.4-6.5); Hematocrit 28.6 % (37.0-47.0); Hemoglobin 9.1 g/dL (12.0-16.0); Mean Corp Hgb Conc. 31.8 g/dL (33.0-37.0); Mean Corpuscular Hgb 23.1 pg (27.0-31.0); Mean Corpuscular Volume 72.6 fL (81.0-99.0); Mean Platelet Volume 9.9 fL (7.4-10.4); Nucleated Red Blood Cells % 0 %; Platelet Count 523 10^3/uL (130-400); Red Blood Cell Count 3.94 10^6/uL (4.20-5.40); Red Cell Dist. Width 18.3 % (11.5-14.5); White Blood Cell Count 9.4 10^3/uL (4.8-10.8)
--- NOTE | 2024-04-08 10:30 | W.PN.HOSP.TC ---
Today's Communication/Plan
-
Await OR today
Assessment / Plan
Assessment / Plan
Gen-AAOx3, NAD
HEENT-NC, AT, anicteric, clear oral mm
Neck-supple
CV-reg, no M, +S1/S2
Lungs-clear B/L
Abd-soft, NT, ND
Ext-no edema
Musculoskeletal-no cyanosis, clubbing
Skin-warm and dry
Neuro-grossly non-focal
Psych-calm, cooperative
Subacute GI bleed -upper versus lower etiology. Hemodynamically stable. Monitor hemoglobin. EGD done on 04/06 shows LA grade B esophagitis, 9 cm hiatal hernia, multiple gastric polyps. Colonoscopy completed on 04/07 showing a poor prep, stool
throughout the colon, polypoid lesion in the distal rectum which was biopsied, measuring 20 to 22 mm and villous appearing.
CT of abdomen/pelvis negative for obstruction. Air-fluid levels throughout the normal caliber small bowel loops noted suggesting either ileus or enteritis. Increased posterior bladder wall thickening also noted on CT. Will need further evaluation
when time permits. Uterine enlargement but likely related to fibroids.
Currently n.p.o. awaiting surgical resection of rectal polyp by colorectal surgery today.
Acute blood loss anemia -due to GI bleed. Last transfused on March 26 for hemoglobin of 7.3. Hemoglobin 9.0 on admission, 9.1 today. Monitor for now.
Baseline chronic microcytic anemia noted. Ferritin low, 6.8. Serum iron elevated, percentage saturation 45. Low normal B12 noted. Folic acid normal. Oral B12 started.
History of stroke with right hemiparesis -continue aspirin.
Essential hypertension -stable.
Hyperlipidemia -on atorvastatin.
DM2 with hyperglycemia -hemoglobin A1c was 7.6% in January. She is on saxagliptin, metformin at home. Hold oral agents. Currently on aspart moderate resistance scale. Glucose 121 this morning.
Depression
DNR
Anticipated Discharge: 24 - 48 hours
Subjective/Interval History
-
Date of Service: April 08, 2024
Patient seen and examined. No complaints.
Objective Data
-
Labs:
Laboratory Results
04/08/24
07:57
WBC 9.4
Hgb 9.1 L
Hct 28.6 L
Plt Count 523 H
Vital Signs:
Vital Signs
Temp Pulse Resp BP Pulse Ox
98.5 F 83 17 141/75 92
04/08/24 07:45 04/08/24 07:45 04/08/24 07:45 04/08/24 07:45 04/08/24 09:42
I&O
04/07/24 04/08/24 04/09/24
06:59 06:59 06:59
Intake Total 2220 / 2220 1080 / 1080
Output Total 2950 / 2950
Balance -730 / -730 1080 / 1080
Review of Systems
-
History Source: Patient
All other systems: Reviewed and negative
[2024-04-08 11:49] LABS: Glucose - Point of Care 114 mg/dl (70-99)
--- NOTE | 2024-04-08 12:38 | W.PN.GI.CBS2 ---
Addendum entered and electronically signed by Radha Mcgarry MD 04/08/24 12:41:
Will give IV iron during the hospital stay
Original Note:
Today's Communication / Plan
-
Recommendations:
-Coffee-ground emesis likely related to the esophagitis noted on upper endoscopy.
-Continue Protonix 40 mg twice a day for 2 weeks and then once a day thereafter
Elevate head of the bed to prevent acid reflux, avoid NSAIDs
-Distal rectal polyp noted on colonoscopy
For transanal excision today with Dr. Mcintosh in the OR
-Iron deficiency anemia
She will need outpatient capsule study after discharge
Follow-up with GI in 6 weeks
Assessment / Plan
-
The patient is a 73-year-old female with a past medical history significant for recent CVA in December 2023 with right-sided hemiparesis on aspirin, hypertension, hyperlipidemia, type 2 diabetes, depression, who presented to the emergency room with
complaints of coffee-ground emesis, found to have acute on chronic microcytic anemia with a hemoglobin of 9.0 dropped to 7.7. Her anemia appears new since December but no baseline prior to this. She has had intermittent symptoms over the past several
months, with no prior w/u. She denies NSAID use or use of blood thinners. She has had loss of appetite and weight loss (she cannot quantify). She has never had an EGD in the past.
Problem list:
-coffee ground emesis
-acute on chronic microcytic anemia
-heme + brown stool
-loss of appetite/weight loss
-recent CVA December 2023 on aspirin with right hemiparesis
-DM2 on insulin, hgb A1c 7.6
-constipation
Other pertinent medical hx:
-HTN
-HLD
-depression
Recommendations:
-Coffee-ground emesis likely related to the esophagitis noted on upper endoscopy.
-Continue Protonix 40 mg twice a day for 2 weeks and then once a day thereafter
Elevate head of the bed to prevent acid reflux, avoid NSAIDs
-Distal rectal polyp noted on colonoscopy
For transanal excision today with Dr. Mcintosh in the OR
-Iron deficiency anemia
She will need outpatient capsule study after discharge
Follow-up with GI in 6 weeks
Subjective
Subjective
Date of Service: April 08, 2024
No events overnight
Objective
Data Reviewed
Laboratory Data:
Laboratory Results
04/08/24 07:57
04/05/24 03:49
Laboratory Results
PT 13.6 Sec (11.4-14.6) 04/04/24 21:06
INR 1.06 04/04/24 21:06
APTT 25.2 Sec (23.4-35.0) 04/04/24 21:06
Magnesium 2.0 mg/dl (1.6-2.3) 04/05/24 03:49
Total Bilirubin 0.4 mg/dl (0.2-1.3) 04/04/24 21:06
AST 19 U/L (14-36) 04/04/24 21:06
ALT 14 U/L (0-35) 04/04/24 21:06
Alkaline Phosphatase 86 U/L (38-126) 04/04/24 21:06
Vital Signs and I&O:
Vital Signs
Temp Pulse Resp BP Pulse Ox
99.3 F 90 17 136/69 92
04/08/24 11:17 04/08/24 11:17 04/08/24 11:17 04/08/24 11:17 04/08/24 11:17
I&O
04/07/24 04/08/24 04/09/24
06:59 06:59 06:59
Intake Total 2220 / 2220 1080 / 1080
Output Total 2950 / 2950
Balance -730 / -730 1080 / 1080
Physical Exam
Physical Exam
GI: Non Distended
[2024-04-08] MEDS: FERRLECIT 110 MG IV (13:03)
--- NOTE | 2024-04-08 16:44 | CM ---
Spoke with pt and SO Felix in room.
Pt is going for surgery for polyp removal.
She is skilled nursing at [facility].
Will need ambulance at in for right sided paralysis.
PLAN Return To [facility]
--- NOTE | 2024-04-08 17:16 | W.IMMPOSTOP ---
Addendum entered and electronically signed by Jhon Mcintosh MD 04/08/24 17:23:
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
Original Note:
Surgical Immed Post Op Note
-
Primary Surgeon: Sherice Mcintosh MD
Assisting Surgeon: none
Pre-op Diagnosis: rectal polyp
Post-op Diagnosis: same
Procedure Performed: 1) flexible sigmoidoscopy 2) transanal excision rectal polyp
Anesthesia Type: general plus local
Specimen / Cultures: rectal polyp
Estimated Blood Loss: 10 cc
Complications: no immediate
Operative Findings: 2.5 cm right posterior polyp at 5-6 cm from anal verge
Gelfoam anal tampon in anorectum.
Sending back to med surg.
Diet being resumed.
[2024-04-08 17:43] LABS: Glucose - Point of Care 155 mg/dl (70-99)
[2024-04-08] MEDS: DILAUDID 0.5 MG IV (18:20)
[2024-04-08] MEDS: NOVOLOG FLEXPEN-MODERATE RESISTANCE 1 UNITS SC (19:16)
[2024-04-08] MEDS: LIPITOR PO (19:19)
[2024-04-08] MEDS: REMERON PO (20:36)
[2024-04-08] MEDS: MELATONIN PO (20:36)
[2024-04-08] MEDS: PROTONIX 40 MG PO (20:36)
[2024-04-08 22:17] LABS: Glucose - Point of Care 260 mg/dl (70-99)
[2024-04-09 03:10] VITALS: BP 126/60
--- NOTE | 2024-04-09 06:43 | W.PN.UPDATE ---
Addendum entered and electronically signed by JOSEFINA Alan 04/09/24 07:03:
no stools recorded overnight, hbg pending if stable ok from GI for discharge. will sign off call with questions.
Original Note:
Update Note
Progress Note Update
message sent to office to arrange Video capsule for anemia. Pt scheduled GI follow up with Aura Chairez 05/28 11:30 AM
[2024-04-09 07:48] VITALS: BP 133/68
[2024-04-09 07:59] LABS: Glucose - Point of Care 121 mg/dl (70-99)
[2024-04-09] MEDS: LIDOCAINE 4% PATCH 1 PATCH TOPICAL ×2 (08:21)
--- NOTE | 2024-04-09 08:53 | W.PN.CRS1 ---
Today's Communication / Plan
-
Follow-up hemoglobin.
Diet advanced.
Discharge as per primary team.
Assessment/Plan
-
POD 1 s/p transanal excision of rectal polyp.
Operative findings reviewed.
Advance diet.
Disposition as per the primary team.
Subjective Data
Procedure
04/08/24 Transanal excision of rectal polyp
Subjective Data
Date of Service: April 09, 2024
No complaints. She has no pain. No bowel movement.
Objective Data
-
Vital Signs
Temp Pulse Resp BP Pulse Ox
98.4 F 80 18 133/68 98
04/09/24 07:48 04/09/24 07:48 04/09/24 07:48 04/09/24 07:48 04/09/24 07:48
Intake & Output
04/08/24 04/09/24 04/10/24
06:59 06:59 06:59
Intake Total 1080 / 1080 340 / 340
Balance 1080 / 1080 340 / 340
Intake:
Oral fluids 1080 / 1080 240 / 240
IV fluids (Total) 100 / 100
Normosol 100 / 100
Other:
How many times incontinent 2
MODERATE amount urine
How many times incontinent 2
SATURATED amount urine
Lab Results
04/05/24 03:49
Physical Exam
-
General: No Acute Distress
Abdomen: Soft, Non Distended and Non Tender
Rectal: No Gross Bleeding
[2024-04-09] MEDS: NORVASC 10 MG PO (09:33)
[2024-04-09] MEDS: NOVOLOG FLEXPEN-MODERATE RESISTANCE SC ×2 (09:33→11:25)
[2024-04-09] MEDS: PROTONIX 40 MG PO (09:33)
[2024-04-09] MEDS: SYMMETREL PO ×2 (09:33→09:38)
[2024-04-09] MEDS: VITAMIN B-12 1000 MCG PO (09:33)
[2024-04-09] MEDS: ZESTRIL 5 MG PO (09:33)
[2024-04-09] MEDS: ASPIR LOW (ENTERIC COATED) 81 MG PO (09:33)
--- NOTE | 2024-04-09 10:11 | W.PN.HOSP.TC ---
Today's Communication/Plan
-
Await CBC
Discharge
Assessment / Plan
Assessment / Plan
Gen-AAOx3, NAD
HEENT-NC, AT, anicteric, clear oral mm
Neck-supple
CV-reg, no M, +S1/S2
Lungs-clear B/L
Abd-soft, NT, ND
Ext-no edema
Musculoskeletal-no cyanosis, clubbing
Skin-warm and dry
Neuro-grossly non-focal
Psych-calm, cooperative
Subacute GI bleed -upper versus lower etiology. Hemodynamically stable. Monitor hemoglobin. EGD done on 04/06 shows LA grade B esophagitis, 9 cm hiatal hernia, multiple gastric polyps. Colonoscopy completed on 04/07 showing a poor prep, stool
throughout the colon, polypoid lesion in the distal rectum which was biopsied, measuring 20 to 22 mm and villous appearing.
CT of abdomen/pelvis negative for obstruction. Air-fluid levels throughout the normal caliber small bowel loops noted suggesting either ileus or enteritis. Increased posterior bladder wall thickening also noted on CT. Will need further evaluation
when time permits. Uterine enlargement but likely related to fibroids.
Rectal polyp removed yesterday by colorectal surgery. Pathology pending.
GI recommends outpatient video capsule endoscopy. GI service to arrange. Discussed with patient and significant other.
Acute blood loss anemia -due to GI bleed. Last transfused on March 26 for hemoglobin of 7.3. Hemoglobin pending for today.
Baseline chronic microcytic anemia noted. Ferritin low, 6.8. Serum iron elevated, percentage saturation 45. Low normal B12 noted. Folic acid normal. Oral B12 started.
History of stroke with right hemiparesis -continue aspirin.
Essential hypertension -stable.
Hyperlipidemia -on atorvastatin.
DM2 with hyperglycemia -hemoglobin A1c was 7.6% in January. She is on saxagliptin, metformin at home. Hold oral agents. Currently on aspart moderate resistance scale. Glucose 121 this morning.
Depression
DNR
Dispo -can discharge back to half-way today if hemoglobin stable. Discussed with patient and significant other. Discussed with case management. Outpatient follow-up with PCP and GI. Nursing to remove oxygen and monitor.
33 minutes spent in discharge process.
Anticipated Discharge: Today
Subjective/Interval History
-
Date of Service: April 09, 2024
Patient seen and examined. No complaints.
Objective Data
-
Labs:
Laboratory Results
04/09/24
06:00
WBC Pending
Hgb Pending
Hct Pending
Plt Count Pending
Vital Signs:
Vital Signs
Temp Pulse Resp BP Pulse Ox
98.4 F 80 18 133/68 98
04/09/24 07:48 04/09/24 07:48 04/09/24 07:48 04/09/24 07:48 04/09/24 07:48
I&O
04/08/24 04/09/24 04/10/24
06:59 06:59 06:59
Intake Total 1080 / 1080 340 / 340
Balance 1080 / 1080 340 / 340
Review of Systems
-
History Source: Patient
All other systems: Reviewed and negative
--- NOTE | 2024-04-09 10:31 | CM ---
MD indicated possible dc today.
Postop surgery for polyp removal.
Spoke with Rajendra at [facility] Updated referral placed.Aware of dc today.
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
IMM signed yesterday by DEMETRIO [place].
Requested ambulance right hemiparesis Medical nec form completed.
[facility]
report [phone]
fax [phone]
PLAN Return To [facility]
[2024-04-09 11:08] VITALS: BP 137/70
[2024-04-09 11:15] LABS: Glucose - Point of Care 178 mg/dl (70-99)
[2024-04-09 11:59] LABS: % Basophils 0.3 % (0-2); % Eosinophils 0.1 % (0-6); % Immature Granulocytes 0.6 % (0-0.5); % Lymphocytes 8.8 % (20.5-51.1); % Neutrophils 85.2 % (42.2-75.2); Absolute Immature Granulocytes 0.1 10^3/uL (0-0.05); Absolute Lymphocytes 1.4 10^3/uL (1.2-3.4); Absolute Monocytes 0.8 10^3/uL (0.1-0.6); Absolute Neutrophils 13.5 10^3/uL (1.4-6.5); Hematocrit 27.1 % (37.0-47.0); Mean Corp Hgb Conc. 33.2 g/dL (33.0-37.0); Mean Corpuscular Hgb 23.8 pg (27.0-31.0); Mean Corpuscular Volume 71.7 fL (81.0-99.0); Nucleated Red Blood Cells % 0 %; Platelet Count 591 10^3/uL (130-400); Red Blood Cell Count 3.78 10^6/uL (4.20-5.40); Red Cell Dist. Width 17.7 % (11.5-14.5); White Blood Cell Count 15.8 10^3/uL (4.8-10.8)
[2024-04-09 12:35] VITALS: BP 130/71; PULSE 98; O2SAT 93
--- NOTE | 2024-04-09 12:48 | W.DS.TRANS ---
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
-
Discharge Instructions:
Discharge Diagnosis/Procedures GI bleed, anemia
Diet Diabetic, Carb Controlled
Activity As tolerated
Driving Restrictions As prior to admission
Bathing Restrictions None
Instructions:
Stand-Alone Forms:
Changes to Home Medications: No
Discharge Medications:
DC Medications w/original date entered in [facility]
melatonin 3 mg tablet 3 mg PO HS Sleep ##0 12/14/23
atorvastatin 20 mg tablet 40 mg (2 x 20 mg) PO QPM #1 tab 12/17/23
lisinopril 5 mg tablet 5 mg PO DAILY #1 tab 12/17/23
acetaminophen 325 mg tablet (Tylenol) 650 mg PO Q4HPRN PRN MILD PAIN/FEVER 03/26/24
amantadine HCl 100 mg tablet 100 mg PO DAILY Mental Health/Anxiety 03/26/24
amlodipine 10 mg tablet (Norvasc) 10 mg PO DAILY Blood Pressure 03/26/24
aspirin 81 mg tablet,delayed release 81 mg PO DAILY Blood Clot Prevention/Tx 03/26/24
bisacodyl 10 mg rectal suppository (Dulcolax (bisacodyl)) 10 mg ID [id number] PRN IF NO BM AFTR MOM 03/26/24
lidocaine 4 % topical patch 1 patch topical DAILY RIGHT SHOULDER 03/26/24
magnesium hydroxide 400 mg/5 mL oral suspension (Milk of Magnesia) 2,400 mg PO HSPRN PRN CONSTIPATION 03/26/24
magnesium oxide 400 mg PO TID Electrolyte Repletion 03/26/24
metformin 500 mg tablet 1,000 mg PO BID Diabetes 03/26/24
methocarbamol 500 mg tablet 500 mg PO Q8H Muscle Spasms 03/26/24
mirtazapine 15 mg tablet 15 mg PO HS Mental Health/Anxiety 03/26/24
ondansetron HCl 4 mg tablet 4 mg PO Q6HPRN PRN NAUSEA 03/26/24
phenol-phenolate sodium lozenges 1 jeny mucous membrane Q6HPRN PRN DRY THROAT 03/26/24
saxagliptin 5 mg tablet (Onglyza) 5 mg PO DAILY Diabetes 03/26/24
ascorbic acid (vitamin C) 500 mg tablet (Vitamin C) 500 mg PO BID Supplement 04/04/24
ferrous sulfate 325 mg (65 mg iron) tablet 325 mg PO BID Supplement 04/04/24
lidocaine 4 % topical patch 1 patch topical DAILY Pain 04/04/24
cyanocobalamin (vitamin B-12) 1,000 mcg tablet 1,000 mcg PO DAILY #30 tabs 04/09/24
pantoprazole 40 mg tablet,delayed release 40 mg PO BID #0 tabs 04/09/24
Home Medication Changes
Pending Results: No
[2024-04-09] MEDS: NOVOLOG FLEXPEN-MODERATE RESISTANCE 1 UNITS SC (13:39)
[2024-04-09] MEDS: FERRLECIT 110 MG IV (13:59)
[2024-04-09 15:21] VITALS: BP 135/71
[2024-04-10 08:24] LABS: Endomysial IgA Antibody Titer <1:10 (<1:10)
[2024-04-14 15:04] LABS: tTG IgG Antibody 3.9 EU/ml (0-19)
== END 2024-04-09 16:56 | DRG 393 ==
LOC: 3 WEST ACU 23:04
PROVIDERS: Internal Medicine Gastroenterology; Physician Assistant Medical; ADMITTING PHYSICIAN Internal Medicine; ATTENDING PHYSICIAN Hospitalist; CONSULT PHYSICIAN Internal Medicine Gastroenterology; CONSULT PHYSICIAN Surgery; EMERGENCY PHYSICIAN Emergency Medicine
PROC: 0DB28ZX Excision of Middle Esophagus, Via Natural or Artificial Opening Endoscopic, Diagnostic (ICD-10-PCS; 2024-04-06)
PROC: 0DB68ZX Excision of Stomach, Via Natural or Artificial Opening Endoscopic, Diagnostic (ICD-10-PCS; 2024-04-06)
PROC: 0DBP8ZX Excision of Rectum, Via Natural or Artificial Opening Endoscopic, Diagnostic (ICD-10-PCS; 2024-04-07)
PROC: 0DJD8ZZ Inspection of Lower Intestinal Tract, Via Natural or Artificial Opening Endoscopic (ICD-10-PCS; 2024-04-08)
PROC: 0DBP8ZZ Excision of Rectum, Via Natural or Artificial Opening Endoscopic (ICD-10-PCS; 2024-04-08)
DX: D12.8 Benign neoplasm of rectum (principal); K21.01 Gastro-esophageal reflux disease with esophagitis, with bleeding; D62 Acute posthemorrhagic anemia; I69.351 Hemiplegia and hemiparesis following cerebral infarction affecting right dominant side; F32.A Depression, unspecified; I10 Essential (primary) hypertension; E11.65 Type 2 diabetes mellitus with hyperglycemia; K31.7 Polyp of stomach and duodenum; K44.9 Diaphragmatic hernia without obstruction or gangrene; Z66 Do not resuscitate; E78.00 Pure hypercholesterolemia, unspecified; F41.9 Anxiety disorder, unspecified; K59.00 Constipation, unspecified; R00.0 Tachycardia, unspecified; R15.9 Full incontinence of feces; R19.7 Diarrhea, unspecified; R32 Unspecified urinary incontinence; Z79.4 Long term (current) use of insulin; Z79.82 Long term (current) use of aspirin; Z79.84 Long term (current) use of oral hypoglycemic drugs; Z79.899 Other long term (current) drug therapy; Z88.8 Allergy status to other drugs, medicaments and biological substances
CPT/HCPCS: 88305; 71045; 74022; 74177; 80048; 80053; 82607; 82728; 82746; 82784; 82962; 83516; 83540; 83550; 83735; 85014; 85018; 85025; 85027; 85610; 85730; 86231; 86850; 86900; 86901; 87070; 88313; 88342; 96374; 96375; 97163; 97167; 99291; J2916; Q9967

== ENCOUNTER 2024-06-06 17:03 | Inpatient (IN) | payer MEDICARE, SELFPAY ==
[2024-06-06 13:29] VITALS: BP 123/82
[2024-06-06 15:31] VITALS: BMI 26.6
[2024-06-06 15:32] VITALS: BP 119/74
[2024-06-06 15:34] LABS: % Basophils 0.4 % (0-2); % Eosinophils 1.9 % (0-6); % Immature Granulocytes 0.7 % (0-0.5); % Lymphocytes 7.7 % (20.5-51.1); % Monocytes 6.6 % (1.7-9.3); % Neutrophils 82.7 % (42.2-75.2); Absolute Basophils 0.1 10^3/uL (0-0.2); Absolute Eosinophils 0.4 10^3/uL (0-0.7); Absolute Immature Granulocytes 0.1 10^3/uL (0-0.05); Absolute Lymphocytes 1.4 10^3/uL (1.2-3.4); Absolute Monocytes 1.2 10^3/uL (0.1-0.6); Absolute Neutrophils 15.3 10^3/uL (1.4-6.5); Hematocrit 38.4 % (37.0-47.0); Mean Corp Hgb Conc. 31.3 g/dL (33.0-37.0); Mean Corpuscular Hgb 23.6 pg (27.0-31.0); Mean Corpuscular Volume 75.6 fL (81.0-99.0); Nucleated Red Blood Cells % 0 %; Platelet Count 546 10^3/uL (130-400); Red Blood Cell Count 5.08 10^6/uL (4.20-5.40); White Blood Cell Count 18.5 10^3/uL (4.8-10.8)
--- NOTE | 2024-06-06 15:38 | ED.GENMED ---
History of Present Illness
General
Chief Complaint: Skin Problem
Source: patient and family
Time Seen by Provider: 06/06/24 14:53
History of Present Illness
History of Present Illness:
This is 74-year-old female with a history of stroke and diabetes who presents with a significant worsening rash under her right axilla. She was in the rehab center and they are put powder under her axilla. At home family was putting powder on once
a day. He then realized he should have been putting on 3 times a day. He did talk to her primary care doctor and she was placed on fluconazole once a week 100 mg. She x 3 weeks. This past week she took 200 mg. The rash has been getting worse
and now she has a rash spread all across her back. No fevers. She is diabetic.
Past History
Past History
ED Past Medical History: CVA (), HTN, Hypercholesterolemia, NIDDM and Other (GI bleed)
Social History
Tobacco: Non-smoker
Alcohol: None
Drug: None
Personal:
Living: longterm
Employment: Not employed
Family History
Family History: Other (reviewed and non-contributory)
Phy Exam
Physical Exam
Physical Exam:
CONSTITUTIONAL Patient alert and oriented to person, place and time. Well-appearing. Vital signs reviewed.
HEAD atraumatic, normocephalic.
EYES eyelids normal to inspection, Extraocular muscles intact, Conjunctiva normal, Sclera normal.
NECK normal range of motion, Trachea midline, no jugular venous distention.
RESPIRATORY CHEST No respiratory distress noted, Chest expansion equal
BACK see skin exam
UPPER EXTREMITY no cyanosis, no edema.
LOWER EXTREMITY no cyanosis, no edema.
NEURO right-sided paralysis noted [place] coma scale 15, Memory normal, Cranial Nerves intact to screening exam.
SKIN skin warm, dry. Right axillary region with large reddened rash throughout the axilla. It spreads down towards the right side of the chest wall to the right flank. There are areas of excoriation. She has a salmon-colored macular rash that
spreads across the, right flank and a little bit anteriorly.
Course
Orders/Labs/Results
Orders:
Orders
06/06/24 15:21
Complete Blood Count/With Diff Urgent
Comprehensive Metabolic Panel Urgent
06/06/24 15:58
CeFAZolin 1 GRAM [Ancef] 1 gram in 5 ml IV NOW
Abnormal Lab Results
06/06/24
15:21
WBC 18.5 H 10^3/uL
(4.8-10.8)
MCV 75.6 L fL
(81.0-99.0)
MCH 23.6 L pg
(27.0-31.0)
MCHC 31.3 L g/dL
(33.0-37.0)
RDW 17.0 H %
(11.5-14.5)
Plt Count 546 H 10^3/uL
(130-400)
Abs Immat Gran (auto) 0.1 H 10^3/uL
(0-0.05)
Absolute Neuts (auto) 15.3 H 10^3/uL
(1.4-6.5)
Absolute Monos (auto) 1.2 H 10^3/uL
(0.1-0.6)
Immature Gran % 0.7 H %
(0-0.5)
Neutrophils % 82.7 H %
(42.2-75.2)
Lymphocytes % 7.7 L %
(20.5-51.1)
BUN 18 H mg/dl
(7-17)
Creatinine 0.5 L mg/dL
(0.6-1.0)
Glucose 175 H mg/dl
(70-99)
06/06/24 15:21
06/06/24 15:21
Vital Signs
Initial and Last Documented VS:
Initial Vital Signs
Temp Pulse Resp BP Pulse Ox
98.1 F 119 18 123/82 96
06/06/24 13:29 06/06/24 13:29 06/06/24 13:29 06/06/24 13:29 06/06/24 13:29
Last Documented Vital Signs
Temp Pulse Resp BP Pulse Ox
98.1 F 87 18 119/74 98
06/06/24 13:29 06/06/24 15:32 06/06/24 13:29 06/06/24 15:32 06/06/24 15:32
MDM/Problems Addressed
MDM/Problems Addressed:
Leukocytosis, cellulitis, cutaneous candidiasis
*Pulse Oximetry
Patient hypoxic: no
*Critical Care Note
Total Time (30-74mins, 75-104mins- exclusive of procedures): Not Applicable
Data Reviewed
Review of Other/Old Records Reveals: Discharge Summary
Source: patient and family
Patient Management
Discussion with other providers: Fuel Attendant (Case discussed with infectious disease)
Escalation/DeEscalation of care consider admission/obs:
75-year-old diabetic with a severe right axillary infection. I suspect cutaneous candidiasis over cellulitis but her white count is noted to be elevated. Discussed with infectious disease who recommends topical miconazole as well as cefazolin.
ED Attending Note
-
Portions of this chart may have been created with voice recognition software.� Occasional wrong word or��sound alike� substitutions may have occurred due to the inherent limitations of voice recognition software.
Discharge Plan
Departure
Patient Disposition: Admit
Date of Disposition: 06/06/24
Time of Disposition: 16:01
Admit to: Med/Surg
Presentation/result/management discussed w/ accepting MD/DO: Hospitalist
Discharge Problem:
Cellulitis, Candidiasis of skin
Prescriptions:
No Action
melatonin 3 mg Tablet
3 mg PO HS Qty: 0
lisinopril 5 mg Tablet
5 mg PO DAILY Qty: 1 0RF
atorvastatin 20 mg Tablet
40 mg PO QPM Qty: 1 0RF
amantadine HCl 100 mg Tablet
100 mg PO DAILY
methocarbamol 500 mg Tablet
500 mg PO Q8H
metformin 500 mg Tablet
1,000 mg PO BID
acetaminophen [Tylenol] 325 mg Tablet
650 mg PO Q4HPRN PRN (Reason: MILD PAIN/FEVER)
lidocaine 4 % Adhesive Patch,Medicated
1 patch TOPICAL DAILY
ondansetron HCl 4 mg Tablet
4 mg PO Q6HPRN PRN (Reason: NAUSEA)
aspirin 81 mg Tablet,Delayed Release (Dr/Ec)
81 mg PO DAILY
magnesium hydroxide [Milk of Magnesia] 400 mg/5 mL Suspension
2,400 mg PO HSPRN PRN (Reason: CONSTIPATION)
amlodipine [Norvasc] 10 mg Tablet
10 mg PO DAILY
bisacodyl [Dulcolax (bisacodyl)] 10 mg Suppository
[address] [id number] PRN (Reason: IF NO BM AFTR MOM)
mirtazapine 15 mg Tablet
15 mg PO HS
phenol-phenolate sodium Lozenge
1 jeny MUCOUS MEMBRANE Q6HPRN PRN (Reason: DRY THROAT)
saxagliptin [Onglyza] 5 mg Tablet
5 mg PO DAILY
magnesium oxide 400 mg magnesium Tablet
400 mg PO TID
lidocaine 4 % Adhesive Patch,Medicated
1 patch TOPICAL DAILY
Rx Instructions:
Apply to Right Knee
ascorbic acid (vitamin C) [Vitamin C] 500 mg Tablet
500 mg PO BID
ferrous sulfate 325 mg (65 mg iron) Tablet
325 mg PO BID
cyanocobalamin (vitamin B-12) 1,000 mcg Tablet
1,000 mcg PO DAILY Qty: 30 0RF
pantoprazole 40 mg Tablet,Delayed Release (Dr/Ec)
40 mg PO BID Qty: 0 0RF
Referrals:
Bryan Beverly MD [Family Provider] -
Interventions
Interventions:
*Risk Screen - Suicide Last Done: 06/06/24 13:29
*General Assessment Last Done: 06/06/24 13:29
*Neglect/Abuse Screening Last Done: 06/06/24 13:29
*ED COVID-19 Vaccine History Last Done: 06/06/24 14:33
ED-Skin Assessment Last Done: 06/06/24 14:32
Discharge Date and Time
Print Language: MALTESE
[2024-06-06 15:49] LABS: ALT (SGPT) 15 U/L (0-35); AST (SGOT) 20 U/L (14-36); Albumin 4.8 g/dl (3.5-5.0); Alkaline Phosphatase 91 U/L (38-126); Blood Urea Nitrogen 18 mg/dl (7-17); Calcium 10.1 mg/dl (8.4-10.2); Carbon Dioxide 23 mmol/L (22-30); Chloride 100 mmol/L (98-107); Estimated Creatinine Clearance 73 ml/min; Glucose 175 mg/dl (70-99); Potassium 4.9 mmol/L (3.5-5.1); Sodium 142 mmol/L (135-145); Total Bilirubin 0.4 mg/dl (0.2-1.3); Total Protein 7.4 g/dl (6.3-8.2); eGFR > 60.00
[2024-06-06 16:00] VITALS: BP 122/71
[2024-06-06] MEDS: ANCEF 5 IV ×2 (16:33→23:14)
--- NOTE | 2024-06-06 16:50 | HPS.HSE ---
Family Physician
-
Family Physician: Bryan Beverly
Chief Complaint
-
rash
History of Present Illness
74-year-old female past medical history of subacute GI bleeding, chronic microcytic anemia, CVA with right hemiparesis, hypertension, hyperlipidemia, type 2 diabetes, depression, presenting with significant worsening rash under her right armpit that
originally started 2 months ago.
Patient was recently admitted in April for GI bleeding and then discharged to rehab. Around 2 months ago she developed a rash under her right armpit. She was prescribed topical powder but son was only using it once a day instead of 3 times a day
as intended to be prescribed. Rash got worse and he started using it 3 times a day with some improvement. She saw the primary care physician due to lack of improvement who prescribed fluconazole weekly. Patient took first dose last but
the rash is gone significantly worse since that time. Rash is wet with drainage of green discharge. No fevers or chills.
Rash is also spread to involve her sides, buttocks.
Son thinks that diabetes is well-controlled although patient does not check her blood sugar at home.
Patient does not smoke or drink alcohol.
Medical History
Past Medical History
Past Medical History: Reports Other (subacute GI bleeding, chronic microcytic anemia, CVA with right hemiparesis, hypertension, hyperlipidemia, type 2 diabetes, depression,)
Past Surgical History: Reports None
Social History
Tobacco: Non-smoker
Alcohol: None
Drug: None
Family History
Family History: Not pertinent
Allergies / Home Medications
Allergies reflects when Allergies were last updated in [employer].
Home Medications with original date entered in [employer]
Allergy/Medication List:
Allergies
Allergy/AdvReac Type Severity Reaction Status Date / Time
cortisone Allergy Unknown Verified 06/06/24 13:29
Home Medications
melatonin 3 mg tablet 3 mg PO HS Sleep ##0 12/14/23
atorvastatin 20 mg tablet 40 mg (2 x 20 mg) PO QPM #1 tab 12/17/23
lisinopril 5 mg tablet 5 mg PO DAILY #1 tab 12/17/23
acetaminophen 325 mg tablet (Tylenol) 650 mg PO Q4HPRN PRN MILD PAIN/FEVER 03/26/24
amantadine HCl 100 mg tablet 100 mg PO DAILY Mental Health/Anxiety 03/26/24
amlodipine 10 mg tablet (Norvasc) 10 mg PO DAILY Blood Pressure 03/26/24
aspirin 81 mg tablet,delayed release 81 mg PO DAILY Blood Clot Prevention/Tx 03/26/24
magnesium oxide 400 mg PO TID Electrolyte Repletion 03/26/24
metformin 500 mg tablet 1,000 mg PO BID Diabetes 03/26/24
mirtazapine 15 mg tablet 15 mg PO HS Mental Health/Anxiety 03/26/24
ondansetron HCl 4 mg tablet 4 mg PO Q6HPRN PRN NAUSEA 03/26/24
saxagliptin 5 mg tablet (Onglyza) 5 mg PO DAILY Diabetes 03/26/24
ascorbic acid (vitamin C) 500 mg tablet (Vitamin C) 500 mg PO BID Supplement 04/04/24
ferrous sulfate 325 mg (65 mg iron) tablet 325 mg PO BID Supplement 04/04/24
cyanocobalamin (vitamin B-12) 1,000 mcg tablet 1,000 mcg PO DAILY #30 tabs 04/09/24
pantoprazole 40 mg tablet,delayed release 40 mg PO BID #0 tabs 04/09/24
Review of Systems
-
History Source: Patient
A 12 point ROS was completed and negative except as noted: Yes
Constitutional: Reports No Symptoms
EENT: Reports No Symptoms
Respiratory: Reports No Symptoms
Cardiac: Reports No Symptoms
Abdomen/GI: Reports No Symptoms
: Reports No Symptoms
Musculoskeletal: Reports No Symptoms
Skin: Reports See HPI
Neurological: Reports No Symptoms
Endocrine: Reports No Symptoms
Hematologic/Lymphatic: Reports No Symptoms
Psych: Reports No Symptoms
Physical Exam
Vital Signs
Vital Signs
Temp Pulse Resp BP Pulse Ox
98.1 F 87 18 119/74 98
06/06/24 13:29 06/06/24 15:32 06/06/24 13:29 06/06/24 15:32 06/06/24 15:32
Physical Exam
General: Well Developed, Well Nourished and No Apparent Distress
HEENT: NormoCephalic, Moist mucous membranes and Atraumatic
Respiratory: Clear
Cardiac: S1/S2 and Regular Rhythm; No Murmur or Rub
GI: Soft, Non Tender, Non Distended and Normal Bowel Sounds; No Organomegaly
Rectal: Deferred by Provider
Musculoskeletal: No Clubbing, No Cyanosis and No Edema
Skin: Other (right axilla erythematous wet rash, flank and buttock rash ); No Rash
Neuro: Nonfocal/grossly intact
Laboratory Results
-
06/06/24 15:21
06/06/24 15:21
Laboratory Results
Total Bilirubin 0.4 mg/dl (0.2-1.3) 06/06/24 15:21
AST 20 U/L (14-36) 06/06/24 15:21
ALT 15 U/L (0-35) 06/06/24 15:21
Alkaline Phosphatase 91 U/L (38-126) 06/06/24 15:21
Data Reviewed
-
Lab Data: Labs Reviewed by me
Old Records: Reviewed
Impression/Plan
-
IMPRESSION:
PLAN:
# Right axilla rash likely candidiasis with bacterial superinfection
-However has not been improving with first dose of fluconazole
-Labs show leukocytosis
-ID recommends Ancef/topical miconazole
-May need dermatology evaluation if no further improvement
History of subacute GI bleeding
-Continue Protonix
Chronic microcytic anemia
-Improved
-Continue ferrous sulfate
History of CVA with right-sided hemiparesis
-Continue aspirin
Essential hypertension
-Continue amlodipine
-Continue lisinopril
Hyperlipidemia
-Continue statin
Type 2 diabetes
-Continue metformin, saxagliptin
-Moderate insulin sliding scale
Depression
-Continue mirtazapine
DNR/DNI
DVT prophylaxis�heparin
Diabetic diet
[2024-06-06 18:00] VITALS: BP 123/67
[2024-06-06 19:30] VITALS: BP 111/58; BMI 27.0
[2024-06-06] MEDS: PROTONIX 40 MG PO (20:42)
[2024-06-06] MEDS: ANTIFUNGAL CLEAR 1 APPLIC TOPICAL (20:42)
[2024-06-06] MEDS: REMERON 15 MG PO (20:42)
[2024-06-06] MEDS: LIPITOR 40 MG PO (20:43)
[2024-06-06] MEDS: HEPARIN 5000 UNITS SC (20:43)
[2024-06-06 21:02] VITALS: BMI 27.5
[2024-06-06 21:45] LABS: Glucose - Point of Care 139 mg/dl (70-99)
[2024-06-06] MEDS: MAG-TAB SR 84 MG PO (23:14)
[2024-06-06] MEDS: MELATONIN 10 MG PO (23:14)
[2024-06-06 23:30] VITALS: BP 130/75
[2024-06-07 06:29] LABS: % Basophils 0.5 % (0-2); % Eosinophils 2.5 % (0-6); % Immature Granulocytes 0.6 % (0-0.5); % Lymphocytes 11.4 % (20.5-51.1); % Monocytes 7.9 % (1.7-9.3); % Neutrophils 77.1 % (42.2-75.2); Absolute Basophils 0.1 10^3/uL (0-0.2); Absolute Eosinophils 0.3 10^3/uL (0-0.7); Absolute Immature Granulocytes 0.1 10^3/uL (0-0.05); Absolute Lymphocytes 1.3 10^3/uL (1.2-3.4); Absolute Monocytes 0.9 10^3/uL (0.1-0.6); Absolute Neutrophils 8.7 10^3/uL (1.4-6.5); Hematocrit 34.3 % (37.0-47.0); Hemoglobin 11.2 g/dL (12.0-16.0); Mean Corp Hgb Conc. 32.7 g/dL (33.0-37.0); Mean Corpuscular Hgb 24.8 pg (27.0-31.0); Mean Corpuscular Volume 75.9 fL (81.0-99.0); Mean Platelet Volume 9.3 fL (7.4-10.4); Nucleated Red Blood Cells % 0 %; Platelet Count 455 10^3/uL (130-400); Red Blood Cell Count 4.52 10^6/uL (4.20-5.40); Red Cell Dist. Width 16.8 % (11.5-14.5); White Blood Cell Count 11.2 10^3/uL (4.8-10.8)
[2024-06-07 06:57] LABS: ALT (SGPT) 11 U/L (0-35); AST (SGOT) 16 U/L (14-36); Albumin 3.7 g/dl (3.5-5.0); Alkaline Phosphatase 82 U/L (38-126); Blood Urea Nitrogen 18 mg/dl (7-17); Calcium 9.5 mg/dl (8.4-10.2); Carbon Dioxide 24 mmol/L (22-30); Chloride 102 mmol/L (98-107); Estimated Creatinine Clearance 86 ml/min; Glucose 159 mg/dl (70-99); Potassium 4.3 mmol/L (3.5-5.1); Sodium 139 mmol/L (135-145); Total Bilirubin 0.4 mg/dl (0.2-1.3); Total Protein 6.1 g/dl (6.3-8.2); eGFR > 60.00
[2024-06-07 07:27] VITALS: BP 124/73
--- NOTE | 2024-06-07 07:33 | W.PN.HOSP.TC ---
Addendum entered and electronically signed by Cole Aponte MD 06/07/24 15:04:
R axilla rash likely candidiasis w bacterial superinfection
- PO fluconazole
- check QTc
- keep area dry
- check ck to make sure there is no myofasical breakdown
- check ct UE to make sure deep tissue structures no involved
- ID
- Wound care
Original Note:
Today's Communication/Plan
-
Assessment / Plan
Assessment / Plan
Ms. Christ Brooke is a 74yoF pmh HTN, DM, HLD, hx CVA admitted 06/06 for candidiasis.
R axilla rash likelyl candidiasis w bacterial superinfection
- topical miconazole
- ancef for suspected superinfection
- PO fluconazole
- check QTc
- keep area dry
- ID, woundcare consulted
Hx subacute GI bleeding
- cont protonix
Chronic microcytic anemia
- improved
- cont ferrous sulfate
Hx CVA w R-sided hemiparesis
- R UE CT pending
- cont ASA
HTN, HLD
- cont amlodipine, lisinopril, statin
DM
- HbA1c 6.3%
- iss
Depression
- cont mirtazapine
DVT prophylaxis
- heparin
Code status: DNR/DNI
Diet: diabetic
Anticipated Discharge: > 48 hours
Subjective/Interval History
-
Date of Service: June 07, 2024
Ms. Christ Brooke is a 74yoF pmh HTN, DM, HLD, hx CVA admitted 06/06 for candidiasis. The rash began 2 months ago in her R axilla. Her rash was treated 1x/day w topical powder instead of 3x/day as intended. The rash is worsening despite starting
fluconazole. The rash is pruritic. Pt denies purulence.
Objective Data
-
Labs:
Laboratory Results
06/07/24
05:57
WBC 11.2 H
Hgb 11.2 L
Hct 34.3 L
Plt Count 455 H
Sodium 139
Potassium 4.3
Chloride 102
Carbon Dioxide 24
BUN 18 H
Creatinine 0.4 L
Glucose 159 H
Calcium 9.5
Total Bilirubin 0.4
AST 16
ALT 11
Alkaline Phosphatase 82
Vital Signs:
Vital Signs
Temp Pulse Resp BP Pulse Ox
98.3 F 87 12 124/73 93
06/07/24 07:27 06/07/24 07:27 06/07/24 07:27 06/07/24 07:27 06/07/24 07:27
Review of Systems
-
History Source: Patient
All other systems: Reviewed and negative
Constitutional: Denies Fever or Chills
Respiratory: Denies Cough or Trouble Breathing
Cardiac: Denies Chest Pain or Palpitations
Abdomen/GI: Denies Abdominal Pain, Nausea, Vomiting, Diarrhea or Constipated
Genitourinary: Reports No Symptoms
Musculoskeletal: Reports Muscle Weakness (R side)
Physical Exam
-
General: Well Developed and Well Nourished
HEENT: Normocephalic and Atraumatic
Respiratory: Clear to Auscultation; Negative Wheezes, Rales or Rhonchi
Cardiac: Regular Rhythm and S1/S2; Negative Murmur, Rub or Gallop
GI: Soft, Nontender, Nondistended and Normal Bowel Sounds
Musculoskeletal: No Cyanosis and No Edema
Skin: Warm and Rash (R axilla extending to flank, back. Satellite lesions. Weeping)
Neuro: Awake, AO x 3 and No Sensory Deficits
[2024-06-07 07:53] LABS: Glucose - Point of Care 158 mg/dl (70-99)
[2024-06-07 08:25] LABS: Glycohemoglobin (HgbA1c) 6.3 % (4.0-5.6)
[2024-06-07] MEDS: HEPARIN 5000 UNITS SC ×2 (08:57→21:42)
[2024-06-07] MEDS: ANCEF 5 IV ×3 (08:58→23:06)
[2024-06-07] MEDS: PROTONIX 40 MG PO ×2 (09:01→21:43)
[2024-06-07] MEDS: ZESTRIL 5 MG PO (09:01)
[2024-06-07] MEDS: VITAMIN B-12 1000 MCG PO (09:01)
[2024-06-07] MEDS: GLUCOPHAGE XR EXTENDED RELEASE 1000 MG PO ×2 (09:01→18:17)
[2024-06-07] MEDS: SYMMETREL 100 MG PO (09:01)
[2024-06-07] MEDS: ASPIR LOW (ENTERIC COATED) 81 MG PO (09:01)
[2024-06-07] MEDS: NORVASC 10 MG PO (09:02)
[2024-06-07] MEDS: VITAMIN C 500 MG PO (09:02)
[2024-06-07] MEDS: JANUVIA 100 MG PO (09:03)
[2024-06-07] MEDS: ANTIFUNGAL CLEAR 1 APPLIC TOPICAL ×2 (09:04→21:38)
--- NOTE | 2024-06-07 09:08 | CON.ID ---
Consultation
-
Date/Time Consultation Requested: 06/06/20241941
Date/Time Consultation Performed: 06/07/2024 0910
Requesting Provider: Dr. Yefri Larson
Performing Provider: Dr. Aisha Fernandes
Reason for Consultation: Rash
Chief Complaint / Past History
Chief Complaint
Rash
History of Present Illness
74 female with history of DM, CVA right hemiplegia came to ED 06/06 due to extensive worsening rash right axilla. She reports rash started about 2 months ago located right axilla. PCP initially recommended Nystatin powder without significant
improvement. The rash continued to spread down her side. PCP then prescribed weekly fluconazole which she took the first dose. Rash continued to progress and therefore she came to hospial. WBC was 18.5. She is currently on cefazolin. Rash is
very puritic.
Past History
Additional Past Medical History:
DM
CVA right hemiplegia
HLD
HTN
Depression
Allergy History:
cortisone Allergy (Verified 06/06/24 13:29)
Unknown
Medications Reviewed: Yes
Current Antibiotics:
cefazolin d2
Social History
Tobacco: Non-Smoker
Alcohol: None
Drug: None
Living: With Family
Family History
Family History: Not Pertinent
Review of Systems
Review of Systems
General: Negative Fever, Chills or Change in Appetite
HEENT: Negative Sinus Problems, Headache or Pharyngitis
Cardiovascular: Negative Chest Pain
Respiratory: Negative Dyspnea or Cough
Gasteroenterology: Negative Nausea or Vomiting
Genital / Urological: Negative Dysuria or Flank Pain
Skin / Hair / Nails: Rash
Vital Signs
Temp Pulse Resp BP Pulse Ox
98.3 F 87 12 124/73 93
06/07/24 07:27 06/07/24 09:02 06/07/24 07:27 06/07/24 09:02 06/07/24 07:27
Physical Exam
Physical Exam
Constitutional: No Acute Distress and Comfortable
Eyes: No Conjunctival Hemorrhage and Sclera Anicteric
Cardiovascular: Regular Rate and S1/S2
Pulmonary: Clear
Gastrointestinal: Soft, Non Tender, Non Distended and Normal Bowel Sounds
Genito-Urinary: Negative CVA Tenderness
Extremities: Negative Edema
Skin: Rash (Beefy moist erythema from right axilla down to lateral torso and flank, + satellite papules beneath breast)
Lab / Diagnostic Study Results
06/07/24 05:57
06/07/24 05:57
Abs Immat Gran (auto) 0.1 10^3/uL (0-0.05) H 06/07/24 05:57
Absolute Neuts (auto) 8.7 10^3/uL (1.4-6.5) H 06/07/24 05:57
Absolute Lymphs (auto) 1.3 10^3/uL (1.2-3.4) 06/07/24 05:57
Absolute Monos (auto) 0.9 10^3/uL (0.1-0.6) H 06/07/24 05:57
Absolute Basos (auto) 0.1 10^3/uL (0-0.2) 06/07/24 05:57
Immature Gran % 0.6 % (0-0.5) H 06/07/24 05:57
Neutrophils % 77.1 % (42.2-75.2) H 06/07/24 05:57
Lymphocytes % 11.4 % (20.5-51.1) L 06/07/24 05:57
Monocytes % 7.9 % (1.7-9.3) 06/07/24 05:57
Eosinophils % 2.5 % (0-6) 06/07/24 05:57
Basophils % 0.5 % (0-2) 06/07/24 05:57
Microbiology Results
Micro:
06/07/24 05:36 MRSA Screen - Pending
Nose
Assessment / Plan
# Severe cutaneous candidiasis right axilla/flank
Risk factor: right hemiplegia with limb contracture
Start fluconazole po. Check QTc.
Keep area dry
Await Wound RN recs.
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
DM
CVA right hemiplegia
HLD
HTN
Depression
[2024-06-07] MEDS: NOVOLOG FLEXPEN-LOW RESISTANCE 1 UNITS SC ×3 (09:32→18:24)
[2024-06-07 11:57] LABS: Glucose - Point of Care 191 mg/dl (70-99)
[2024-06-07 12:08] LABS: Creatine Phosphokinase 32 U/L (30-135)
[2024-06-07] MEDS: DIFLUCAN 400 MG PO (13:02)
[2024-06-07] MEDS: MAG-TAB SR 84 MG PO ×2 (13:04→21:43)
--- NOTE | 2024-06-07 14:00 | WOUNDNOTE ---
[facility] RN note: Patient admitted with candidiasis, bacterial superinfection. Patient lives at home and lays in bed.
See H&P for complete history.
PMH: subacute GI bleed, anemia, CVA with R hemiparesis, HTN, DM, depression.
Wound Location and type/assessment: Patient admitted with: Diffuse R axilla fungal appearing rash. Back/posterior trunk with scattered generalized pinpoint rash (folliculitis?). Patient c/o itch in R Axilla and back. Patient on antifungal ointment
and Ancef. She just started po fluconazole. ID following.
Appetite: good.
Pressure redistribution devices in place: Oxigene Accumax. CHRISTEN Venegas to consider adding air overlay mattress. She needs help turning in bed. Pillow to elevate heels.
Plan: Antifungal ointment applied to back. Patient turned with help from CHRISTEN Venegas. Folded towel with absorbant disposable underpad wrapped around it reapplied in R axilla to keep skin off skin. Recommend turning patient to her L frequently to
decrease moisture to back/R side.
Will discuss with ID. Discussed with CHRISTEN Venegas who stated she tiger texted hospitalist resident asking for medication for itch.
Care plan to be updated and will follow as needed.
Note to case management requested for discharge: VN if goes home if not already in place.
Recommend follow up with title inspector.
--- NOTE | 2024-06-07 14:03 | WOUNDNOTE ---
R AXILLA/CHEST (LATERAL ANTERIOR)
--- NOTE | 2024-06-07 14:07 | WOUNDNOTE ---
R HIP/THIGH (LATERAL POSTERIOR)
[2024-06-07 15:17] VITALS: BP 120/70
[2024-06-07] MEDS: ATARAX 25 MG PO ×2 (16:05→21:42)
[2024-06-07 16:32] LABS: Glucose - Point of Care 161 mg/dl (70-99)
[2024-06-07] MEDS: LIPITOR 40 MG PO (18:15)
[2024-06-07] MEDS: SENOKOT 8.6 MG PO (18:15)
[2024-06-07] MEDS: REMERON 15 MG PO (18:17)
[2024-06-07] MEDS: DESENEX/MITRAZOL/ZEASORB 1 APPLIC TOPICAL (21:38)
[2024-06-07] MEDS: MELATONIN 10 MG PO (21:43)
[2024-06-07 21:53] LABS: Glucose - Point of Care 154 mg/dl (70-99)
--- NOTE | 2024-06-07 23:00 | PTCARENOTE ---
Pt complained of occasional dry cough. 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 Will continue to monitor.
[2024-06-07] MEDS: FLUSH (NSS) 2 FLUSH IV (23:06)
[2024-06-07] MEDS: ROBITUSSIN 200 MG PO (23:06)
[2024-06-07 23:30] VITALS: BP 130/71
[2024-06-08 07:19] VITALS: BP 147/78
[2024-06-08 07:21] LABS: Hematocrit 35.8 % (37.0-47.0); Hemoglobin 11.4 g/dL (12.0-16.0); Mean Corp Hgb Conc. 31.8 g/dL (33.0-37.0); Mean Corpuscular Hgb 24.3 pg (27.0-31.0); Mean Corpuscular Volume 76.2 fL (81.0-99.0); Mean Platelet Volume 9.2 fL (7.4-10.4); Platelet Count 420 10^3/uL (130-400); Red Cell Dist. Width 16.6 % (11.5-14.5); White Blood Cell Count 8.3 10^3/uL (4.8-10.8)
--- NOTE | 2024-06-08 07:33 | W.PN.HOSP.TC ---
Addendum entered and electronically signed by Cole Aponte MD 06/08/24 14:47:
discharge home on reduced dose of fluconazole per ID
-complete on 06/20
-stop antibiotics as unlikely bacterial in nature per ID
outpt pcp follow up
Original Note:
Today's Communication/Plan
-
.
Assessment / Plan
Assessment / Plan
Ms. Christ Brooke is a 74yoF pmh HTN, DM, HLD, hx CVA admitted 06/06 for candidiasis.
R axilla rash likely candidiasis w possible bacterial superinfection
- topical miconazole
- ancef for suspected superinfection
- PO fluconazole
- QT 400ms, monitor
- ID, woundcare consulted
Hx subacute GI bleeding
- cont protonix
Chronic microcytic anemia
- improved
- cont ferrous sulfate
Hx CVA w R-sided hemiparesis
- R UE CT pending
- cont ASA
HTN, HLD
- cont amlodipine, lisinopril, statin
DM
- HbA1c 6.3%
- januvia, metformin
- iss
Depression
- cont mirtazapine
DVT prophylaxis
- heparin
Code status: DNR/DNI
Diet: diabetic
Anticipated Discharge: Today
Subjective/Interval History
-
Date of Service: June 08, 2024
Ms. Christ Brooke is a 74yoF pmh HTN, DM, HLD, hx CVA admitted 06/06 for candidiasis. Pt is unsure if the hydroxyzine improved her itchiness. No acute overnight events.
Objective Data
-
Labs:
Laboratory Results
06/08/24
06:50
WBC 8.3
Hgb 11.4 L
Hct 35.8 L
Plt Count 420 H
Sodium Pending
Potassium Pending
Chloride Pending
Carbon Dioxide Pending
BUN Pending
Creatinine Pending
Glucose Pending
Calcium Pending
Total Bilirubin Pending
AST Pending
ALT Pending
Alkaline Phosphatase Pending
Vital Signs:
Vital Signs
Temp Pulse Resp BP Pulse Ox
98.4 F 93 18 147/78 99
06/08/24 07:19 06/08/24 07:19 06/08/24 07:19 06/08/24 07:19 06/08/24 07:19
I&O
06/07/24 06/08/24 06/09/24
06:59 06:59 06:59
Intake Total 960 / 960
Balance 960 / 960
Review of Systems
-
History Source: Patient
Constitutional: Denies Fever or Chills
Respiratory: Reports No Symptoms
Cardiac: Reports No Symptoms
Abdomen/GI: Reports No Symptoms
Musculoskeletal: Reports Muscle Weakness
Skin: Reports Itching and Rash
Neuro: Reports Weakness
Physical Exam
-
General: Well Developed and Well Nourished
HEENT: Normocephalic and Atraumatic
Respiratory: Clear to Auscultation
Cardiac: Regular Rhythm and S1/S2
GI: Soft, Nontender, Nondistended and Normal Bowel Sounds
Musculoskeletal: No Clubbing, No Cyanosis and No Edema
Skin: Warm, Dry and Rash
[2024-06-08 07:36] LABS: ALT (SGPT) 12 U/L (0-35); AST (SGOT) 17 U/L (14-36); Albumin 3.7 g/dl (3.5-5.0); Alkaline Phosphatase 77 U/L (38-126); Blood Urea Nitrogen 21 mg/dl (7-17); Calcium 9.4 mg/dl (8.4-10.2); Carbon Dioxide 26 mmol/L (22-30); Chloride 102 mmol/L (98-107); Estimated Creatinine Clearance 86 ml/min; Glucose 150 mg/dl (70-99); Potassium 4.4 mmol/L (3.5-5.1); Sodium 141 mmol/L (135-145); Total Bilirubin 0.2 mg/dl (0.2-1.3); Total Protein 6.1 g/dl (6.3-8.2); eGFR > 60.00
[2024-06-08 07:40] LABS: Glucose - Point of Care 158 mg/dl (70-99)
[2024-06-08] MEDS: PROTONIX 40 MG PO (08:03)
[2024-06-08] MEDS: VITAMIN B-12 1000 MCG PO (08:03)
[2024-06-08] MEDS: JANUVIA 100 MG PO (08:03)
[2024-06-08] MEDS: ASPIR LOW (ENTERIC COATED) 81 MG PO (08:03)
[2024-06-08] MEDS: VITAMIN C 500 MG PO (08:03)
[2024-06-08] MEDS: NORVASC 10 MG PO (08:04)
[2024-06-08] MEDS: GLUCOPHAGE XR EXTENDED RELEASE 1000 MG PO (08:05)
[2024-06-08] MEDS: SYMMETREL 100 MG PO (08:05)
[2024-06-08] MEDS: HEPARIN 5000 UNITS SC (08:06)
[2024-06-08] MEDS: ANCEF 5 IV (08:07)
[2024-06-08] MEDS: DIFLUCAN 400 MG PO (08:08)
[2024-06-08] MEDS: NOVOLOG FLEXPEN-LOW RESISTANCE 1 UNITS SC ×2 (08:09→12:17)
[2024-06-08] MEDS: DESENEX/MITRAZOL/ZEASORB 1 APPLIC TOPICAL (08:09)
[2024-06-08] MEDS: ZESTRIL 5 MG PO (08:20)
[2024-06-08] MEDS: ANTIFUNGAL CLEAR 1 APPLIC TOPICAL (08:37)
--- NOTE | 2024-06-08 11:49 | W.PN.ID1 ---
Date of Service
Date of Service: June 08, 2024
Today's Communication
Can decrease fluconazole dose to 200mg po qd through 06/20/24.
Assessment / Plan
# Severe cutaneous candidiasis right axilla
Risk factor: right hemiplegia with limb contracture
Appreciate Wound RN recs.
QTc <500
Can decrease fluconazole dose to 200mg po qd through 06/20/24.
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
DM
CVA right hemiplegia
HLD
HTN
Depression
Chief Complaint
-: Other (Rash)
Subjective / Review of Systems
Itching improved.
Vital Signs / Physical Exam
Vital Signs
Vital Signs
Temp Pulse Resp BP Pulse Ox
98.4 F 93 18 147/78 99
06/08/24 07:19 06/08/24 08:04 06/08/24 07:19 06/08/24 08:04 06/08/24 07:19
Physical Exam
Constitutional: No Acute Distress
Skin: Rash (right axilla erythema now dry. Reviewed 06/07 wound photos: also with petechial rash on right back/hip/and buttock with dry scaly skin)
Objective Data
Lab Data
Lab Results
06/08/24 06:50
06/08/24 06:50
Estimated Creat Clear 86 ml/min 06/08/24 06:50
Total Bilirubin 0.2 mg/dl (0.2-1.3) 06/08/24 06:50
AST 17 U/L (14-36) 06/08/24 06:50
ALT 12 U/L (0-35) 06/08/24 06:50
Alkaline Phosphatase 77 U/L (38-126) 06/08/24 06:50
Most recent labs reviewed.
Micro Results:
06/07/24 05:36 MRSA Screen - Final
Nose Staph aureus MRSA
Care Review
Plan reviewed with: Physician (Dr. Lantigua)
[2024-06-08 12:10] LABS: Glucose - Point of Care 152 mg/dl (70-99)
--- NOTE | 2024-06-08 12:24 | W.DCSUMMARY ---
Documented by User: Sangeeta Lantigua DO, Resident 06/08/24 12:42
Discharge Summary
Discharge Data
Date of Admission: 06/06/24
Date of Discharge: 06/08/24
-
Pending Results: No
Hospital Course
Ms. Christ Brooke is a 74yoF pmh HTN, DM, HLD, hx CVA admitted 06/06 for candidiasis. There was concern of a bacterial superinfection given the wide-spread extent of the rash. Was started on fluconazole, miconazole, and ceftriaxone. Evaluated by ID
and woundcare. No signs of bacterial superinfection at this time. Rash is appearing better, less erythematous, and has less drainage. Hemodynamically stable, afebrile. Plan to dc with fluconazole per ID recommendation
Discharge Plan
-
Patient Disposition: Home (Routine Discharge)
Discharge Diagnosis/Procedures: Candidiasis
Condition: Fair
Activity Restrictions/Additional Instructions:
Clean R axilla, back/posterior trunk rash with Vashe cleanser,
miconazole powder twice a day, antifungal ointment to open areas twice a day, keep folded towel with absorbent disposable underpad in R axilla.
Pressure redistributing chair cushion (i.e. Air chair cushion).
Turning schedule
Evaluate for air mattress
Elevate heels off bed with pillow/s.
Make appointment with power and recovery supervisor.
Hold lipitor while taking fluconazole.
Instructions: Fungal Skin Rash (DC), [facility]
Referrals:
[facility] [Provider Group] - in one to two weeks
Bryan Beverly MD [Active] - None
Prescriptions:
New
fluconazole 200 mg Tablet
200 mg PO DAILY 12 Days Qty: 12 0RF
miconazole nitrate [Miconazorb AF] 2 % Powder
1 applic topical BID 12 Days Qty: 1 0RF
Critic-Aid Clear AF(miconazol) 2 % Ointment
1 applic topical BID PRN (Reason: rash) 12 Days Qty: 1 0RF
Continued
lisinopril 5 mg Tablet
5 mg PO DAILY Qty: 1 0RF
amantadine HCl 100 mg Tablet
100 mg PO DAILY
aspirin 81 mg Tablet,Delayed Release (Dr/Ec)
81 mg PO DAILY
amlodipine [Norvasc] 10 mg Tablet
10 mg PO DAILY
mirtazapine 15 mg Tablet
15 mg PO QPM
saxagliptin [Onglyza] 5 mg Tablet
5 mg PO DAILY
magnesium oxide 400 mg magnesium Tablet
400 mg PO BID@1400,2200
ascorbic acid (vitamin C) [Vitamin C] 500 mg Tablet
500 mg PO DAILY
ferrous sulfate 325 mg (65 mg iron) Tablet
325 mg PO BID
cyanocobalamin (vitamin B-12) 1,000 mcg Tablet
1,000 mcg PO DAILY Qty: 30 0RF
pantoprazole 40 mg Tablet,Delayed Release (Dr/Ec)
40 mg PO BID Qty: 0 0RF
methocarbamol 500 mg Tablet
500 mg PO Q8H
metformin 500 mg Tablet Extended Release 24 Hr
1,000 mg PO BID
atorvastatin [Lipitor] 40 mg Tablet
40 mg PO QPM
sennosides [senna] 8.6 mg Tablet
8.6 mg PO QPM@1700
melatonin 10 mg Tablet
10 mg PO HS
Discharge Orders:
Discharge Patient (As Directed); Ordered 06/08/24
Ordered By: Sangeeta Lantigua
Discharge Date and Time
Print Language: UKRAINIAN

Documented by User: Cole Aponte MD 06/08/24 14:45
Discharge Summary
Discharge Data
Date of Admission: 06/06/24
Date of Discharge: 06/08/24
Discharge Plan
-
Patient Disposition: Home (Routine Discharge)
Discharge Diagnosis/Procedures: Candidiasis
Condition: Fair
Activity Restrictions/Additional Instructions:
Clean R axilla, back/posterior trunk rash with Vashe cleanser,
miconazole powder twice a day, antifungal ointment to open areas twice a day, keep folded towel with absorbent disposable underpad in R axilla.
Pressure redistributing chair cushion (i.e. Air chair cushion).
Turning schedule
Evaluate for air mattress
Elevate heels off bed with pillow/s.
Make appointment with power and recovery supervisor.
Hold lipitor while taking fluconazole.
Instructions: Fungal Skin Rash (DC), [facility]
Referrals:
[facility] [Provider Group] - in one to two weeks
Bryan Beverly MD [Active] - None
Prescriptions:
New
fluconazole 200 mg Tablet
200 mg PO DAILY 12 Days Qty: 12 0RF
miconazole nitrate [Miconazorb AF] 2 % Powder
1 applic topical BID 12 Days Qty: 1 0RF
Critic-Aid Clear AF(miconazol) 2 % Ointment
1 applic topical BID PRN (Reason: rash) 12 Days Qty: 1 0RF
Continued
lisinopril 5 mg Tablet
5 mg PO DAILY Qty: 1 0RF
amantadine HCl 100 mg Tablet
100 mg PO DAILY
aspirin 81 mg Tablet,Delayed Release (Dr/Ec)
81 mg PO DAILY
amlodipine [Norvasc] 10 mg Tablet
10 mg PO DAILY
mirtazapine 15 mg Tablet
15 mg PO QPM
saxagliptin [Onglyza] 5 mg Tablet
5 mg PO DAILY
magnesium oxide 400 mg magnesium Tablet
400 mg PO BID@1400,2200
ascorbic acid (vitamin C) [Vitamin C] 500 mg Tablet
500 mg PO DAILY
ferrous sulfate 325 mg (65 mg iron) Tablet
325 mg PO BID
cyanocobalamin (vitamin B-12) 1,000 mcg Tablet
1,000 mcg PO DAILY Qty: 30 0RF
pantoprazole 40 mg Tablet,Delayed Release (Dr/Ec)
40 mg PO BID Qty: 0 0RF
methocarbamol 500 mg Tablet
500 mg PO Q8H
metformin 500 mg Tablet Extended Release 24 Hr
1,000 mg PO BID
atorvastatin [Lipitor] 40 mg Tablet
40 mg PO QPM
sennosides [senna] 8.6 mg Tablet
8.6 mg PO QPM@1700
melatonin 10 mg Tablet
10 mg PO HS
Discharge Orders:
Discharge Patient (As Directed); Ordered 06/08/24
Ordered By: Sangeeta Lantigua
Discharge Date and Time
Print Language: UKRAINIAN
[2024-06-08] MEDS: MAG-TAB SR 84 MG PO (13:18)
--- NOTE | 2024-06-08 13:28 | CM ---
CM reviewed chart and noted dc order
CM met with pt, SP/Geff and son/Eduar bedside
Pt resides with SO in a 2SH with ramp entrance, 1st floor set up
Pt is nonambulatory, able to stand and pivot from hospital bed to wheelchair with 1 person assist
Unable to self propel and requires 1 person assist with all ADLs and personal care tasks due to stroke deficits
Pt has a hospital bed, WW, WC, commode and shower chair
Pt is current with [facility]
No financial insecurities
Pt only has Part A, son plans to enroll into Part B and D during open enrollment
Pt notes she is from [place] and initial plan was to seek medical care in her home country, she has not been able to do so
Pt has private duty caregivers 24/03 as SP with acute medical issues currently
PCP- Aiden Payne (notes she as discharged from [facility]'s practice)
Rx- [facility]
IMM verbally reviewed- copy provided
Transportation discussed and plan for family transport with private duty assistance
[facility] referral sent to [facility] via [facility] order requested
Discharge Disposition- home with [facility]- family transport
Fax- [phone]
[2024-06-08] MEDS: FLUAD (65 yr+) 2024-2025 FORMULA 0.5 ML IM (14:43)
[2024-06-08] MEDS: PREVNAR 20 0.5 ML IM (15:40)
[2024-06-08 15:41] VITALS: BP 121/76
== END 2024-06-08 16:20 | disposition home or self-care (01) | DRG 607 ==
LOC: 3 WEST ACU 17:03
PROVIDERS: ADMITTING PHYSICIAN Hospitalist; ATTENDING PHYSICIAN Hospitalist; EMERGENCY PHYSICIAN Emergency Medicine; FAMILY PHYSICIAN Physician Assistant; OTHER PHYSICIAN Internal Medicine Infectious Disease
DX: B37.2 Candidiasis of skin and nail (principal); I69.351 Hemiplegia and hemiparesis following cerebral infarction affecting right dominant side; D50.9 Iron deficiency anemia, unspecified; E11.9 Type 2 diabetes mellitus without complications; F32.A Depression, unspecified; I10 Essential (primary) hypertension; Z66 Do not resuscitate; E78.00 Pure hypercholesterolemia, unspecified; Z79.84 Long term (current) use of oral hypoglycemic drugs; Z79.899 Other long term (current) drug therapy; Z87.19 Personal history of other diseases of the digestive system
CPT/HCPCS: 80053; 82550; 82962; 83036; 85025; 85027; 87070; 87147; 90662; 90677; 93005; 96374; 99285; G0008; G0009